=== PATIENT | female | born 1940 | race Caucasian/White ===

== ENCOUNTER 2018-01-05 20:51 | Emergency (ER) | payer MEDICARE ==
--- NOTE | 2018-01-05 22:12 | EDM.PDOC ---
ED HPI GENERAL MEDICAL PROBLEM - General Chief Complaint: Respiratory Problem Stated Complaint: SHORTNESS OF BREATH Time Seen by Provider: 01/05/18 22:12 Source of Information: Reports: Patient History Limitations: Reports: No Limitations - History of Present Illness INITIAL COMMENTS - FREE TEXT/NARRATIVE: PT ARRIVED WITH INCREASED SOB. sHE WAS HAVINFG A VERY DIFFICULT TIME ALL AFTERNOON. sHE HAS NOT HAD CHEST PAIN. hER LEFT LEG CONTINUES TO SWELL BUT THE RT DOES NOT. sHE HAS BEEN USING HER NEBS. Onset: Gradual Duration: Hour(s): Location: Reports: Chest Associated Symptoms: Reports: Cough, Shortness of Breath - Related Data Allergies Allergy/AdvReac Type Severity Reaction Status Date / Time No Known Allergies Allergy Verified 12/20/17 09:16 Home Meds: Home Meds Albuterol Sulfate [Proair Hfa] 1 puff IH ASDIRECTED PRN 08/12/13 [History] Aspirin [Thelma Chewable Aspirin] 81 mg PO DAILY 08/12/13 [History] Insulin Aspart [Novolog Flexpen] 3 units SQ TIDAC 08/12/13 [History] Insulin Glarg,Human.Rec.Analog [Lantus] 15 unit SUBCUT QPM 08/12/13 [History] Insulin Glarg,Human.Rec.Analog [Lantus] 31 unit SUBCUT QAM 08/12/13 [History] Ipratropium/Albuterol Sulfate [Duoneb 0.5 MG-3 MG/3 ML] 3 ml IH QID 08/12/13 [ History] Omeprazole 20 mg PO DAILY 08/12/13 [History] metFORMIN HCl [Metformin HCl ER] 500 mg PO BID 08/12/13 [History] Carvedilol [Coreg] 3.125 mg PO BID 12/20/17 [History] Cevimeline HCl 30 mg PO TID 12/20/17 [History] Mometasone/Formoterol [Dulera 200 MCG/5 MCG] 2 puff INH BID 12/20/17 [History] Furosemide 20 mg PO DAILY #30 tablet 12/24/17 [Rx] Lactobacillus Acidophilus [Acidophilus Lactobacillus] 1 each PO BID #60 capsule 12/24/17 [Rx] Magnesium Oxide 400 mg PO BID #60 tablet 12/24/17 [Rx] Past Medical History HEENT History: Reports: Cataract Cardiovascular History: Reports: Heart Failure, Hypertension Other Cardiovascular History: PAD Respiratory History: Reports: Bronchitis, Recurrent, COPD, Other (See Below) Other Respiratory History: Plural plaque Gastrointestinal History: Reports: GERD Genitourinary History: Reports: Urinary Incontinence 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: Musculoskeletal History: Reports: Back Pain, Chronic Endocrine/Metabolic History: Reports: Diabetes, Type II Dermatologic History: Reports: Psoriasis - Past Surgical History HEENT Surgical History: Reports: Cataract Surgery GI Surgical History: Reports: Appendectomy Musculoskeletal Surgical History: Reports: Arthroscopic Knee Social & Family History - Tobacco Use Smoking Status *Q: Former Smoker Used Tobacco, but Quit: Yes Month/Year Tobacco Last Used: 2004 - Caffeine Use Caffeine Use: Reports: Soda - Recreational Drug Use Recreational Drug Use: No ED ROS GENERAL - Review of Systems Review Of Systems: See Below Constitutional: Reports: No Symptoms HEENT: Reports: No Symptoms Respiratory: Reports: Shortness of Breath, Wheezing Cardiovascular: Reports: Other (POSSIBLE FLUID OVERLOAD) Endocrine: Reports: No Symptoms GI/Abdominal: Reports: No Symptoms : Reports: No Symptoms Musculoskeletal: Reports: Hand Pain Skin: Reports: No Symptoms Neurological: Reports: No Symptoms ED EXAM, GENERAL - Physical Exam Exam: See Below Free Text/Narrative:: PT ARRIVED WITH A HISTORY OF COPD AND SOME FLUID OVERLOAD. sHE WAS VERY SOB ALL AFTERNOON. sHE HAS BEEN TAKING LASIX 20MG DAILY. sHE DID NOT HAVE CHEST PAIN. Exam Limited By: No Limitations General Appearance: Alert, Anxious, Moderate Distress Ears: Normal TMs Nose: Normal Inspection Throat/Mouth: Normal Inspection Head: Atraumatic Neck: Normal Inspection Respiratory/Chest: Decreased Breath Sounds, Crackles, Wheezing Cardiovascular: Regular Rate, Rhythm GI/Abdominal: Soft, Non-Tender Rectal (Female) Exam: Deferred Back Exam: Normal Inspection Extremities: Normal Inspection, Other (LEFT LEG IS SWOLLEN. ) Neurological: Alert, Oriented, Normal Cognition Psychiatric: Normal Affect Course - Vital Signs Last Recorded V/S: Last Vital Signs Temp 36.4 C 01/05/18 20:59 Pulse 102 H 01/05/18 23:10 Resp 16 01/05/18 23:10 BP 116/55 L 01/05/18 23:23 Pulse Ox 94 L 01/05/18 23:10 - Orders/Labs/Meds Orders: Active Orders 24 hr Category Date Time Status RT Aerosol Therapy [RC] ASDIRECTED Care 01/05/18 23:29 Active Chest 1V Frontal [CR] Stat Exams 01/05/18 20:53 Taken VL Duplex Lwr Ext Veins Ltd Lt [US] Stat Exams 01/05/18 22:13 Taken PTT,PARTIAL THROMBOPLSTIN TIME [COAG] Stat Lab 01/06/18 01:19 Ordered UA W/MICROSCOPIC [URIN] Urgent Lab 01/05/18 23:44 Ordered Labs: Laboratory Tests 01/05/18 01/05/18 01/05/18 Range/Units 21:09 21:09 22:02 WBC 16.1 H (4.5-11.0) K/uL RBC 5.50 (3.30-5.50) M/uL Hgb 15.2 H (12.0-15.0) g/dL Hct 48.4 H (36.0-48.0) % MCV 88 (80-98) fL MCH 28 (27-31) pg MCHC 31 L (32-36) % Plt Count 313 (150-400) K/uL Neut % (Auto) 78 H (36-66) % Lymph % (Auto) 15 L (24-44) % [place] % (Auto) 6 (2-6) % Eos % (Auto) 1 L (2-4) % Baso % (Auto) 1 (0-1) % D-Dimer, Quantitative (0.0-400.0) ng/mL Sodium 135 L (140-148) mmol/L Potassium 5.1 (3.6-5.2) mmol/L Chloride 100 (100-108) mmol/L Carbon Dioxide 27 (21-32) mmol/L Anion Gap 13.1 (5.0-14.0) mmol/L BUN 18 (7-18) mg/dL Creatinine 1.3 H D (0.6-1.0) mg/dL Est Cr Clr Drug Dosing 33.65 mL/min Estimated GFR (MDRD) 40 L (>60) Glucose 293 H (74-106) mg/dL Calcium 8.9 (8.5-10.1) mg/dL Total Bilirubin 0.4 D (0.2-1.0) mg/dL AST 53 H D (15-37) U/L ALT 25 (12-78) U/L Alkaline Phosphatase 102 (46-116) U/L Troponin I (0.000-0.056) ng/mL NT-Pro-B Natriuret Pep 71216 H (5-450) pg/mL Total Protein 6.5 (6.4-8.2) g/dL Albumin 2.5 L (3.4-5.0) g/dL Globulin 4.0 H (2.3-3.5) g/dL Albumin/Globulin Ratio 0.6 L (1.2-2.2) Urine Color Urine Appearance Urine pH (4.5-8.0) Ur Specific [place] (1.008-1.030) Urine Protein (NEGATIVE) mg/dL Urine Glucose (UA) (NEGATIVE) mg/dL Urine Ketones (NEGATIVE) mg/dL Urine Occult Blood (NEGATIVE) Urine Nitrite (NEGATIVE) Urine Bilirubin (NEGATIVE) Urine Urobilinogen (NORMAL) mg/dL Ur Leukocyte Esterase (NEGATIVE) Urine RBC (0-5) Urine WBC (0-5) Ur Epithelial Cells Amorphous Sediment Urine Bacteria Urine Mucus 01/05/18 01/05/18 01/06/18 Range/Units 22:11 23:44 00:06 WBC (4.5-11.0) K/uL RBC (3.30-5.50) M/uL Hgb (12.0-15.0) g/dL Hct (36.0-48.0) % MCV (80-98) fL MCH (27-31) pg MCHC (32-36) % Plt Count (150-400) K/uL Neut % (Auto) (36-66) % Lymph % (Auto) (24-44) % [place] % (Auto) (2-6) % Eos % (Auto) (2-4) % Baso % (Auto) (0-1) % D-Dimer, Quantitative 661 H (0.0-400.0) ng/mL Sodium (140-148) mmol/L Potassium (3.6-5.2) mmol/L Chloride (100-108) mmol/L Carbon Dioxide (21-32) mmol/L Anion Gap (5.0-14.0) mmol/L BUN (7-18) mg/dL Creatinine (0.6-1.0) mg/dL Est Cr Clr Drug Dosing mL/min Estimated GFR (MDRD) (>60) Glucose (74-106) mg/dL Calcium (8.5-10.1) mg/dL Total Bilirubin (0.2-1.0) mg/dL AST (15-37) U/L ALT (12-78) U/L Alkaline Phosphatase (46-116) U/L Troponin I 1.627 H* (0.000-0.056) ng/mL NT-Pro-B Natriuret Pep (5-450) pg/mL Total Protein (6.4-8.2) g/dL Albumin (3.4-5.0) g/dL Globulin (2.3-3.5) g/dL Albumin/Globulin Ratio (1.2-2.2) Urine Color Yellow Urine Appearance Cloudy Urine pH 5.0 (4.5-8.0) Ur Specific [place] 1.020 (1.008-1.030) Urine Protein 30 H (NEGATIVE) mg/dL Urine Glucose (UA) 50 H (NEGATIVE) mg/dL Urine Ketones Negative (NEGATIVE) mg/dL Urine Occult Blood Large (NEGATIVE) Urine Nitrite Negative (NEGATIVE) Urine Bilirubin Small (NEGATIVE) Urine Urobilinogen 1 (NORMAL) mg/dL Ur Leukocyte Esterase Moderate (NEGATIVE) Urine RBC 10-20 H (0-5) Urine WBC 5-10 H (0-5) Ur Epithelial Cells Moderate Amorphous Sediment Moderate Urine Bacteria Few Urine Mucus Few Meds: Medications Discontinued Medications Generic Name Dose Route Start Last Admin Trade Name Freq PRN Reason Stop Dose Admin Albuterol 2.5 mg 01/05/18 23:29 01/06/18 00:01 Proventil Neb Soln NEB 01/05/18 23:30 2.5 mg ONETIME ONE Administration Furosemide 60 mg 01/05/18 23:10 01/05/18 23:23 Lasix IVPUSH 01/05/18 23:11 60 mg ONETIME ONE Administration Insulin Human Regular 3 unit 01/05/18 23:11 01/05/18 23:20 Novolin R SUBCUT 01/05/18 23:12 3 unit ONETIME ONE Administration Protocol - Re-Assessments/Exams Free Text/Narrative Re-Assessment/Exam: 01/05/18 23:24 CHEST XRAY POSSIBLE MILD CHF. hER BNP IS ELEVATED. sHE WILL BE GIVEN LASIX 60MG IV. 01/06/18 00:07 pt is diuresing alot with the iv lasix. She has only portable o2 equipment at home. . She does not think this is working. Her o2 sats dropped drastically this afternoon. 01/06/18 01:20 pt had a trop which was markedly elevated at 1.627. She at first did not want to go to [place] for a workup and then she decided that she would go. Departure - Departure Time of Disposition: 00:09 Disposition: DC/Tfer to Acute Hospital 02 Condition: Fair Clinical Impression: Fluid overload, COPD (chronic obstructive pulmonary disease) - Discharge Information Referrals: Dajuan Amador MD [Primary Care Provider] - Forms: ED Department Discharge Care Plan Goals: transfer to [facility] [address]. - My Orders Last 24 Hours: My Active Orders 01/05/18 20:53 Chest 1V Frontal [CR] Stat 01/05/18 22:13 VL Duplex Lwr Ext Veins Ltd Lt [US] Stat 01/05/18 23:29 RT Aerosol Therapy [RC] ASDIRECTED 01/05/18 23:44 UA W/MICROSCOPIC [URIN] Urgent 01/06/18 01:19 PTT,PARTIAL THROMBOPLSTIN TIME [COAG] Stat - Assessment/Plan Last 24 Hours: My Active Orders 01/05/18 20:53 Chest 1V Frontal [CR] Stat 01/05/18 22:13 VL Duplex Lwr Ext Veins Ltd Lt [US] Stat 01/05/18 23:29 RT Aerosol Therapy [RC] ASDIRECTED 01/05/18 23:44 UA W/MICROSCOPIC [URIN] Urgent 01/06/18 01:19 PTT,PARTIAL THROMBOPLSTIN TIME [COAG] Stat
[2018-01-05] MEDS ORDERED: Furosemide 40 MG/4 ML VIAL IVPUSH ONE (23:10)
[2018-01-05] MEDS ORDERED: Insulin Regular, Human 100 Units/ML 10 ML Vial SUBCUT ONE (23:11)
[2018-01-05] MEDS ORDERED: Albuterol 0.083% 2.5 MG/3 ML Neb Soln NEB ONE (23:29)
--- NOTE | 2018-01-06 00:51 | PCM.HP ---
H&P History of Present Illness - Related Data Allergies/Adverse Reactions: Allergies Allergy/AdvReac Type Severity Reaction Status Date / Time No Known Allergies Allergy Verified 12/20/17 09:16 Home Medications: Home Meds Albuterol Sulfate [Proair Hfa] 1 puff IH ASDIRECTED PRN 08/12/13 [History] Aspirin [Thelma Chewable Aspirin] 81 mg PO DAILY 08/12/13 [History] Insulin Aspart [Novolog Flexpen] 3 units SQ TIDAC 08/12/13 [History] Insulin Glarg,Human.Rec.Analog [Lantus] 15 unit SUBCUT QPM 08/12/13 [History] Insulin Glarg,Human.Rec.Analog [Lantus] 31 unit SUBCUT QAM 08/12/13 [History] Ipratropium/Albuterol Sulfate [Duoneb 0.5 MG-3 MG/3 ML] 3 ml IH QID 08/12/13 [ History] Omeprazole 20 mg PO DAILY 08/12/13 [History] metFORMIN HCl [Metformin HCl ER] 500 mg PO BID 08/12/13 [History] Carvedilol [Coreg] 3.125 mg PO BID 12/20/17 [History] Cevimeline HCl 30 mg PO TID 12/20/17 [History] Mometasone/Formoterol [Dulera 200 MCG/5 MCG] 2 puff INH BID 12/20/17 [History] Furosemide 20 mg PO DAILY #30 tablet 12/24/17 [Rx] Lactobacillus Acidophilus [Acidophilus Lactobacillus] 1 each PO BID #60 capsule 12/24/17 [Rx] Magnesium Oxide 400 mg PO BID #60 tablet 12/24/17 [Rx] Past Medical History HEENT History: Reports: Cataract Cardiovascular History: Reports: Heart Failure, Hypertension Other Cardiovascular History: PAD Respiratory History: Reports: Bronchitis, Recurrent, COPD, Other (See Below) Other Respiratory History: Plural plaque Gastrointestinal History: Reports: GERD Genitourinary History: Reports: Urinary Incontinence 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: Musculoskeletal History: Reports: Back Pain, Chronic Endocrine/Metabolic History: Reports: Diabetes, Type II Dermatologic History: Reports: Psoriasis - Past Surgical History HEENT Surgical History: Reports: Cataract Surgery GI Surgical History: Reports: Appendectomy Musculoskeletal Surgical History: Reports: Arthroscopic Knee Social & Family History - Tobacco Use Smoking Status *Q: Former Smoker Used Tobacco, but Quit: Yes Month/Year Tobacco Last Used: 2004 - Caffeine Use Caffeine Use: Reports: Soda - Recreational Drug Use Recreational Drug Use: No Exam - Vital Signs Vital Signs: Last Vital Signs Temp 36.4 C 01/05/18 20:59 Pulse 102 H 01/05/18 23:10 Resp 16 01/05/18 23:10 BP 116/55 L 01/05/18 23:23 Pulse Ox 94 L 01/05/18 23:10 Weight: 83.915 kg - Patient Data Lab Results Last 24 hrs: Laboratory Results - last 24 hr 01/05/18 01/05/18 01/05/18 Range/Units 21:09 21:09 22:02 WBC 16.1 H (4.5-11.0) K/uL RBC 5.50 (3.30-5.50) M/uL Hgb 15.2 H (12.0-15.0) g/dL Hct 48.4 H (36.0-48.0) % MCV 88 (80-98) fL MCH 28 (27-31) pg MCHC 31 L (32-36) % Plt Count 313 (150-400) K/uL Neut % (Auto) 78 H (36-66) % Lymph % (Auto) 15 L (24-44) % [place] % (Auto) 6 (2-6) % Eos % (Auto) 1 L (2-4) % Baso % (Auto) 1 (0-1) % D-Dimer, Quantitative (0.0-400.0) ng/mL Sodium 135 L (140-148) mmol/L Potassium 5.1 (3.6-5.2) mmol/L Chloride 100 (100-108) mmol/L Carbon Dioxide 27 (21-32) mmol/L Anion Gap 13.1 (5.0-14.0) mmol/L BUN 18 (7-18) mg/dL Creatinine 1.3 H D (0.6-1.0) mg/dL Est Cr Clr Drug Dosing 33.65 mL/min Estimated GFR (MDRD) 40 L (>60) Glucose 293 H (74-106) mg/dL Calcium 8.9 (8.5-10.1) mg/dL Total Bilirubin 0.4 D (0.2-1.0) mg/dL AST 53 H D (15-37) U/L ALT 25 (12-78) U/L Alkaline Phosphatase 102 (46-116) U/L NT-Pro-B Natriuret Pep 24204 H (5-450) pg/mL Total Protein 6.5 (6.4-8.2) g/dL Albumin 2.5 L (3.4-5.0) g/dL Globulin 4.0 H (2.3-3.5) g/dL Albumin/Globulin Ratio 0.6 L (1.2-2.2) Urine Color Urine Appearance Urine pH (4.5-8.0) Ur Specific [place] (1.008-1.030) Urine Protein (NEGATIVE) mg/dL Urine Glucose (UA) (NEGATIVE) mg/dL Urine Ketones (NEGATIVE) mg/dL Urine Occult Blood (NEGATIVE) Urine Nitrite (NEGATIVE) Urine Bilirubin (NEGATIVE) Urine Urobilinogen (NORMAL) mg/dL Ur Leukocyte Esterase (NEGATIVE) Urine RBC (0-5) Urine WBC (0-5) Ur Epithelial Cells Amorphous Sediment Urine Bacteria Urine Mucus 01/05/18 01/05/18 Range/Units 22:11 23:44 WBC (4.5-11.0) K/uL RBC (3.30-5.50) M/uL Hgb (12.0-15.0) g/dL Hct (36.0-48.0) % MCV (80-98) fL MCH (27-31) pg MCHC (32-36) % Plt Count (150-400) K/uL Neut % (Auto) (36-66) % Lymph % (Auto) (24-44) % [place] % (Auto) (2-6) % Eos % (Auto) (2-4) % Baso % (Auto) (0-1) % D-Dimer, Quantitative 661 H (0.0-400.0) ng/mL Sodium (140-148) mmol/L Potassium (3.6-5.2) mmol/L Chloride (100-108) mmol/L Carbon Dioxide (21-32) mmol/L Anion Gap (5.0-14.0) mmol/L BUN (7-18) mg/dL Creatinine (0.6-1.0) mg/dL Est Cr Clr Drug Dosing mL/min Estimated GFR (MDRD) (>60) Glucose (74-106) mg/dL Calcium (8.5-10.1) mg/dL Total Bilirubin (0.2-1.0) mg/dL AST (15-37) U/L ALT (12-78) U/L Alkaline Phosphatase (46-116) U/L NT-Pro-B Natriuret Pep (5-450) pg/mL Total Protein (6.4-8.2) g/dL Albumin (3.4-5.0) g/dL Globulin (2.3-3.5) g/dL Albumin/Globulin Ratio (1.2-2.2) Urine Color Yellow Urine Appearance Cloudy Urine pH 5.0 (4.5-8.0) Ur Specific [place] 1.020 (1.008-1.030) Urine Protein 30 H (NEGATIVE) mg/dL Urine Glucose (UA) 50 H (NEGATIVE) mg/dL Urine Ketones Negative (NEGATIVE) mg/dL Urine Occult Blood Large (NEGATIVE) Urine Nitrite Negative (NEGATIVE) Urine Bilirubin Small (NEGATIVE) Urine Urobilinogen 1 (NORMAL) mg/dL Ur Leukocyte Esterase Moderate (NEGATIVE) Urine RBC 10-20 H (0-5) Urine WBC 5-10 H (0-5) Ur Epithelial Cells Moderate Amorphous Sediment Moderate Urine Bacteria Few Urine Mucus Few Result Diagrams: 01/05/18 21:09 01/05/18 21:09 Orders Last 24hrs: Active Orders 24 hr Category Date Time Status RT Aerosol Therapy [RC] ASDIRECTED Care 01/05/18 23:29 Active Chest 1V Frontal [CR] Stat Exams 01/05/18 20:53 Taken VL Duplex Lwr Ext Veins Ltd Lt [US] Stat Exams 01/05/18 22:13 Taken TROPONIN I [CHEM] Stat Lab 01/06/18 00:06 Ordered UA W/MICROSCOPIC [URIN] Urgent Lab 01/05/18 23:44 Ordered Assessment/Plan Comment:: Assessment/Plan Comment:: ASSESSMENT AND PLAN COPD EXACERBATION SECONDARY TO BRONCHITIS WITH HYPOXIA-progressive symptoms over the last week, chest x-ray shows no obvious infiltrates or pulmonary edema. White blood cell count is modestly elevated. -Supplemental oxygen as needed -Blood and sputum cultures pending -IV fluids for hydration -Monitor in ICU until respiratory status has stabilized -Nebulized albuterol and duo nebs -IV Rocephin and azithromycin pending culture results COR PULMONALE-secondary to COPD, likely cause for elevation in BNP -Initiate diuretic therapy when more stable DEHYDRATION-likely cause of elevated lactic acid level -IV fluids -Follow-up lactic acid level late afternoon TYPE 2 DIABETES MELLITUS -Hold metformin and scheduled NovoLog until appetite improves -4 times a day glucometers -Continue usual dose of long-acting insulin -Moderate dose sliding scale NovoLog MAINTENANCE ISSUES -DVT prophylaxis; Lovenox 40 mg subcutaneous daily -GI prophylaxis; continue outpatient PPI therapy -Austin catheter; not indicated -Nutrition; consistent carb diet -Nicotine dependence; not required CODE STATUS-FULL CODE ADMISSION STATUS-patient will be admitted to inpatient status, expect at least a 2 night hospital stay for evaluation and management of problems as outlined above. At the time of this admission I do not reasonably expected evaluation and management of this problem will require more than a 96 hour hospital stay. DISPOSITION-anticipate discharge to home after the hospital stay. PRIMARY CARE PROVIDER-Dr. Amador Additional CC's: Dajuan Amador
[2018-01-06] MEDS ORDERED: Aspirin 81 MG Tab.Chew PO ONE (01:26)
[2018-01-06] MEDS ORDERED: Enoxaparin 80 MG/0.8 ML Syringe SUBCUT ONE (01:26)
[2018-01-06 01:45] VITALS: BP 118/59
--- NOTE | 2018-01-06 08:50 | CR ---
CHEST: Portable CLINICAL HISTORY:SOB COMPARISON:12/21/2017 FINDINGS: There is patchy fibrosis. Patient has calcified pleural plaque bilaterally. Heart size and pulmonary vascular normal. There are atherosclerotic changes in the aorta.. IMPRESSION: COPD with patchy interstitial fibrosis Scattered pleural plaque formation related to previous asbestos exposure No change from prior study
--- NOTE | 2018-01-06 08:55 | US ---
VL Duplex Lwr Ext Veins Ltd Lt INDICATION: swelling and tenderness in the left leg. FINDINGS: Ultrasound examination of the lower extremity using Doppler and compressive technique demon strates that the common femoral, femoral, and popliteal veins are patent, and negative for thrombus. The calf veins were segmentally visualized and are negative where seen. IMPRESSION: Negative for deep venous thrombosis.
== END 2018-01-06 02:30 ==
LOC: JP.ED 20:51
DX: J44.9 Chronic obstructive pulmonary disease, unspecified (principal); E87.70 Fluid overload, unspecified; E11.9 Type 2 diabetes mellitus without complications; I11.0 Hypertensive heart disease with heart failure; I50.9 Heart failure, unspecified; Z79.82 Long term (current) use of aspirin; Z79.899 Other long term (current) drug therapy; Z79.4 Long term (current) use of insulin; Z87.891 Personal history of nicotine dependence
CPT/HCPCS: 36415; 71045; 80053; 81001; 83880; 84484; 85025; 85379; 85730; 93971; 94640; 96372; 96374; 99285; A9270; J1650; J1940

== ENCOUNTER 2019-12-23 11:10 | Inpatient (IN) | payer MEDICARE, OTHER, SELFPAY ==
--- NOTE | 2019-12-23 11:20 | EDM.PDOC ---
ED HPI GENERAL MEDICAL PROBLEM - General Stated Complaint: [facility] Time Seen by Provider: 12/23/19 11:12 Source of Information: Reports: EMS, RN - History of Present Illness INITIAL COMMENTS - FREE TEXT/NARRATIVE: Pt states started feeling bad about 4 days ago. Pt has COPD. Was tested for COVID yesterday in a drive through setting no results yet. She has a cough, is short of breath and states has had a fever. Currently on 4L O2 on for her COPD. Her sats were in the mid nineties in the ambulance prior to arrival. Pt has had nausea and vomiting was feeling worse this morning and called the ambulance to be seen in ER. Onset: Sudden Onset Date: 12/19/19 Onset Time: 08:00 Duration: Day(s):, Getting Worse Location: Reports: Chest (short of breath), Abdomen (nausea & vomiting no pain) Severity: Moderate Improves with: Reports: None Worsens with: Reports: Movement Context: Reports: Sick Contact Associated Symptoms: Reports: Cough, Fever/Chills, Loss of Appetite, Nausea/Vomiting, Shortness of Breath, Weakness - Related Data Allergies Allergy/AdvReac Type Severity Reaction Status Date / Time No Known Allergies Allergy Verified 12/23/19 11:17 Home Meds: Home Meds Albuterol Sulfate [Proair Hfa] 2 puff IH Q4HR PRN 08/12/13 [History] Aspirin [Thelma Chewable Aspirin] 81 mg PO DAILY 08/12/13 [History] Insulin Aspart [Novolog Flexpen] 2 units SQ ASDIRECTED 08/12/13 [History] Insulin Glarg,Human.Rec.Analog [Lantus] 15 unit SUBCUT QPM 08/12/13 [History] Insulin Glarg,Human.Rec.Analog [Lantus] 30 unit SUBCUT QAM 08/12/13 [History] Ipratropium/Albuterol Sulfate [Duoneb 0.5 MG-3 MG/3 ML] 3 ml IH Q6HR PRN 08/12/13 [History] Omeprazole 20 mg PO DAILY 08/12/13 [History] metFORMIN HCl [Metformin ER Osmotic] 1,000 mg PO BID 08/12/13 [History] carvediloL [Coreg] 6.25 mg PO BID 12/20/17 [History] Acetaminophen [Tylenol] 650 mg PO Q4HR PRN 12/23/19 [History] Candesartan [Atacand] 4 mg PO DAILY 12/23/19 [History] Fluticasone Propionate [Flonase] 2 spray IH DAILY 12/23/19 [History] Fluticasone/Umeclidin/Vilanter [Trelegy Ellipta 100-62.5-25] 1 puff IH DAILY 12/23/19 [History] Tolterodine Tartrate [Detrol LA] 4 mg PO DAILY 12/23/19 [History] Triamcinolone Acetonide [Kenalog 0.1% Crm] 1 dose TOP BID 12/23/19 [History] atorvaSTATin [Lipitor] 40 mg PO BEDTIME 12/23/19 [History] predniSONE 10 mg PO DAILY 12/23/19 [History] Past Medical History HEENT History: Reports: Cataract Cardiovascular History: Reports: Heart Failure, Hypertension Other Cardiovascular History: PAD Respiratory History: Reports: Bronchitis, Recurrent, COPD, Other (See Below) Other Respiratory History: Plural plaque Gastrointestinal History: Reports: GERD Genitourinary History: Reports: Urinary Incontinence [employer] 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 Denies: Wheezing, Pleuritic Chest Pain, Hemoptysis Cardiovascular: Reports: Dyspnea on Exertion. Denies: Chest Pain, Blood Pressure Problem, Palpitations, Syncope Endocrine: Reports: Fatigue GI/Abdominal: Reports: Decreased Appetite, Nausea, Vomiting. Denies: Abdominal Pain, Black Stool, Bloody Stool, Constipation, Diarrhea, Difficulty Swallowing, Distension, Flatus : Denies: Discharge, Dysuria, Frequency Musculoskeletal: Reports: No Symptoms Skin: Reports: No Symptoms Neurological: Reports: Difficulty Walking (due to weakness), Weakness. Denies: Confusion, Headache, Numbness Psychiatric: Reports: Anxiety ED EXAM, GENERAL - Physical Exam Exam: See Below Exam Limited By: No Limitations General Appearance: Alert, WD/WN, Anxious, Moderate Distress Ears: Normal External Exam, Normal Canal, Hearing Grossly Normal, Normal TMs Nose: Normal Inspection, Normal Mucosa, No Blood Throat/Mouth: Normal Lips, Normal Voice, Other (white spots roof of mouth, cheeks) Head: Atraumatic, Normocephalic Neck: Normal Inspection, Supple, Non-Tender, Full Range of Motion Respiratory/Chest: Respiratory Distress, Accessory Muscle Use. No: No Accessory Muscle Use Cardiovascular: Normal Peripheral Pulses, Regular Rate, Rhythm, No Gallop, No JVD, No Murmur, No Rub GI/Abdominal: Normal Bowel Sounds, Soft, Tender Back Exam: Normal Inspection, Full Range of Motion Extremities: Non-Tender, No Pedal Edema, Normal Capillary Refill Neurological: Alert, Oriented, CN II-XII Intact, Normal Cognition Psychiatric: Normal Affect, Normal Mood, Anxious Skin Exam: Warm, Dry, Intact, Normal Color, No Rash, Other (multiple bruising - ASA use) Lymphatic: No Adenopathy Course - Vital Signs Last Recorded V/S: Last Vital Signs Temp 36.3 C 12/23/19 14:56 Pulse 93 12/23/19 14:56 Resp 20 12/23/19 14:56 BP 104/78 12/23/19 14:56 Pulse Ox 95 12/23/19 14:56 Tylenol for low grade temp - Orders/Labs/Meds Orders: Active Orders 24 hr Category Date Time Status CULTURE BLOOD [BC] Urgent Lab 12/23/19 11:35 Received CULTURE BLOOD [BC] Urgent Lab 12/23/19 12:49 Received Medication Orders Acetaminophen (Tylenol) 650 mg PO Q4H PRN PRN Reason: Pain (Mild 1-3)/fever Albuterol (Proventil Neb Soln) 2.5 mg NEB Q4H PRN PRN Reason: Shortness Of Breath/wheezing Albuterol/Ipratropium (Duoneb 3.0-0.5 Mg/3 Ml) 3 ml NEB QIDRT [facility] Aspirin (Aspirin) 81 mg PO DAILY [facility] Atorvastatin Calcium (Lipitor) 40 mg PO BEDTIME [facility] Carvedilol (Coreg) 6.25 mg PO BID [facility] Dextrose (Glutose 15) 15 gm PO ONETIME PRN PRN Reason: Hypoglycemia Dextrose/Water (Dextrose 50% In Water) 50 ml IV ONETIME PRN PRN Reason: Hypoglycemia Enoxaparin Sodium (Lovenox) 40 mg SUBCUT Q24H [facility] Fluticasone Propionate (Flonase) 0 gm BISI DAILY [facility] Glycopyrrolate/Indacaterol (Utibron Neohaler 27.5-15.6 Mcg) 0 each IH BIDRT [facility] Ceftriaxone Sodium 1 gm/ (Sodium Chloride) 50 mls @ 100 mls/hr IV Q24H [facility] Last Admin: 12/23/19 15:10 Dose: 100 mls/hr Documented by: PAU Doxycycline Hyclate 100 mg/ (Sodium Chloride) 100 mls @ 100 mls/hr IV Q12H [facility]ETE Sodium Chloride (Normal Saline) 1,000 mls @ 250 mls/hr IV ASDIRECTED TETE Stop: 12/23/19 19:31 Sodium Chloride (Normal Saline) 1,000 mls @ 125 mls/hr IV ASDIRECTED [facility] Insulin Glargine (Lantus Solostar) 15 units SUBCUT QPM [facility] Insulin Glargine (Lantus Solostar) 30 units SUBCUT QAM [facility] Insulin Human Lispro (Humalog) 0 unit SUBCUT QIDACANDBED [facility]; Protocol Lactobacillus Rhamnosus (Culturelle) 1 cap PO BID [facility] Losartan Potassium (Cozaar) 25 mg PO DAILY [facility] Mometasone Furoate (Asmanex 220 Mcg) 1 puff INH DAILY@0730 [facility] Ondansetron HCl (Zofran) 4 mg IV Q4H PRN PRN Reason: Nausea/Vomiting Pantoprazole Sodium (Protonix) 40 mg PO ACBREAKFAST [facility] Polyethylene Glycol (Miralax) 17 gm PO DAILY PRN PRN Reason: Constipation Sodium Chloride (Saline Flush) 10 ml FLUSH ASDIRECTED PRN PRN Reason: Keep Vein Open Tolterodine Tartrate (Detrol) 2 mg PO BID [facility] Labs: Laboratory Tests 12/23/19 12/23/19 12/23/19 Range/Units 11:23 11:23 11:43 WBC 21.4 H (4.5-11.0) K/uL RBC 4.38 (3.30-5.50) M/uL Hgb 12.1 D (12.0-15.0) g/dL Hct 39.6 (36.0-48.0) % MCV 90 (80-98) fL MCH 28 (27-31) pg MCHC 31 L (32-36) % Plt Count 290 (150-400) K/uL Neut % (Auto) 87 H (36-66) % Lymph % (Auto) 5 L (24-44) % Sac % (Auto) 8 H (2-6) % Eos % (Auto) 0 L (2-4) % Baso % (Auto) 0 (0-1) % Puncture Site Lt brachial ABG pH 7.406 (7.350-7.450) ABG pCO2 41.5 (35.0-42.0) mmHg ABG pO2 63.4 L (75.0-100.0) mmHg ABG HCO3 25.5 (22.0-26.0) mmol/L ABG Total CO2 23.0 (21.0-25.0) mmol/L ABG O2 Saturation 91.3 L (95.0-98.0) % ABG O2 Content 15.6 (15.0-23.0) %vol ABG Base Excess 1.2 mm/L ABG Hemoglobin 12.4 (12.0-16.0) g/dL ABG Oxyhemoglobin 89.5 % ABG Carboxyhemoglobin 1.4 (0.0-1.6) % ABG Methemoglobin 0.6 % Emeterio Test Not performed O2 Delivery Device Nasal cannula Oxygen Flow Rate 4.0 L Sodium (140-148) mmol/L Potassium (3.6-5.2) mmol/L Chloride (100-108) mmol/L Carbon Dioxide (21-32) mmol/L Anion Gap (5.0-14.0) mmol/L BUN (7-18) mg/dL Creatinine (0.6-1.0) mg/dL Est Cr Clr Drug Dosing mL/min Estimated GFR (MDRD) (>60) Glucose (74-106) mg/dL Lactic Acid (0.4-2.0) mmol/L Calcium (8.5-10.1) mg/dL Total Bilirubin (0.2-1.0) mg/dL AST (15-37) U/L ALT (12-78) U/L Alkaline Phosphatase (46-116) U/L Lactate Dehydrogenase 219 (82-234) U/L NT-Pro-B Natriuret Pep (5-450) pg/mL Total Protein (6.4-8.2) g/dL Albumin (3.4-5.0) g/dL Globulin (2.3-3.5) g/dL Albumin/Globulin Ratio (1.2-2.2) Urine Color (YELLOW) Urine Appearance (CLEAR) Urine pH (5.0-8.0) Ur Specific Gregory (1.008-1.030) Urine Protein (NEGATIVE) mg/dL Urine Glucose (UA) (NEGATIVE) mg/dL Urine Ketones (NEGATIVE) mg/dL Urine Occult Blood (NEGATIVE) Urine Nitrite (NEGATIVE) Urine Bilirubin (NEGATIVE) Urine Urobilinogen (0.2-1.0) EU/dL Ur Leukocyte Esterase (NEGATIVE) Urine RBC (0-5) Urine WBC (0-5) Ur Epithelial Cells Amorphous Sediment Urine Bacteria Urine Mucus SARS Virus RNA (PCR) (NEGATIVE) 12/23/19 12/23/19 12/23/19 Range/Units 11:46 12:49 12:52 WBC (4.5-11.0) K/uL RBC (3.30-5.50) M/uL Hgb (12.0-15.0) g/dL Hct (36.0-48.0) % MCV (80-98) fL MCH (27-31) pg MCHC (32-36) % Plt Count (150-400) K/uL Neut % (Auto) (36-66) % Lymph % (Auto) (24-44) % Sac % (Auto) (2-6) % Eos % (Auto) (2-4) % Baso % (Auto) (0-1) % Puncture Site ABG pH (7.350-7.450) ABG pCO2 (35.0-42.0) mmHg ABG pO2 (75.0-100.0) mmHg ABG HCO3 (22.0-26.0) mmol/L ABG Total CO2 (21.0-25.0) mmol/L ABG O2 Saturation (95.0-98.0) % ABG O2 Content (15.0-23.0) %vol ABG Base Excess mm/L ABG Hemoglobin (12.0-16.0) g/dL ABG Oxyhemoglobin % ABG Carboxyhemoglobin (0.0-1.6) % ABG Methemoglobin % Emeterio Test O2 Delivery Device Oxygen Flow Rate L Sodium 135 L (140-148) mmol/L Potassium 4.5 (3.6-5.2) mmol/L Chloride 101 (100-108) mmol/L Carbon Dioxide 27 (21-32) mmol/L Anion Gap 11.5 (5.0-14.0) mmol/L BUN 13 (7-18) mg/dL Creatinine 0.9 (0.6-1.0) mg/dL Est Cr Clr Drug Dosing 47.85 mL/min Estimated GFR (MDRD) > 60 (>60) Glucose 180 H (74-106) mg/dL Lactic Acid 2.4 H (0.4-2.0) mmol/L Calcium 8.7 (8.5-10.1) mg/dL Total Bilirubin 0.5 (0.2-1.0) mg/dL AST 19 (15-37) U/L ALT 16 (12-78) U/L Alkaline Phosphatase 78 (46-116) U/L Lactate Dehydrogenase (82-234) U/L NT-Pro-B Natriuret Pep (5-450) pg/mL Total Protein 6.8 (6.4-8.2) g/dL Albumin 3.1 L (3.4-5.0) g/dL Globulin 3.7 H (2.3-3.5) g/dL Albumin/Globulin Ratio 0.8 L (1.2-2.2) Urine Color (YELLOW) Urine Appearance (CLEAR) Urine pH (5.0-8.0) Ur Specific Gregory (1.008-1.030) Urine Protein (NEGATIVE) mg/dL Urine Glucose (UA) (NEGATIVE) mg/dL Urine Ketones (NEGATIVE) mg/dL Urine Occult Blood (NEGATIVE) Urine Nitrite (NEGATIVE) Urine Bilirubin (NEGATIVE) Urine Urobilinogen (0.2-1.0) EU/dL Ur Leukocyte Esterase (NEGATIVE) Urine RBC (0-5) Urine WBC (0-5) Ur Epithelial Cells Amorphous Sediment Urine Bacteria Urine Mucus SARS Virus RNA (PCR) Negative (NEGATIVE) 12/23/19 12/23/19 Range/Units 13:16 14:20 WBC (4.5-11.0) K/uL RBC (3.30-5.50) M/uL Hgb (12.0-15.0) g/dL Hct (36.0-48.0) % MCV (80-98) fL MCH (27-31) pg MCHC (32-36) % Plt Count (150-400) K/uL Neut % (Auto) (36-66) % Lymph % (Auto) (24-44) % Sac % (Auto) (2-6) % Eos % (Auto) (2-4) % Baso % (Auto) (0-1) % Puncture Site ABG pH (7.350-7.450) ABG pCO2 (35.0-42.0) mmHg ABG pO2 (75.0-100.0) mmHg ABG HCO3 (22.0-26.0) mmol/L ABG Total CO2 (21.0-25.0) mmol/L ABG O2 Saturation (95.0-98.0) % ABG O2 Content (15.0-23.0) %vol ABG Base Excess mm/L ABG Hemoglobin (12.0-16.0) g/dL ABG Oxyhemoglobin % ABG Carboxyhemoglobin (0.0-1.6) % ABG Methemoglobin % Emeterio Test O2 Delivery Device Oxygen Flow Rate L Sodium (140-148) mmol/L Potassium (3.6-5.2) mmol/L Chloride (100-108) mmol/L Carbon Dioxide (21-32) mmol/L Anion Gap (5.0-14.0) mmol/L BUN (7-18) mg/dL Creatinine (0.6-1.0) mg/dL Est Cr Clr Drug Dosing mL/min Estimated GFR (MDRD) (>60) Glucose (74-106) mg/dL Lactic Acid (0.4-2.0) mmol/L Calcium (8.5-10.1) mg/dL Total Bilirubin (0.2-1.0) mg/dL AST (15-37) U/L ALT (12-78) U/L Alkaline Phosphatase (46-116) U/L Lactate Dehydrogenase (82-234) U/L NT-Pro-B Natriuret Pep 558 H (5-450) pg/mL Total Protein (6.4-8.2) g/dL Albumin (3.4-5.0) g/dL Globulin (2.3-3.5) g/dL Albumin/Globulin Ratio (1.2-2.2) Urine Color Yellow (YELLOW) Urine Appearance Slightly cloudy A (CLEAR) Urine pH 5.0 (5.0-8.0) Ur Specific Gregory 1.025 (1.008-1.030) Urine Protein 30 H (NEGATIVE) mg/dL Urine Glucose (UA) Negative (NEGATIVE) mg/dL Urine Ketones Negative (NEGATIVE) mg/dL Urine Occult Blood Moderate H (NEGATIVE) Urine Nitrite Negative (NEGATIVE) Urine Bilirubin Negative (NEGATIVE) Urine Urobilinogen 0.2 (0.2-1.0) EU/dL Ur Leukocyte Esterase Trace H (NEGATIVE) Urine RBC 5-10 H (0-5) Urine WBC 0-5 (0-5) Ur Epithelial Cells Rare Amorphous Sediment Rare Urine Bacteria Few Urine Mucus Few SARS Virus RNA (PCR) (NEGATIVE) Sepsis risk due to potential infection and reported fever. Fever not greater than 100 on admit, Pulse less than 100, Resp rate not greater than 20, O2 Sat on 4 L NC 92-94 %. Risk of fluid overload, Unknown Covid result pending from yesterday Will hold fluids at this time Await lab work and proceed as indicated. Elevated WBC - probable pneumonia - noted on Xray - ABG O2 91.3% on 4L - same delivery as home O2 Elevated Lactic Acid - 2.4 - sepsis risk potential without additional critera of VS on admit to ER BNP elevated at 558 - likely respiratory distress related to pneumonia left lower lobe COVID Rapid test is NEGATIVE Meds: Medications Generic Name Dose Route Start Last Admin Trade Name Freq PRN Reason Stop Dose Admin Acetaminophen 650 mg 12/23/19 15:14 Tylenol PO Q4H PRN Pain (Mild 1-3)/fever Albuterol 2.5 mg 12/23/19 15:14 Proventil Neb Soln NEB Q4H PRN Shortness Of Breath/wheezing Albuterol/Ipratropium 3 ml 12/23/19 16:00 Duoneb 3.0-0.5 Mg/3 Ml NEB QIDRT [facility] Aspirin 81 mg 12/24/19 09:00 Aspirin PO DAILY [facility] Atorvastatin Calcium 40 mg 12/23/19 21:00 Lipitor PO BEDTIME [facility] Carvedilol 6.25 mg 12/23/19 21:00 Coreg PO BID [facility] Dextrose 15 gm 12/23/19 15:14 Glutose 15 PO ONETIME PRN Hypoglycemia Dextrose/Water 50 ml 12/23/19 15:14 Dextrose 50% In Water IV ONETIME PRN Hypoglycemia Enoxaparin Sodium 40 mg 12/23/19 16:00 Lovenox SUBCUT Q24H [facility] Fluticasone Propionate 0 gm 12/24/19 09:00 Flonase BISI DAILY [facility] Glycopyrrolate/Indacaterol 0 each 12/23/19 21:00 Utibron Neohaler 27.5-15.6 Mcg IH BIDRT [facility] Ceftriaxone Sodium 1 gm/ 50 mls @ 100 mls/hr 12/23/19 14:55 12/23/19 15:10 Sodium Chloride IV 100 mls/hr Q24H TETE Administration Doxycycline Hyclate 100 mg/ 100 mls @ 100 mls/hr 12/23/19 16:00 Sodium Chloride IV Q12H [facility] Sodium Chloride 1,000 mls @ 250 mls/hr 12/23/19 15:30 Normal Saline IV 12/23/19 19:31 ASDIRECTED [facility] Sodium Chloride 1,000 mls @ 125 mls/hr 12/23/19 19:15 Normal Saline IV ASDIRECTED [facility] Insulin Glargine 15 units 12/23/19 17:00 Lantus Solostar SUBCUT QPM [facility] Insulin Glargine 30 units 12/24/19 09:00 Lantus Solostar SUBCUT QAM [facility] Insulin Human Lispro 0 unit 12/23/19 17:00 Humalog SUBCUT QIDACANDBED [facility] Protocol Lactobacillus Rhamnosus 1 cap 12/23/19 15:00 Culturelle PO BID [facility] Losartan Potassium 25 mg 12/24/19 09:00 Cozaar PO DAILY [facility] Mometasone Furoate 1 puff 12/24/19 07:30 Asmanex 220 Mcg INH DAILY@0730 [facility] Ondansetron HCl 4 mg 12/23/19 15:14 Zofran IV Q4H PRN Nausea/Vomiting Pantoprazole Sodium 40 mg 12/24/19 07:30 Protonix PO ACBREAKFAST [facility] Polyethylene Glycol 17 gm 12/23/19 15:14 Miralax PO DAILY PRN Constipation Sodium Chloride 10 ml 12/23/19 15:14 Saline Flush FLUSH ASDIRECTED PRN Keep Vein Open Tolterodine Tartrate 2 mg 12/23/19 21:00 Detrol PO BID [facility] Discontinued Medications Generic Name Dose Route Start Last Admin Trade Name Danilo PRN Reason Stop Dose Admin Acetaminophen 650 mg 12/23/19 12:48 12/23/19 12:52 Tylenol PO 12/23/19 12:49 650 mg NOW ONE Administration Albuterol/Ipratropium 3 ml 12/23/19 13:18 Duoneb 3.0-0.5 Mg/3 Ml NEB 12/23/19 13:19 ONETIME ONE Sodium Chloride 1,000 mls @ 100 mls/hr 12/23/19 13:30 12/23/19 13:39 Normal Saline IV 100 mls/hr ASDIRECTED [facility]ETE Administration Sodium Chloride 1,000 mls @ 125 mls/hr 12/23/19 15:14 Normal Saline IV ASDIRECTED [facility] Ondansetron HCl 4 mg 12/23/19 11:26 12/23/19 11:43 Zofran IVPUSH 12/23/19 11:27 4 mg ONETIME ONE Administration Sodium Chloride 10 ml 12/23/19 11:27 12/23/19 11:43 Saline Flush FLUSH 10 ml ASDIRECTED PRN Administration Keep Vein Open initiated IV fluids with elevated Lactic Acid - sepsis risk - - Radiology Interpretation Free Text/Narrative:: Preliminary read: likely pneumonia left lower lobe - Radiologist read - focal airspace opacity left lower lung base suspicious for pneumonia Departure - Departure Time of Disposition: 15:40 Disposition: Admitted As Inpatient 68 Condition: Fair Clinical Impression: COPD exacerbation, Pneumonia Pneumonia Qualifiers: Laterality: left Lung location: lower lobe of lung - Discharge Information *PRESCRIPTION DRUG MONITORING PROGRAM REVIEWED*: No *COPY OF PRESCRIPTION DRUG MONITORING REPORT IN PATIENT LEIGHA: No Sepsis Event Note (ED) - Focused Exam Vital Signs: Vital Signs Temp Pulse Pulse Resp BP BP Pulse Ox 12/23/19 11:27 37.6 C 98 18 116/52 L 92 L 12/23/19 11:26 37.8 C 96 20 116/52 L 92 L ED Communication - Discussed Case With (1) Discussed Case With (1): Inpatient Manager Electronic Date: 12/23/19 Time Called: 14:00 - Conversation Summary Admitting Provider Agreed to Patient's Admission: Yes Summary Comment: Admit to hospital for Pneumonia - My Orders Last 24 Hours: My Active Orders 12/23/19 11:35 CULTURE BLOOD [BC] Urgent 12/23/19 12:49 CULTURE BLOOD [BC] Urgent - Assessment/Plan Last 24 Hours: My Active Orders 12/23/19 11:35 CULTURE BLOOD [BC] Urgent 12/23/19 12:49 CULTURE BLOOD [BC] Urgent Plan: Admit to hospital for pneumonia
[2019-12-23] MEDS ORDERED: Ondansetron 4 MG/2 ML SDV IVPUSH ONE (11:26)
[2019-12-23] MEDS ORDERED: Sodium Chloride 0.9% 10 ML Syringe FLUSH PRN ×2 (11:27→15:14)
[2019-12-23] MEDS ORDERED: Acetaminophen 325 MG Tab PO ONE (12:48)
--- NOTE | 2019-12-23 12:48 | CRLCR ---
INDICATION: Cough, COPD. TECHNIQUE: Portable AP radiograph of the chest. COMPARISON: Chest radiograph 01/06/2018 FINDINGS: Cardiomediastinal silhouette: Within normal limits. Lungs and pleural space: The patient`s chin obscures visualization of the lung apices. There is a focal airspace opacity at the left lung base peripherally. Probable calcified granulomas project over the mid left lung zone, similar to the prior radiograph. Right lung is clear. No pleural effusions. Bones and soft tissues: No acute findings. IMPRESSION: Focal airspace opacity at the left lung base, suspicious for pneumonia. Recommend repeat chest radiograph in 8-10 weeks following treatment to evaluate for resolution. Dictated by Sarah Redd MD @ 12/23/2019 12:47:50 PM Dictated by: Sarah Redd MD @ 12/23/2019 12:48:07 (Electronically Signed)
[2019-12-23] MEDS ORDERED: Albuterol/Ipratropium 3.0-0.5 MG/3 ML Neb Soln NEB ONE (13:18)
[2019-12-23] MEDS ORDERED: Sodium Chloride 0.9% 1,000 ML IV SCH ×4 (13:30→19:15)
--- NOTE | 2019-12-23 14:49 | PCM.HP.2 ---
H&P History of Present Illness - General Date of Service: 12/23/19 Admit Problem/Dx: Admission Diagnosis/Problem Admission Diagnosis/Problem Pneumonia Source of Information: Patient, Provider, RN Notes Reviewed History Limitations: Reports: No Limitations - History of Present Illness Initial Comments - Free Text/Narative: Ms. Dumont is a 78-year-old woman who was admitted through the emergency department with weakness, fever, cough, and shortness of breath secondary to left lung pneumonia and underlying COPD exacerbation. She has a known and longstanding history of oxygen dependent COPD, typically uses 4 L/min via nasal cannula at home. Over the last 2 days she is developed a productive cough with increased shortness of breath weakness and fever. She presented this morning to the emergency department for further evaluation. Chest x-ray shows evidence of left lower lung infiltrate. White blood cell count is elevated and she is also noted to have temperature elevation. Lactic acid level is modestly elevated. She is felt to have early sepsis associated with her pneumonia. Blood cultures have been obtained in the emergency department. She has not received vigorous fluid replacement as she has been hemodynamically stable and does have a known history of congestive heart failure. - Related Data Allergies/Adverse Reactions: Allergies Allergy/AdvReac Type Severity Reaction Status Date / Time No Known Allergies Allergy Verified 12/23/19 11:17 Home Medications: Home Meds Albuterol Sulfate [Proair Hfa] 2 puff IH Q4HR PRN 08/12/13 [History] Aspirin [Thelma Chewable Aspirin] 81 mg PO DAILY 08/12/13 [History] Insulin Aspart [Novolog Flexpen] 2 units SQ ASDIRECTED 08/12/13 [History] Insulin Glarg,Human.Rec.Analog [Lantus] 15 unit SUBCUT QPM 08/12/13 [History] Insulin Glarg,Human.Rec.Analog [Lantus] 30 unit SUBCUT QAM 08/12/13 [History] Ipratropium/Albuterol Sulfate [Duoneb 0.5 MG-3 MG/3 ML] 3 ml IH Q6HR PRN 08/12/13 [History] Omeprazole 20 mg PO DAILY 08/12/13 [History] metFORMIN HCl [Metformin ER Osmotic] 1,000 mg PO BID 08/12/13 [History] carvediloL [Coreg] 6.25 mg PO BID 12/20/17 [History] Acetaminophen [Tylenol] 650 mg PO Q4HR PRN 12/23/19 [History] Candesartan [Atacand] 4 mg PO DAILY 12/23/19 [History] Fluticasone Propionate [Flonase] 2 spray IH DAILY 12/23/19 [History] Fluticasone/Umeclidin/Vilanter [Trelegy Ellipta 100-62.5-25] 1 puff IH DAILY 12/23/19 [History] Tolterodine Tartrate [Detrol LA] 4 mg PO DAILY 12/23/19 [History] Triamcinolone Acetonide [Kenalog 0.1% Crm] 1 dose TOP BID 12/23/19 [History] atorvaSTATin [Lipitor] 40 mg PO BEDTIME 12/23/19 [History] predniSONE 10 mg PO DAILY 12/23/19 [History] Past Medical History HEENT History: Reports: Cataract Cardiovascular History: Reports: Heart Failure, Hypertension Other Cardiovascular History: PAD Respiratory History: Reports: Bronchitis, Recurrent, COPD, Other (See Below) Other Respiratory History: Plural plaque Gastrointestinal History: Reports: GERD Genitourinary History: Reports: Urinary Incontinence [employer] History: Reports: Musculoskeletal History: Reports: Back Pain, Chronic Endocrine/Metabolic History: Reports: Diabetes, Type II Dermatologic History: Reports: Psoriasis - Past Surgical History HEENT Surgical History: Reports: Cataract Surgery Social & Family History - Tobacco Use Smoking Status *Q: Never Smoker - Caffeine Use Caffeine Use: Reports: Soda H&P Review of Systems - Review of Systems: Review Of Systems: See Below General: Reports: Fever, Chills, Weakness, Fatigue HEENT: Reports: No Symptoms Pulmonary: Reports: Shortness of Breath, Cough. Denies: Wheezing, Pleuritic Chest Pain, Sputum, Hemoptysis Cardiovascular: Reports: Dyspnea on Exertion. Denies: Chest Pain, Palpitations, Orthopnea, PND, Edema, Lightheadedness Gastrointestinal: Reports: Decreased Appetite, Nausea, Vomiting. Denies: Abdominal Pain, Constipation, Diarrhea, Difficulty Swallowing, Distension, Hematemesis, Hematochezia, Melena Genitourinary: Reports: No Symptoms Musculoskeletal: Reports: No Symptoms Skin: Reports: No Symptoms Psychiatric: Reports: No Symptoms Neurological: Reports: No Symptoms Hematologic/Lymphatic: Reports: No Symptoms Immunologic: Reports: No Symptoms Exam - Exam Exam: See Below - Vital Signs Vital Signs: Last Vital Signs Temp 99.7 F 12/23/19 11:27 Pulse 98 12/23/19 11:27 Resp 18 12/23/19 11:27 BP 116/52 L 12/23/19 11:27 Pulse Ox 92 L 12/23/19 11:27 Weight: 169 lb - Exam Quality Assessment: Supplemental Oxygen, DVT Prophylaxis General: Alert, Oriented, Cooperative, Mild Distress HEENT: Conjunctiva Clear, Hearing Intact, Mucosa Moist & Hull, Normal Nasal Septum, Posterior Pharynx Clear, Pupils Equal Neck: Supple, Trachea Midline, +2 Carotid Pulse wo Bruit Lungs: Decreased Breath Sounds. No: Rales, Rhonchi, Rub, Wheezing Cardiovascular: Regular Rate, Regular Rhythm, Normal S1, Normal S2. No: Systolic Murmur, Diastolic Murmur GI/Abdominal Exam: Soft, Non-Tender, No Organomegaly, No Distention Back Exam: Normal Inspection, Full Range of Motion Extremities: Non-Tender, No Pedal Edema Skin: Warm, Dry, Intact Neurological: Cranial Nerves Intact, Strength Equal Bilateral, Normal Speech, Normal Tone, Sensation Intact. No: Focal Deficit Neuro Extensive - Mental Status: Alert, Oriented x3, Normal Mood/Affect, Normal Cognition, Memory Intact - Patient Data Lab Results Last 24 hrs: Laboratory Results - last 24 hr 12/23/19 12/23/19 12/23/19 Range/Units 11:23 11:23 11:43 WBC 21.4 H (4.5-11.0) K/uL RBC 4.38 (3.30-5.50) M/uL Hgb 12.1 D (12.0-15.0) g/dL Hct 39.6 (36.0-48.0) % MCV 90 (80-98) fL MCH 28 (27-31) pg MCHC 31 L (32-36) % Plt Count 290 (150-400) K/uL Neut % (Auto) 87 H (36-66) % Lymph % (Auto) 5 L (24-44) % Howell % (Auto) 8 H (2-6) % Eos % (Auto) 0 L (2-4) % Baso % (Auto) 0 (0-1) % Puncture Site Lt brachial ABG pH 7.406 (7.350-7.450) ABG pCO2 41.5 (35.0-42.0) mmHg ABG pO2 63.4 L (75.0-100.0) mmHg ABG HCO3 25.5 (22.0-26.0) mmol/L ABG Total CO2 23.0 (21.0-25.0) mmol/L ABG O2 Saturation 91.3 L (95.0-98.0) % ABG O2 Content 15.6 (15.0-23.0) %vol ABG Base Excess 1.2 mm/L ABG Hemoglobin 12.4 (12.0-16.0) g/dL ABG Oxyhemoglobin 89.5 % ABG Carboxyhemoglobin 1.4 (0.0-1.6) % ABG Methemoglobin 0.6 % Emeterio Test Not performed O2 Delivery Device Nasal cannula Oxygen Flow Rate 4.0 L Sodium (140-148) mmol/L Potassium (3.6-5.2) mmol/L Chloride (100-108) mmol/L Carbon Dioxide (21-32) mmol/L Anion Gap (5.0-14.0) mmol/L BUN (7-18) mg/dL Creatinine (0.6-1.0) mg/dL Est Cr Clr Drug Dosing mL/min Estimated GFR (MDRD) (>60) Glucose (74-106) mg/dL Lactic Acid (0.4-2.0) mmol/L Calcium (8.5-10.1) mg/dL Total Bilirubin (0.2-1.0) mg/dL AST (15-37) U/L ALT (12-78) U/L Alkaline Phosphatase (46-116) U/L Lactate Dehydrogenase 219 (82-234) U/L NT-Pro-B Natriuret Pep (5-450) pg/mL Total Protein (6.4-8.2) g/dL Albumin (3.4-5.0) g/dL Globulin (2.3-3.5) g/dL Albumin/Globulin Ratio (1.2-2.2) Urine Color (YELLOW) Urine Appearance (CLEAR) Urine pH (5.0-8.0) Ur Specific [place] (1.008-1.030) Urine Protein (NEGATIVE) mg/dL Urine Glucose (UA) (NEGATIVE) mg/dL Urine Ketones (NEGATIVE) mg/dL Urine Occult Blood (NEGATIVE) Urine Nitrite (NEGATIVE) Urine Bilirubin (NEGATIVE) Urine Urobilinogen (0.2-1.0) EU/dL Ur Leukocyte Esterase (NEGATIVE) Urine RBC (0-5) Urine WBC (0-5) Ur Epithelial Cells Amorphous Sediment Urine Bacteria Urine Mucus SARS Virus RNA (PCR) (NEGATIVE) 12/23/19 12/23/19 12/23/19 Range/Units 11:46 12:49 12:52 WBC (4.5-11.0) K/uL RBC (3.30-5.50) M/uL Hgb (12.0-15.0) g/dL Hct (36.0-48.0) % MCV (80-98) fL MCH (27-31) pg MCHC (32-36) % Plt Count (150-400) K/uL Neut % (Auto) (36-66) % Lymph % (Auto) (24-44) % Howell % (Auto) (2-6) % Eos % (Auto) (2-4) % Baso % (Auto) (0-1) % Puncture Site ABG pH (7.350-7.450) ABG pCO2 (35.0-42.0) mmHg ABG pO2 (75.0-100.0) mmHg ABG HCO3 (22.0-26.0) mmol/L ABG Total CO2 (21.0-25.0) mmol/L ABG O2 Saturation (95.0-98.0) % ABG O2 Content (15.0-23.0) %vol ABG Base Excess mm/L ABG Hemoglobin (12.0-16.0) g/dL ABG Oxyhemoglobin % ABG Carboxyhemoglobin (0.0-1.6) % ABG Methemoglobin % Emeterio Test O2 Delivery Device Oxygen Flow Rate L Sodium 135 L (140-148) mmol/L Potassium 4.5 (3.6-5.2) mmol/L Chloride 101 (100-108) mmol/L Carbon Dioxide 27 (21-32) mmol/L Anion Gap 11.5 (5.0-14.0) mmol/L BUN 13 (7-18) mg/dL Creatinine 0.9 (0.6-1.0) mg/dL Est Cr Clr Drug Dosing 47.85 mL/min Estimated GFR (MDRD) > 60 (>60) Glucose 180 H (74-106) mg/dL Lactic Acid 2.4 H (0.4-2.0) mmol/L Calcium 8.7 (8.5-10.1) mg/dL Total Bilirubin 0.5 (0.2-1.0) mg/dL AST 19 (15-37) U/L ALT 16 (12-78) U/L Alkaline Phosphatase 78 (46-116) U/L Lactate Dehydrogenase (82-234) U/L NT-Pro-B Natriuret Pep (5-450) pg/mL Total Protein 6.8 (6.4-8.2) g/dL Albumin 3.1 L (3.4-5.0) g/dL Globulin 3.7 H (2.3-3.5) g/dL Albumin/Globulin Ratio 0.8 L (1.2-2.2) Urine Color (YELLOW) Urine Appearance (CLEAR) Urine pH (5.0-8.0) Ur Specific [place] (1.008-1.030) Urine Protein (NEGATIVE) mg/dL Urine Glucose (UA) (NEGATIVE) mg/dL Urine Ketones (NEGATIVE) mg/dL Urine Occult Blood (NEGATIVE) Urine Nitrite (NEGATIVE) Urine Bilirubin (NEGATIVE) Urine Urobilinogen (0.2-1.0) EU/dL Ur Leukocyte Esterase (NEGATIVE) Urine RBC (0-5) Urine WBC (0-5) Ur Epithelial Cells Amorphous Sediment Urine Bacteria Urine Mucus SARS Virus RNA (PCR) Negative (NEGATIVE) 12/23/19 12/23/19 Range/Units 13:16 14:20 WBC (4.5-11.0) K/uL RBC (3.30-5.50) M/uL Hgb (12.0-15.0) g/dL Hct (36.0-48.0) % MCV (80-98) fL MCH (27-31) pg MCHC (32-36) % Plt Count (150-400) K/uL Neut % (Auto) (36-66) % Lymph % (Auto) (24-44) % Howell % (Auto) (2-6) % Eos % (Auto) (2-4) % Baso % (Auto) (0-1) % Puncture Site ABG pH (7.350-7.450) ABG pCO2 (35.0-42.0) mmHg ABG pO2 (75.0-100.0) mmHg ABG HCO3 (22.0-26.0) mmol/L ABG Total CO2 (21.0-25.0) mmol/L ABG O2 Saturation (95.0-98.0) % ABG O2 Content (15.0-23.0) %vol ABG Base Excess mm/L ABG Hemoglobin (12.0-16.0) g/dL ABG Oxyhemoglobin % ABG Carboxyhemoglobin (0.0-1.6) % ABG Methemoglobin % Emeterio Test O2 Delivery Device Oxygen Flow Rate L Sodium (140-148) mmol/L Potassium (3.6-5.2) mmol/L Chloride (100-108) mmol/L Carbon Dioxide (21-32) mmol/L Anion Gap (5.0-14.0) mmol/L BUN (7-18) mg/dL Creatinine (0.6-1.0) mg/dL Est Cr Clr Drug Dosing mL/min Estimated GFR (MDRD) (>60) Glucose (74-106) mg/dL Lactic Acid (0.4-2.0) mmol/L Calcium (8.5-10.1) mg/dL Total Bilirubin (0.2-1.0) mg/dL AST (15-37) U/L ALT (12-78) U/L Alkaline Phosphatase (46-116) U/L Lactate Dehydrogenase (82-234) U/L NT-Pro-B Natriuret Pep 558 H (5-450) pg/mL Total Protein (6.4-8.2) g/dL Albumin (3.4-5.0) g/dL Globulin (2.3-3.5) g/dL Albumin/Globulin Ratio (1.2-2.2) Urine Color Yellow (YELLOW) Urine Appearance Slightly cloudy A (CLEAR) Urine pH 5.0 (5.0-8.0) Ur Specific [place] 1.025 (1.008-1.030) Urine Protein 30 H (NEGATIVE) mg/dL Urine Glucose (UA) Negative (NEGATIVE) mg/dL Urine Ketones Negative (NEGATIVE) mg/dL Urine Occult Blood Moderate H (NEGATIVE) Urine Nitrite Negative (NEGATIVE) Urine Bilirubin Negative (NEGATIVE) Urine Urobilinogen 0.2 (0.2-1.0) EU/dL Ur Leukocyte Esterase Trace H (NEGATIVE) Urine RBC 5-10 H (0-5) Urine WBC 0-5 (0-5) Ur Epithelial Cells Rare Amorphous Sediment Rare Urine Bacteria Few Urine Mucus Few SARS Virus RNA (PCR) (NEGATIVE) Result Diagrams: 12/23/19 11:23 12/23/19 11:46 Sepsis Event Note - Evaluation Sepsis Screening Result: Possible Sepsis Risk - Focused Exam Vital Signs: Vital Signs Temp Pulse Pulse Resp BP BP Pulse Ox 12/23/19 11:27 99.7 F 98 18 116/52 L 92 L 12/23/19 11:26 100.1 F 96 20 116/52 L 92 L Date Exam was Performed: 12/23/19 Time Exam was Performed: 15:18 *Q Meaningful Use (ADM) - VTE Risk Assess *Q Each Risk Factor Represents 1 Point: Obesity ( BMI > 25 kg/m2), Serious lung disease including pneumonia, Abnormal Pulmonary Function (COPD) Total Score 1 Point Risk Factors: 3 Each Risk Factor Represents 2 Points: None Total Score 2 Point Risk Factors: 0 Each Risk Factor Represents 3 Points: Age 75 Years or Greater Total Score 3 Point Risk Factors: 3 Each Risk Factor Represents 5 Points: None Total Score 5 Point Risk Factors: 0 Venous Thromboembolism Risk Factor Score *Q: 6 Problem List Initiated/Reviewed/Updated: Yes Orders Last 24hrs: Active Orders 24 hr Category Date Time Status Patient Status Manage Transfer [TRANSFER] Routine ADT 12/23/19 14:40 Active Peripheral IV Care [RC] . DIRECTED Care 12/23/19 11:27 Active RT Aerosol Therapy [RC] ASDIRECTED Care 12/23/19 13:18 Active CULTURE BLOOD [BC] Urgent Lab 12/23/19 11:35 Received CULTURE BLOOD [BC] Urgent Lab 12/23/19 12:49 Received Doxycycline [Vibramycin] 100 mg Med 12/23/19 15:00 Ordered Sodium Chloride 0.9% [Normal Saline] 100 ml IV Q12HR Lactobacillus Rhamnosus GG [Culturelle] Med 12/23/19 15:00 Ordered 1 cap PO BID Sodium Chloride 0.9% [Normal Saline] 1,000 ml Med 12/23/19 13:30 Active IV ASDIRECTED Sodium Chloride 0.9% [Saline Flush] Med 12/23/19 11:27 Active 10 ml FLUSH ASDIRECTED PRN cefTRIAXone [Rocephin] 1 gm Med 12/23/19 15:00 Ordered Sodium Chloride 0.9% [Normal Saline] 50 ml IV Q24H Blood Culture x2 Reflex Set [OM.PC] Urgent Oth 12/23/19 12:38 Ordered Peripheral IV Insertion Adult [OM.PC] Routine Oth 12/23/19 11:27 Ordered Resuscitation Status Routine Resus Stat 12/23/19 14:43 Ordered Medication Orders Sodium Chloride (Normal Saline) 1,000 mls @ 100 mls/hr IV ASDIRECTED TETE Last Admin: 12/23/19 13:39 Dose: 100 mls/hr Documented by: PAU Doxycycline Hyclate 100 mg/ (Sodium Chloride) 100 mls @ 100 mls/hr IV Q12HR TETE Ceftriaxone Sodium 1 gm/ (Sodium Chloride) 50 mls @ 100 mls/hr IV Q24H TETE Lactobacillus Rhamnosus (Culturelle) 1 cap PO BID TETE Sodium Chloride (Saline Flush) 10 ml FLUSH ASDIRECTED PRN PRN Reason: Keep Vein Open Last Admin: 12/23/19 11:43 Dose: 10 ml Documented by: PAU Assessment/Plan Comment:: ASSESSMENT AND PLAN PNEUMONIA WITH EARLY SEPSIS-she has chronic respiratory failure secondary to COPD. Evidence of sepsis with fever and elevation in white blood cell count, she has been hemodynamically stable. She will receive IV fluids but will do this fairly carefully and not follow sepsis protocol because of her congestive heart failure. -Blood and sputum cultures pending -IV ceftriaxone and doxycycline pending culture results -IV fluids -Monitor in ICU overnight COPD-oxygen dependent, uses 4 L of oxygen per minute via nasal cannula at baseline. She reports symptoms of increased shortness of breath, currently has adequate oxygenation at 4 L. -Supplemental oxygen as needed, ABGs showed no evidence of significant CO2 retention -Consider use of noninvasive positive pressure ventilation if she develops re spiratory compromise CONGESTIVE HEART FAILURE-well compensated at the present time -Continue usual outpatient medical therapy -Monitor closely for fluid overload TYPE 2 DIABETES MELLITUS -Hold metformin -Continue usual dose of long-acting insulin -4 times daily glucometers -Moderate dose sliding scale Humalog MAINTENANCE ISSUES -DVT prophylaxis; Lovenox 40 mg subcu daily -GI prophylaxis; continue outpatient PPI therapy -Austin catheter; not indicated -Nutrition; consistent carbohydrate diet -Nicotine dependence; not required CODE STATUS-DNR/DNI ADMISSION STATUS-patient will be admitted to inpatient status, expect at least a 2 night hospital stay for evaluation and management of problems as outlined above. At the time of this admission I do not reasonably expected evaluation and management of this problem will require more than a 96 hour hospital stay. DISPOSITION-anticipate discharge to home after the hospital stay. PRIMARY CARE PROVIDER-Dr. Amador - Mortality Measure Prognosis:: Good
[2019-12-23] MEDS: cefTRIAXone 1 GM in Sodium Chloride 0.9% 50 ML IV SCH (15:10)
[2019-12-23] MEDS ORDERED: Ondansetron 4 MG/2 ML SDV IV PRN (15:14)
[2019-12-23] MEDS ORDERED: Albuterol 0.083% 2.5 MG/3 ML Neb Soln NEB PRN (15:14)
[2019-12-23] MEDS ORDERED: Polyethylene Glycol 3350 Powder 17 GM Packet PO PRN (15:14)
[2019-12-23] MEDS ORDERED: Glucose Gel 15 GM in 37.5 GM Tube PO PRN (15:14)
[2019-12-23] MEDS ORDERED: 50% Dextrose in Water 50 ML Syringe IV PRN (15:14)
[2019-12-23] MEDS ORDERED: Doxycycline 100 MG in Sodium Chloride 0.9% 100 ML IV SCH (16:00)
[2019-12-23] MEDS: Doxycycline 100 MG in Sodium Chloride 0.9% 100 ML IV SCH (16:18)
[2019-12-23] MEDS ORDERED: Insulin Glargine,Human Rec. Analog 100 Units/ML 3 ML Pen SUBCUT SCH (17:00)
[2019-12-23] MEDS: Insulin Lispro 100 Unit/ML 3 ML KwikPen SUBCUT SCH ×2 (17:13→21:14)
[2019-12-23] MEDS: Enoxaparin 40 MG/0.4 ML Syringe SUBCUT SCH (17:16)
[2019-12-23] MEDS: Lactobacillus Rhamnosus GG (Probiotic) Cap PO SCH ×3 (17:18→21:24)
[2019-12-23] MEDS: Albuterol/Ipratropium 3.0-0.5 MG/3 ML Neb Soln NEB SCH ×2 (17:19→21:25)
[2019-12-23] MEDS: Insulin Glargine,Human Rec. Analog 100 Units/ML 3 ML Pen SUBCUT SCH (21:15)
[2019-12-23] MEDS: Carvedilol 6.25 MG Tab PO SCH (21:21)
[2019-12-23] MEDS: atorvaSTATin 20 MG Tab PO SCH (21:22)
[2019-12-23] MEDS: Tolterodine 2 MG Tab PO SCH (21:24)
[2019-12-23] MEDS: Indacaterol/Glycopyrrolate 1 EA Cap.W.Dev Kit of 6 IH SCH (21:25)
[2019-12-24] MEDS: Doxycycline 100 MG in Sodium Chloride 0.9% 100 ML IV SCH ×2 (05:18→15:09)
[2019-12-24] MEDS: Magnesium Sulfate/Water 2 GM in Premix Bag 1 BAG IV SCH ×3 (06:41→18:21)
[2019-12-24] MEDS: Magnesium Oxide 400 MG Tab PO SCH ×3 (06:43→21:04)
[2019-12-24] MEDS: Pantoprazole 40 MG Tab.CR PO SCH (07:23)
[2019-12-24] MEDS: Insulin Lispro 100 Unit/ML 3 ML KwikPen SUBCUT SCH ×4 (07:25→21:09)
[2019-12-24] MEDS: Albuterol/Ipratropium 3.0-0.5 MG/3 ML Neb Soln NEB SCH ×4 (07:46→20:06)
[2019-12-24] MEDS: Mometasone Furoate Powder 220 MCG/Puff 14 Dose Inhaler INH SCH (07:47)
[2019-12-24] MEDS: Indacaterol/Glycopyrrolate 1 EA Cap.W.Dev Kit of 6 IH SCH ×2 (07:47→21:06)
--- NOTE | 2019-12-24 07:53 | PCM.PN ---
- General Info Date of Service: 12/24/19 Subjective Update: Ms. Dumont has been stable since admission yesterday, vital signs have been good and she has been afebrile. White blood cell count remains significantly elevated and she has noted persistent cough. Currently denies significant shortness of breath. Functional Status: Reports: Tolerating Diet, Urinating - Review of Systems General: Reports: Weakness, Fatigue. Denies: Fever, Chills Pulmonary: Reports: Shortness of Breath, Cough. Denies: Pleuritic Chest Pain, Sputum, Hemoptysis, Wheezing Cardiovascular: Reports: Dyspnea on Exertion. Denies: Chest Pain, Palpitations, Orthopnea, PND, Edema, Lightheadedness Gastrointestinal: Reports: No Symptoms - Patient Data Vitals - Most Recent: Last Vital Signs Temp 98.4 F 12/24/19 04:00 Pulse 84 12/24/19 06:00 Resp 20 12/24/19 06:00 BP 86/68 L 12/24/19 06:00 Pulse Ox 92 L 12/24/19 06:00 Weight - Most Recent: 169 lb I&O - Last 24 Hours: Intake & Output 12/23/19 12/24/19 12/24/19 22:59 06:59 14:59 Intake Total 330 2274 Output Total 100 725 100 Balance 230 1549 -100 Lab Results Last 24 Hours: Laboratory Results - last 24 hr 12/23/19 12/23/19 12/23/19 Range/Units 11:23 11:23 11:43 WBC 21.4 H (4.5-11.0) K/uL RBC 4.38 (3.30-5.50) M/uL Hgb 12.1 D (12.0-15.0) g/dL Hct 39.6 (36.0-48.0) % MCV 90 (80-98) fL MCH 28 (27-31) pg MCHC 31 L (32-36) % Plt Count 290 (150-400) K/uL Neut % (Auto) 87 H (36-66) % Lymph % (Auto) 5 L (24-44) % [place] % (Auto) 8 H (2-6) % Eos % (Auto) 0 L (2-4) % Baso % (Auto) 0 (0-1) % Puncture Site Lt brachial ABG pH 7.406 (7.350-7.450) ABG pCO2 41.5 (35.0-42.0) mmHg ABG pO2 63.4 L (75.0-100.0) mmHg ABG HCO3 25.5 (22.0-26.0) mmol/L ABG Total CO2 23.0 (21.0-25.0) mmol/L ABG O2 Saturation 91.3 L (95.0-98.0) % ABG O2 Content 15.6 (15.0-23.0) %vol ABG Base Excess 1.2 mm/L ABG Hemoglobin 12.4 (12.0-16.0) g/dL ABG Oxyhemoglobin 89.5 % ABG Carboxyhemoglobin 1.4 (0.0-1.6) % ABG Methemoglobin 0.6 % Emeterio Test Not performed O2 Delivery Device Nasal cannula Oxygen Flow Rate 4.0 L Sodium (140-148) mmol/L Potassium (3.6-5.2) mmol/L Chloride (100-108) mmol/L Carbon Dioxide (21-32) mmol/L Anion Gap (5.0-14.0) mmol/L BUN (7-18) mg/dL Creatinine (0.6-1.0) mg/dL Est Cr Clr Drug Dosing mL/min Estimated GFR (MDRD) (>60) Glucose (74-106) mg/dL Lactic Acid (0.4-2.0) mmol/L Calcium (8.5-10.1) mg/dL Magnesium (1.8-2.4) mg/dL Total Bilirubin (0.2-1.0) mg/dL AST (15-37) U/L ALT (12-78) U/L Alkaline Phosphatase (46-116) U/L Lactate Dehydrogenase 219 (82-234) U/L NT-Pro-B Natriuret Pep (5-450) pg/mL Total Protein (6.4-8.2) g/dL Albumin (3.4-5.0) g/dL Globulin (2.3-3.5) g/dL Albumin/Globulin Ratio (1.2-2.2) Urine Color (YELLOW) Urine Appearance (CLEAR) Urine pH (5.0-8.0) Ur Specific [place] (1.008-1.030) Urine Protein (NEGATIVE) mg/dL Urine Glucose (UA) (NEGATIVE) mg/dL Urine Ketones (NEGATIVE) mg/dL Urine Occult Blood (NEGATIVE) Urine Nitrite (NEGATIVE) Urine Bilirubin (NEGATIVE) Urine Urobilinogen (0.2-1.0) EU/dL Ur Leukocyte Esterase (NEGATIVE) Urine RBC (0-5) Urine WBC (0-5) Ur Epithelial Cells Amorphous Sediment Urine Bacteria Urine Mucus SARS Virus RNA (PCR) (NEGATIVE) 12/23/19 12/23/19 12/23/19 Range/Units 11:46 12:49 12:52 WBC (4.5-11.0) K/uL RBC (3.30-5.50) M/uL Hgb (12.0-15.0) g/dL Hct (36.0-48.0) % MCV (80-98) fL MCH (27-31) pg MCHC (32-36) % Plt Count (150-400) K/uL Neut % (Auto) (36-66) % Lymph % (Auto) (24-44) % [place] % (Auto) (2-6) % Eos % (Auto) (2-4) % Baso % (Auto) (0-1) % Puncture Site ABG pH (7.350-7.450) ABG pCO2 (35.0-42.0) mmHg ABG pO2 (75.0-100.0) mmHg ABG HCO3 (22.0-26.0) mmol/L ABG Total CO2 (21.0-25.0) mmol/L ABG O2 Saturation (95.0-98.0) % ABG O2 Content (15.0-23.0) %vol ABG Base Excess mm/L ABG Hemoglobin (12.0-16.0) g/dL ABG Oxyhemoglobin % ABG Carboxyhemoglobin (0.0-1.6) % ABG Methemoglobin % Emeterio Test O2 Delivery Device Oxygen Flow Rate L Sodium 135 L (140-148) mmol/L Potassium 4.5 (3.6-5.2) mmol/L Chloride 101 (100-108) mmol/L Carbon Dioxide 27 (21-32) mmol/L Anion Gap 11.5 (5.0-14.0) mmol/L BUN 13 (7-18) mg/dL Creatinine 0.9 (0.6-1.0) mg/dL Est Cr Clr Drug Dosing 47.85 mL/min Estimated GFR (MDRD) > 60 (>60) Glucose 180 H (74-106) mg/dL Lactic Acid 2.4 H (0.4-2.0) mmol/L Calcium 8.7 (8.5-10.1) mg/dL Magnesium (1.8-2.4) mg/dL Total Bilirubin 0.5 (0.2-1.0) mg/dL AST 19 (15-37) U/L ALT 16 (12-78) U/L Alkaline Phosphatase 78 (46-116) U/L Lactate Dehydrogenase (82-234) U/L NT-Pro-B Natriuret Pep (5-450) pg/mL Total Protein 6.8 (6.4-8.2) g/dL Albumin 3.1 L (3.4-5.0) g/dL Globulin 3.7 H (2.3-3.5) g/dL Albumin/Globulin Ratio 0.8 L (1.2-2.2) Urine Color (YELLOW) Urine Appearance (CLEAR) Urine pH (5.0-8.0) Ur Specific [place] (1.008-1.030) Urine Protein (NEGATIVE) mg/dL Urine Glucose (UA) (NEGATIVE) mg/dL Urine Ketones (NEGATIVE) mg/dL Urine Occult Blood (NEGATIVE) Urine Nitrite (NEGATIVE) Urine Bilirubin (NEGATIVE) Urine Urobilinogen (0.2-1.0) EU/dL Ur Leukocyte Esterase (NEGATIVE) Urine RBC (0-5) Urine WBC (0-5) Ur Epithelial Cells Amorphous Sediment Urine Bacteria Urine Mucus SARS Virus RNA (PCR) Negative (NEGATIVE) 12/23/19 12/23/19 12/24/19 Range/Units 13:16 14:20 05:53 WBC 24.3 H (4.5-11.0) K/uL RBC 3.77 (3.30-5.50) M/uL Hgb 10.5 L (12.0-15.0) g/dL Hct 34.6 L (36.0-48.0) % MCV 92 (80-98) fL MCH 28 (27-31) pg MCHC 30 L (32-36) % Plt Count 235 (150-400) K/uL Neut % (Auto) 80 H (36-66) % Lymph % (Auto) 7 L (24-44) % [place] % (Auto) 12 H (2-6) % Eos % (Auto) 0 L (2-4) % Baso % (Auto) 0 (0-1) % Puncture Site ABG pH (7.350-7.450) ABG pCO2 (35.0-42.0) mmHg ABG pO2 (75.0-100.0) mmHg ABG HCO3 (22.0-26.0) mmol/L ABG Total CO2 (21.0-25.0) mmol/L ABG O2 Saturation (95.0-98.0) % ABG O2 Content (15.0-23.0) %vol ABG Base Excess mm/L ABG Hemoglobin (12.0-16.0) g/dL ABG Oxyhemoglobin % ABG Carboxyhemoglobin (0.0-1.6) % ABG Methemoglobin % Emeterio Test O2 Delivery Device Oxygen Flow Rate L Sodium (140-148) mmol/L Potassium (3.6-5.2) mmol/L Chloride (100-108) mmol/L Carbon Dioxide (21-32) mmol/L Anion Gap (5.0-14.0) mmol/L BUN (7-18) mg/dL Creatinine (0.6-1.0) mg/dL Est Cr Clr Drug Dosing mL/min Estimated GFR (MDRD) (>60) Glucose (74-106) mg/dL Lactic Acid (0.4-2.0) mmol/L Calcium (8.5-10.1) mg/dL Magnesium (1.8-2.4) mg/dL Total Bilirubin (0.2-1.0) mg/dL AST (15-37) U/L ALT (12-78) U/L Alkaline Phosphatase (46-116) U/L Lactate Dehydrogenase (82-234) U/L NT-Pro-B Natriuret Pep 558 H (5-450) pg/mL Total Protein (6.4-8.2) g/dL Albumin (3.4-5.0) g/dL Globulin (2.3-3.5) g/dL Albumin/Globulin Ratio (1.2-2.2) Urine Color Yellow (YELLOW) Urine Appearance Slightly cloudy A (CLEAR) Urine pH 5.0 (5.0-8.0) Ur Specific [place] 1.025 (1.008-1.030) Urine Protein 30 H (NEGATIVE) mg/dL Urine Glucose (UA) Negative (NEGATIVE) mg/dL Urine Ketones Negative (NEGATIVE) mg/dL Urine Occult Blood Moderate H (NEGATIVE) Urine Nitrite Negative (NEGATIVE) Urine Bilirubin Negative (NEGATIVE) Urine Urobilinogen 0.2 (0.2-1.0) EU/dL Ur Leukocyte Esterase Trace H (NEGATIVE) Urine RBC 5-10 H (0-5) Urine WBC 0-5 (0-5) Ur Epithelial Cells Rare Amorphous Sediment Rare Urine Bacteria Few Urine Mucus Few SARS Virus RNA (PCR) (NEGATIVE) 12/24/19 Range/Units 05:53 WBC (4.5-11.0) K/uL RBC (3.30-5.50) M/uL Hgb (12.0-15.0) g/dL Hct (36.0-48.0) % MCV (80-98) fL MCH (27-31) pg MCHC (32-36) % Plt Count (150-400) K/uL Neut % (Auto) (36-66) % Lymph % (Auto) (24-44) % [place] % (Auto) (2-6) % Eos % (Auto) (2-4) % Baso % (Auto) (0-1) % Puncture Site ABG pH (7.350-7.450) ABG pCO2 (35.0-42.0) mmHg ABG pO2 (75.0-100.0) mmHg ABG HCO3 (22.0-26.0) mmol/L ABG Total CO2 (21.0-25.0) mmol/L ABG O2 Saturation (95.0-98.0) % ABG O2 Content (15.0-23.0) %vol ABG Base Excess mm/L ABG Hemoglobin (12.0-16.0) g/dL ABG Oxyhemoglobin % ABG Carboxyhemoglobin (0.0-1.6) % ABG Methemoglobin % Emeterio Test O2 Delivery Device Oxygen Flow Rate L Sodium 134 L (140-148) mmol/L Potassium 4.2 (3.6-5.2) mmol/L Chloride 102 (100-108) mmol/L Carbon Dioxide 28 (21-32) mmol/L Anion Gap 8.2 (5.0-14.0) mmol/L BUN 12 (7-18) mg/dL Creatinine 0.8 (0.6-1.0) mg/dL Est Cr Clr Drug Dosing 53.75 mL/min Estimated GFR (MDRD) > 60 (>60) Glucose 148 H (74-106) mg/dL Lactic Acid (0.4-2.0) mmol/L Calcium 8.3 L (8.5-10.1) mg/dL Magnesium 1.5 L (1.8-2.4) mg/dL Total Bilirubin (0.2-1.0) mg/dL AST (15-37) U/L ALT (12-78) U/L Alkaline Phosphatase (46-116) U/L Lactate Dehydrogenase (82-234) U/L NT-Pro-B Natriuret Pep (5-450) pg/mL Total Protein (6.4-8.2) g/dL Albumin (3.4-5.0) g/dL Globulin (2.3-3.5) g/dL Albumin/Globulin Ratio (1.2-2.2) Urine Color (YELLOW) Urine Appearance (CLEAR) Urine pH (5.0-8.0) Ur Specific [place] (1.008-1.030) Urine Protein (NEGATIVE) mg/dL Urine Glucose (UA) (NEGATIVE) mg/dL Urine Ketones (NEGATIVE) mg/dL Urine Occult Blood (NEGATIVE) Urine Nitrite (NEGATIVE) Urine Bilirubin (NEGATIVE) Urine Urobilinogen (0.2-1.0) EU/dL Ur Leukocyte Esterase (NEGATIVE) Urine RBC (0-5) Urine WBC (0-5) Ur Epithelial Cells Amorphous Sediment Urine Bacteria Urine Mucus SARS Virus RNA (PCR) (NEGATIVE) Elio Results Last 24 Hours: Microbiology 12/24/19 05:12 Gram Stain - Final Sputum - Expectorated Med Orders - Current: Current Medications Acetaminophen (Tylenol) 650 mg PO Q4H PRN PRN Reason: Pain (Mild 1-3)/fever Albuterol (Proventil Neb Soln) 2.5 mg NEB Q4H PRN PRN Reason: Shortness Of Breath/wheezing Albuterol/Ipratropium (Duoneb 3.0-0.5 Mg/3 Ml) 3 ml NEB QIDRT [facility] Last Admin: 12/24/19 07:46 Dose: 3 ml Documented by: Aspirin (Aspirin) 81 mg PO DAILY [facility] Atorvastatin Calcium (Lipitor) 40 mg PO BEDTIME [facility] Last Admin: 12/23/19 21:22 Dose: 40 mg Documented by: Carvedilol (Coreg) 6.25 mg PO BID [facility] Last Admin: 12/23/19 21:21 Dose: 6.25 mg Documented by: Dextrose (Glutose 15) 15 gm PO ONETIME PRN PRN Reason: Hypoglycemia Dextrose/Water (Dextrose 50% In Water) 50 ml IV ONETIME PRN PRN Reason: Hypoglycemia Enoxaparin Sodium (Lovenox) 40 mg SUBCUT Q24H [facility] Last Admin: 12/23/19 17:16 Dose: 40 mg Documented by: Fluticasone Propionate (Flonase) 0 gm BISI DAILY [facility] Glycopyrrolate/Indacaterol (Utibron Neohaler 27.5-15.6 Mcg) 0 each IH BIDRT [facility] Last Admin: 12/24/19 07:47 Dose: 1 puff Documented by: Ceftriaxone Sodium 1 gm/ (Sodium Chloride) 50 mls @ 100 mls/hr IV Q24H [facility] Last Admin: 12/23/19 15:10 Dose: 100 mls/hr Documented by: Doxycycline Hyclate 100 mg/ (Sodium Chloride) 100 mls @ 100 mls/hr IV Q12H [facility] Last Admin: 12/24/19 05:18 Dose: 100 mls/hr Documented by: Magnesium Sulfate 2 gm/ Premix 50 mls @ 25 mls/hr IV Q6H [facility] Stop: 12/24/19 20:29 Last Admin: 12/24/19 06:41 Dose: 25 mls/hr Documented by: Insulin Glargine (Lantus Solostar) 30 units SUBCUT QAM [facility] Insulin Glargine (Lantus Solostar) 15 units SUBCUT BEDTIME [facility] Last Admin: 12/23/19 21:15 Dose: 15 units Documented by: Insulin Human Lispro (Humalog) 0 unit SUBCUT QIDACANDBED [facility]; Protocol Last Admin: 12/24/19 07:25 Dose: Not Given Documented by: Lactobacillus Rhamnosus (Culturelle) 1 cap PO BID [facility] Last Admin: 12/23/19 21:24 Dose: Not Given Documented by: Losartan Potassium (Cozaar) 25 mg PO DAILY [facility] Magnesium Oxide (Magnesium Oxide) 400 mg PO BID [facility] Last Admin: 12/24/19 06:43 Dose: 400 mg Documented by: Mometasone Furoate (Asmanex 220 Mcg) 1 puff INH DAILY@0730 [facility] Last Admin: 12/24/19 07:47 Dose: 1 puff Documented by: Ondansetron HCl (Zofran) 4 mg IV Q4H PRN PRN Reason: Nausea/Vomiting Pantoprazole Sodium (Protonix) 40 mg PO ACBREAKFAST [facility] Last Admin: 12/24/19 07:23 Dose: 40 mg Documented by: Polyethylene Glycol (Miralax) 17 gm PO DAILY PRN PRN Reason: Constipation Sodium Chloride (Saline Flush) 10 ml FLUSH ASDIRECTED PRN PRN Reason: Keep Vein Open Tolterodine Tartrate (Detrol) 2 mg PO BID [facility] Last Admin: 12/23/19 21:24 Dose: 2 mg Documented by: Discontinued Medications Acetaminophen (Tylenol) 650 mg PO NOW ONE Stop: 12/23/19 12:49 Last Admin: 12/23/19 12:52 Dose: 650 mg Documented by: Albuterol/Ipratropium (Duoneb 3.0-0.5 Mg/3 Ml) 3 ml NEB ONETIME ONE Stop: 12/23/19 13:19 Sodium Chloride (Normal Saline) 1,000 mls @ 100 mls/hr IV ASDIRECTED [facility] Last Admin: 12/23/19 13:39 Dose: 100 mls/hr Documented by: Sodium Chloride (Normal Saline) 1,000 mls @ 125 mls/hr IV ASDIRECTED [facility] Sodium Chloride (Normal Saline) 1,000 mls @ 250 mls/hr IV ASDIRECTED [facility] Stop: 12/23/19 19:31 Last Admin: 12/23/19 16:11 Dose: 250 mls/hr Documented by: Sodium Chloride (Normal Saline) 1,000 mls @ 125 mls/hr IV ASDIRECTED [facility] Last Admin: 12/24/19 00:09 Dose: 125 mls/hr Documented by: Insulin Glargine (Lantus Solostar) 15 units SUBCUT QPM [facility] Last Admin: 12/23/19 19:33 Dose: Not Given Documented by: Ondansetron HCl (Zofran) 4 mg IVPUSH ONETIME ONE Stop: 12/23/19 11:27 Last Admin: 12/23/19 11:43 Dose: 4 mg Documented by: Sodium Chloride (Saline Flush) 10 ml FLUSH ASDIRECTED PRN PRN Reason: Keep Vein Open Last Admin: 12/23/19 11:43 Dose: 10 ml Documented by: - Exam Quality Assessment: Supplemental Oxygen, DVT Prophylaxis General: Alert, Oriented, Cooperative, Mild Distress Lungs: Clear to Auscultation, Normal Respiratory Effort, Decreased Breath Sounds. No: Rales, Rhonchi, Wheezing Cardiovascular: Regular Rate, Regular Rhythm, No Murmurs GI/Abdominal Exam: Soft, Non-Tender, No Organomegaly, No Distention Extremities: Non-Tender, No Pedal Edema Sepsis Event Note - Evaluation Sepsis Screening Result: Severe Sepsis Risk - Focused Exam Vital Signs: Vital Signs Temp Pulse Pulse Resp BP BP Pulse Ox 12/24/19 06:00 84 20 86/68 L 92 L 12/24/19 04:00 98.4 F 74 30 H 107/37 L 91 L 12/24/19 02:00 79 20 94/38 L 92 L 12/24/19 00:00 97.6 F 77 18 92 L 12/23/19 21:21 70 121/50 L Date Exam was Performed: 12/24/19 Time Exam was Performed: 07:49 - Problem List Review Problem List Initiated/Reviewed/Updated: Yes - My Orders Last 24 Hours: My Active Orders 12/23/19 Lunch Consistent Carbohydrate Diet [DIET] 12/23/19 14:55 cefTRIAXone [Rocephin] 1 gm Sodium Chloride 0.9% [Normal Saline] 50 ml IV Q24H 12/23/19 15:00 Lactobacillus Rhamnosus GG [Culturelle] 1 cap PO BID 12/23/19 15:14 Acetaminophen [Tylenol] 650 mg PO Q4H PRN Albuterol [Proventil Neb Soln] 2.5 mg NEB Q4H PRN Dextrose 50% in Water 50 ml IV ONETIME PRN Dextrose [Glutose 15] 15 gm PO ONETIME PRN Ondansetron [Zofran] 4 mg IV Q4H PRN Sodium Chloride 0.9% [Saline Flush] 10 ml FLUSH ASDIRECTED PRN polyethylene glycoL 3350 [MiraLAX] 17 gm PO DAILY PRN 12/23/19 15:14 Ambulate [RC] QID Cardiac Monitoring [RC] .As Directed Communication Order [RC] STAT Diabetes Education [RC] Click to Edit Height and Weight [RC] DAILY Intake and Output [RC] QSHIFT Notify Provider Vital Signs [RC] ASDIRECTED Notify Provider [RC] PRN Oxygen Therapy [RC] PRN Peripheral IV Care [RC] . DIRECTED Pulse Oximetry [RC] CONTINUOUS RT Aerosol Therapy [RC] ASDIRECTED Up With Assistance [RC] ASDIRECTED Up to Chair [RC] QID VTE/DVT Education [RC] Per Unit Routine Vital Signs [RC] Q2H Peripheral IV Insertion Adult [OM.PC] Routine 12/23/19 15:27 Resuscitation Status Routine 12/23/19 16:00 Albuterol/Ipratropium [DuoNeb 3.0-0.5 MG/3 ML] 3 ml NEB QIDRT Doxycycline [Vibramycin] 100 mg Sodium Chloride 0.9% [Normal Saline] 100 ml IV Q12H Enoxaparin [Lovenox] 40 mg SUBCUT Q24H 12/23/19 17:00 Insulin Lispro [HumaLOG] See Protocol SUBCUT QIDACANDBED 12/23/19 21:00 Indacaterol/Glycopyrrolate [Utibron Neohaler 27.5-15.6 MCG] 0 each IH BIDRT Insulin Glarg,Human.Rec.Analog [LantUS Solostar] 15 units SUBCUT BEDTIME Tolterodine [DetroL] 2 mg PO BID atorvaSTATin [Lipitor] 40 mg PO BEDTIME carvediloL [Coreg] 6.25 mg PO BID 12/24/19 05:12 CULTURE RESPIRATORY + SMEAR [RM] Stat 12/24/19 06:30 Magnesium Oxide 400 mg PO BID Magnesium Sulfate/Water [Magnesium Sulfate in Water Premix] 2 gm Premix Bag 1 bag IV Q6H 12/24/19 07:30 Mometasone Furoate [Asmanex 220 MCG] 1 puff INH DAILY@0730 Pantoprazole [ProTONIX] 40 mg PO ACBREAKFAST 12/24/19 07:48 Patient Status [ADT] Routine Convert IV to Saline Lock [OM.PC] Routine 12/24/19 09:00 Aspirin 81 mg PO DAILY Fluticasone Propionate [Flonase] 0 gm BISI DAILY Insulin Glarg,Human.Rec.Analog [LantUS Solostar] 30 units SUBCUT QAM Losartan [Cozaar] 25 mg PO DAILY 12/25/19 05:00 BASIC METABOLIC PANEL,BMP [CHEM] Timed CBC WITH AUTO DIFF [HEME] Timed MAGNESIUM [CHEM] Timed 12/25/19 07:30 GLUCOSE POC LAB TO COLLECT JPM [POC] QIDACANDBED 12/25/19 11:30 GLUCOSE POC LAB TO COLLECT JPM [POC] QIDACANDBED 12/25/19 16:30 GLUCOSE POC LAB TO COLLECT JPM [POC] QIDACANDBED 12/25/19 21:00 GLUCOSE POC LAB TO COLLECT JPM [POC] QIDACANDBED 12/26/19 07:30 GLUCOSE POC LAB TO COLLECT JPM [POC] QIDACANDBED 12/26/19 11:30 GLUCOSE POC LAB TO COLLECT JPM [POC] QIDACANDBED 12/26/19 16:30 GLUCOSE POC LAB TO COLLECT JPM [POC] QIDACANDBED 12/26/19 21:00 GLUCOSE POC LAB TO COLLECT JPM [POC] QIDACANDBED 12/27/19 07:30 GLUCOSE POC LAB TO COLLECT JPM [POC] QIDACANDBED 12/27/19 11:30 GLUCOSE POC LAB TO COLLECT JPM [POC] QIDACANDBED 12/27/19 16:30 GLUCOSE POC LAB TO COLLECT JPM [POC] QIDACANDBED 12/27/19 21:00 GLUCOSE POC LAB TO COLLECT JPM [POC] QIDACANDBED 12/28/19 07:30 GLUCOSE POC LAB TO COLLECT JPM [POC] QIDACANDBED 12/28/19 11:30 GLUCOSE POC LAB TO COLLECT JPM [POC] QIDACANDBED - Plan Plan:: ASSESSMENT AND PLAN PNEUMONIA WITH EARLY SEPSIS-she has chronic respiratory failure secondary to COPD. Stable since admission with no further evidence of sepsis. -Blood and sputum cultures pending -IV ceftriaxone and doxycycline pending culture results -Saline lock IV -Transfer to medical surgical floor COPD-oxygen dependent, uses 4 L of oxygen per minute via nasal cannula at baseline. She has remained stable from a respiratory standpoint since admission -Supplemental oxygen as needed, ABGs showed no evidence of significant CO2 retention -Consider use of noninvasive positive pressure ventilation if she develops r espiratory compromise CONGESTIVE HEART FAILURE-well compensated at the present time -Continue usual outpatient medical therapy TYPE 2 DIABETES MELLITUS -Hold metformin -Continue usual dose of long-acting insulin -4 times daily glucometers -Moderate dose sliding scale Humalog MAINTENANCE ISSUES -DVT prophylaxis; Lovenox 40 mg subcu daily -GI prophylaxis; continue outpatient PPI therapy -[place] catheter; not indicated -Nutrition; consistent carbohydrate diet -Nicotine dependence; not required CODE STATUS-DNR/DNI ADMISSION STATUS-patient will be admitted to inpatient status, expect at least a 2 night hospital stay for evaluation and management of problems as outlined above. At the time of this admission I do not reasonably expected evaluation and management of this problem will require more than a 96 hour hospital stay. DISPOSITION-anticipate discharge to home after the hospital stay. PRIMARY CARE PROVIDER-Dr. Amador
[2019-12-24] MEDS: Tolterodine 2 MG Tab PO SCH ×2 (08:24→21:04)
[2019-12-24] MEDS: Lactobacillus Rhamnosus GG (Probiotic) Cap PO SCH ×2 (08:24→21:04)
[2019-12-24] MEDS: Aspirin 81 MG Tab.Chew PO SCH (08:24)
[2019-12-24] MEDS: Fluticasone Propionate Nasal Spray 16 GM Bottle NAS SCH (08:25)
[2019-12-24] MEDS: Insulin Glargine,Human Rec. Analog 100 Units/ML 3 ML Pen SUBCUT SCH ×2 (08:28→21:07)
[2019-12-24] MEDS: Carvedilol 6.25 MG Tab PO SCH ×2 (08:34→21:04)
[2019-12-24] MEDS: Losartan 25 MG Tab PO SCH (08:35)
[2019-12-24] MEDS: cefTRIAXone 1 GM in Sodium Chloride 0.9% 50 ML IV SCH (14:15)
[2019-12-24] MEDS: Enoxaparin 40 MG/0.4 ML Syringe SUBCUT SCH (16:47)
[2019-12-24] MEDS: Acetaminophen 325 MG Tab PO PRN (19:52)
[2019-12-24] MEDS ORDERED: Morphine 2 MG/ML SYRINGE IVPUSH ONE (19:54)
[2019-12-24] MEDS ORDERED: LORazepam 2 MG/ML SDV IVPUSH PRN (20:12)
[2019-12-24] MEDS ORDERED: LORazepam 1 MG Tab PO PRN (20:13)
--- NOTE | 2019-12-24 21:02 | CRLCR ---
Indication: Shortness of breath Technique: Chest 1 view Comparison: December 23, 2019 Findings/Impression: Cardiovascular and mediastinum: Heart size and vasculature are normal in caliber and appearance. Lungs and pleural space: Ill-defined left basilar air space infiltrate is not significantly changed. Probable small left-sided pleural effusion. Unchanged oval-shaped nodular opacity in the upper left lung. Right lung and pleural space remain clear. No pneumothorax. Overall, no significant change from the prior exam. Bones and soft tissues: No acute findings. Dictated by Terry Larson MD @ 12/24/2019 8:59:31 PM Dictated by: Terry Larson MD @ 12/24/2019 20:59:50 (Electronically Signed)
[2019-12-24] MEDS: atorvaSTATin 20 MG Tab PO SCH (21:04)
--- NOTE | 2019-12-24 21:16 | PCM.SN.2 ---
- Free Text/Narrative Note: time: 1947 call from 2 [facility], reports Mrs. Wagner was having increased shortness of breath vitals signs at 1907 p-108 rr 24 B/P 140/71 O2 sat 92% on 4 liter, vital signs at 1945 p-100 rr 26 B/P 120/103 O2 sat 79% on 4 liter nursing staff are given a duo-neb. A) shortness of breath with hypoxia. severe COPD P) order IV Morphine sulphate 2mg IV now. order IV Ativan 0.5mg every 4 hours prn for acute distress order IV Ativan 1 mg po every 4 hours prn anxiety Chest x-ray one view.
[2019-12-25] MEDS: Doxycycline 100 MG in Sodium Chloride 0.9% 100 ML IV SCH (03:27)
[2019-12-25] MEDS: Fluticasone Propionate Nasal Spray 16 GM Bottle NAS SCH ×2 (04:38→08:52)
[2019-12-25] MEDS: Albuterol/Ipratropium 3.0-0.5 MG/3 ML Neb Soln NEB SCH ×2 (07:05→10:56)
[2019-12-25] MEDS: Indacaterol/Glycopyrrolate 1 EA Cap.W.Dev Kit of 6 IH SCH (07:05)
[2019-12-25] MEDS: Mometasone Furoate Powder 220 MCG/Puff 14 Dose Inhaler INH SCH (07:05)
[2019-12-25 07:07] VITALS: PULSE 92
[2019-12-25] MEDS: Acetaminophen 325 MG Tab PO PRN (07:27)
[2019-12-25] MEDS: Pantoprazole 40 MG Tab.CR PO SCH (07:33)
[2019-12-25 07:37] VITALS: BP 127/51
[2019-12-25] MEDS: Insulin Lispro 100 Unit/ML 3 ML KwikPen SUBCUT SCH (08:45)
[2019-12-25] MEDS: Magnesium Oxide 400 MG Tab PO SCH (08:52)
[2019-12-25] MEDS: Aspirin 81 MG Tab.Chew PO SCH (08:52)
[2019-12-25] MEDS: Lactobacillus Rhamnosus GG (Probiotic) Cap PO SCH (08:52)
[2019-12-25] MEDS: Tolterodine 2 MG Tab PO SCH (08:52)
[2019-12-25] MEDS: Carvedilol 6.25 MG Tab PO SCH (08:53)
[2019-12-25] MEDS: Losartan 25 MG Tab PO SCH (08:53)
[2019-12-25] MEDS: Insulin Glargine,Human Rec. Analog 100 Units/ML 3 ML Pen SUBCUT SCH (08:58)
--- NOTE | 2019-12-25 10:39 | PCM.DCSUM1 ---
Discharge Summary - Hospital Course Brief History: 79-year-old female with oxygen dependent COPD and diabetes who presented with progressive cough, shortness of breath and weakness. She was admitted for management of a left lung pneumonia with early sepsis. Diagnosis: Stroke: No - Discharge Data Discharge Date: 12/25/19 Discharge Disposition: Home, Self-Care 01 Condition: Fair - Referral to Home Health Primary Care Physician: PCP None - Discharge Diagnosis/Problem(s) (1) Pneumonia SNOMED Code(s): 873491703 ICD Code: J18.9 - PNEUMONIA, UNSPECIFIED ORGANISM Status: Acute Qualifiers: Laterality: left Lung location: lower lobe of lung (2) Sepsis SNOMED Code(s): 69236245 ICD Code: A41.9 - SEPSIS, UNSPECIFIED ORGANISM Status: Acute Qualifiers: Sepsis type: sepsis due to unspecified organism Sepsis acute organ dysfunction status: without acute organ dysfunction Qualified Code(s): A41.9 - Sepsis, unspecified organism (3) COPD exacerbation SNOMED Code(s): 144693259 ICD Code: J44.1 - CHRONIC OBSTRUCTIVE PULMONARY DISEASE W (ACUTE) EXACERBATION Status: Acute (4) Diabetes mellitus type 2 SNOMED Code(s): 17558435 ICD Code: E11.9 - TYPE 2 DIABETES MELLITUS WITHOUT COMPLICATIONS Status: Chronic - Patient Summary/Data Labs Pending at D/C: Final results of blood cultures which are negative at the time of discharge Sputum culture-growing gram-positive cocci and gram-negative rods at the time of discharge Hospital Course: Virginie presented to the emergency room with cough, shortness of breath, fever and weakness. Work-up in the emergency room suggested a left lower lobe pneumonia as well as evidence for sepsis. Cultures were obtained and she was admitted to the hospital for IV antibiotics. Initially she was on ceftriaxone and doxycycline. Over the first 24 hours her vital signs were stable. She did require 4 L of oxygen but this is her baseline amount which she also uses at home. Temperature curve improved. Symptomatically she started to feel better. White count remains significantly elevated at 24,000 but her sepsis had resolved. She was feeling well enough to go home even shortly after admission but with her high white count and pneumonia as well as her fragile COPD status she remained hospitalized for additional IV antibiotic therapy. Over the next 24 hours she had additional improvement. Symptomatically she is feeling much better. Her strength has remained relatively stable without a significant decline. She is up independently. She is on her usual amount of supplemental oxygen. She has not had any fevers. Her blood cultures are negative. Her sputum culture is growing gram-positive cocci and gram-negative rods but identification is pending. She would like to go home and since she is stable and on her usual amount of oxygen I think this is acceptable at this point. She will be on doxycycline and cefdinir. I will contact her if her culture results reveal a resistant organism. She will be discharged home in good shape with early follow-up. - Patient Instructions Diet: Diabetic Diet Activity: As Tolerated Showering/Bathing: May Shower Notify Provider of: Fever, Increased Pain Other/Special Instructions: 1. You were in the hospital for management of pneum onia involving the left lower lobe of your lung. Your condition has been improving with antibiotic therapy. I do recommend ongoing antibiotic therapy with both doxycycline and cefdinir. You should take 1 capsule of both of these medications twice daily for a total of 10 doses. Your first dose outside of the hospital will be due tonight. 2. Continue your other home medications as previously prescribed. 3. Follow up with Dr Dajuan Amador in approximately 1 week or sooner if your condition worsens after hospital discharge. - Discharge Plan *PRESCRIPTION DRUG MONITORING PROGRAM REVIEWED*: Not Applicable *COPY OF PRESCRIPTION DRUG MONITORING REPORT IN PATIENT LEIGHA: Not Applicable Prescriptions/Med Rec: Doxycycline Hyclate 100 mg PO BID #10 capsule Cefdinir [Omnicef] 300 mg PO BID #10 cap Home Medications: Home Meds Albuterol Sulfate [Proair Hfa] 2 puff IH Q4HR PRN 08/12/13 [History] Aspirin [Thelma Chewable Aspirin] 81 mg PO DAILY 08/12/13 [History] Insulin Aspart [Novolog Flexpen] 2 units SQ ASDIRECTED 08/12/13 [History] Insulin Glarg,Human.Rec.Analog [Lantus] 15 unit SUBCUT QPM 08/12/13 [History] Insulin Glarg,Human.Rec.Analog [Lantus] 30 unit SUBCUT QAM 08/12/13 [History] Ipratropium/Albuterol Sulfate [Duoneb 0.5 MG-3 MG/3 ML] 3 ml IH Q6HR PRN 08/12/13 [History] Omeprazole 20 mg PO DAILY 08/12/13 [History] metFORMIN HCl [Metformin ER Osmotic] 1,000 mg PO BID 08/12/13 [History] carvediloL [Coreg] 6.25 mg PO BID 12/20/17 [History] Acetaminophen [Tylenol] 650 mg PO Q4HR PRN 12/23/19 [History] Candesartan [Atacand] 4 mg PO DAILY 12/23/19 [History] Fluticasone Propionate [Flonase] 2 spray IH DAILY 12/23/19 [History] Fluticasone/Umeclidin/Vilanter [Trelegy Ellipta 100-62.5-25] 1 puff IH DAILY 12/23/19 [History] Tolterodine Tartrate [Detrol LA] 4 mg PO DAILY 12/23/19 [History] Triamcinolone Acetonide [Kenalog 0.1% Crm] 1 dose TOP BID 12/23/19 [History] atorvaSTATin [Lipitor] 40 mg PO BEDTIME 12/23/19 [History] predniSONE 10 mg PO DAILY 12/23/19 [History] Cefdinir [Omnicef] 300 mg PO BID #10 cap 12/25/19 [Rx] Doxycycline Hyclate 100 mg PO BID #10 capsule 12/25/19 [Rx] Oxygen Therapy Mode: Nasal Cannula Oxygen Flow Rate (L/min): 4 Patient Handouts: Cefdinir capsules, Doxycycline tablets or capsules, Community-Acquired Pneumonia, Adult Referrals: Dajuan Amador MD [Physician] - 01/01/20 1:00 pm (Please arrive 15 minutes early to register for your appointment.) - Discharge Summary/Plan Comment DC Time >30 min.: No - Patient Data Vitals - Most Recent: Last Vital Signs Temp 36.5 C 12/25/19 06:57 Pulse 92 12/25/19 08:53 Resp 18 12/25/19 06:57 BP 127/51 L 12/25/19 08:53 Pulse Ox 93 L 12/25/19 06:57 Weight - Most Recent: 76.657 kg I&O - Last 24 hours: Intake & Output 12/24/19 12/25/19 12/25/19 22:59 06:59 14:59 Intake Total 805 200 Balance 805 200 Lab Results - Last 24 hrs: Laboratory Results - last 24 hr 12/24/19 12/24/19 12/24/19 Range/Units 11:30 16:24 21:04 WBC (4.5-11.0) K/uL RBC (3.30-5.50) M/uL Hgb (12.0-15.0) g/dL Hct (36.0-48.0) % MCV (80-98) fL MCH (27-31) pg MCHC (32-36) % Plt Count (150-400) K/uL Neut % (Auto) (36-66) % Lymph % (Auto) (24-44) % [place] % (Auto) (2-6) % Eos % (Auto) (2-4) % Baso % (Auto) (0-1) % Sodium (140-148) mmol/L Potassium (3.6-5.2) mmol/L Chloride (100-108) mmol/L Carbon Dioxide (21-32) mmol/L Anion Gap (5.0-14.0) mmol/L BUN (7-18) mg/dL Creatinine (0.6-1.0) mg/dL Est Cr Clr Drug Dosing mL/min Estimated GFR (MDRD) (>60) Glucose (74-106) mg/dL POC Glucose 221 H 226 H 265 H (74-106) MG/DL Calcium (8.5-10.1) mg/dL Magnesium (1.8-2.4) mg/dL 12/25/19 12/25/19 12/25/19 Range/Units 04:10 04:10 07:30 WBC 20.3 H (4.5-11.0) K/uL RBC 3.91 (3.30-5.50) M/uL Hgb 11.1 L (12.0-15.0) g/dL Hct 35.9 L (36.0-48.0) % MCV 92 (80-98) fL MCH 28 (27-31) pg MCHC 31 L (32-36) % Plt Count 254 (150-400) K/uL Neut % (Auto) 74 H (36-66) % Lymph % (Auto) 11 L (24-44) % [place] % (Auto) 14 H (2-6) % Eos % (Auto) 1 L (2-4) % Baso % (Auto) 0 (0-1) % Sodium 139 L (140-148) mmol/L Potassium 3.6 (3.6-5.2) mmol/L Chloride 105 (100-108) mmol/L Carbon Dioxide 29 (21-32) mmol/L Anion Gap 8.6 (5.0-14.0) mmol/L BUN 13 (7-18) mg/dL Creatinine 0.9 (0.6-1.0) mg/dL Est Cr Clr Drug Dosing 47.03 mL/min Estimated GFR (MDRD) > 60 (>60) Glucose 75 (74-106) mg/dL POC Glucose 130 H (74-106) MG/DL Calcium 8.6 (8.5-10.1) mg/dL Magnesium 2.8 H D (1.8-2.4) mg/dL [id number] Results - Last 24 hrs: Microbiology 12/24/19 05:12 Gram Stain - Final Sputum - Expectorated Respiratory Culture - Preliminary 12/23/19 12:49 Aerobic Blood Culture - Preliminary Blood - Venous - Lab Draw Anaerobic Blood Culture - Preliminary NO GROWTH AFTER 1 DAY 12/23/19 11:35 Aerobic Blood Culture - Preliminary Blood - Venous NO GROWTH AFTER 1 DAY Anaerobic Blood Culture - Preliminary NO GROWTH AFTER 1 DAY Med Orders - Current: Current Medications Acetaminophen (Tylenol) 650 mg PO Q4H PRN PRN Reason: Pain (Mild 1-3)/fever Last Admin: 12/25/19 07:27 Dose: 650 mg Documented by: Albuterol (Proventil Neb Soln) 2.5 mg NEB Q4H PRN PRN Reason: Shortness Of Breath/wheezing Albuterol/Ipratropium (Duoneb 3.0-0.5 Mg/3 Ml) 3 ml NEB QIDRT [facility] Last Admin: 12/25/19 07:05 Dose: 3 ml Documented by: Aspirin (Aspirin) 81 mg PO DAILY [facility] Last Admin: 12/25/19 08:52 Dose: 81 mg Documented by: Atorvastatin Calcium (Lipitor) 40 mg PO BEDTIME [facility] Last Admin: 12/24/19 21:04 Dose: 40 mg Documented by: Carvedilol (Coreg) 6.25 mg PO BID [facility] Last Admin: 12/25/19 08:53 Dose: 6.25 mg Documented by: Dextrose (Glutose 15) 15 gm PO ONETIME PRN PRN Reason: Hypoglycemia Dextrose/Water (Dextrose 50% In Water) 50 ml IV ONETIME PRN PRN Reason: Hypoglycemia Enoxaparin Sodium (Lovenox) 40 mg SUBCUT Q24H [facility] Last Admin: 12/24/19 16:47 Dose: 40 mg Documented by: Fluticasone Propionate (Flonase) 0 gm BISI DAILY [facility] Last Admin: 12/25/19 08:52 Dose: Not Given Documented by: Glycopyrrolate/Indacaterol (Utibron Neohaler 27.5-15.6 Mcg) 0 each IH BIDRT [facility] Last Admin: 12/25/19 07:05 Dose: 1 puff Documented by: Ceftriaxone Sodium 1 gm/ (Sodium Chloride) 50 mls @ 100 mls/hr IV Q24H [facility] Last Admin: 12/24/19 14:15 Dose: 100 mls/hr Documented by: Doxycycline Hyclate 100 mg/ (Sodium Chloride) 100 mls @ 100 mls/hr IV Q12H [facility] Last Admin: 12/25/19 03:27 Dose: 100 mls/hr Documented by: Insulin Glargine (Lantus Solostar) 30 units SUBCUT QAM [facility] Last Admin: 12/25/19 08:58 Dose: 30 unit Documented by: Insulin Glargine (Lantus Solostar) 15 units SUBCUT BEDTIME [facility] Last Admin: 12/24/19 21:07 Dose: 15 units Documented by: Insulin Human Lispro (Humalog) 0 unit SUBCUT QIDACANDBED [facility]; Protocol Last Admin: 12/25/19 08:45 Dose: Not Given Documented by: Lactobacillus Rhamnosus (Culturelle) 1 cap PO BID [facility] Last Admin: 12/25/19 08:52 Dose: Not Given Documented by: Lorazepam (Ativan) 0.5 mg IVPUSH Q4H PRN PRN Reason: Anxiety Lorazepam (Ativan) 1 mg PO Q4H PRN PRN Reason: Anxiety Losartan Potassium (Cozaar) 25 mg PO DAILY [facility] Last Admin: 12/25/19 08:53 Dose: 25 mg Documented by: Magnesium Oxide (Magnesium Oxide) 400 mg PO BID [facility] Last Admin: 12/25/19 08:52 Dose: Not Given Documented by: Mometasone Furoate (Asmanex 220 Mcg) 1 puff INH DAILY@0730 [facility] Last Admin: 12/25/19 07:05 Dose: 1 puff Documented by: Ondansetron HCl (Zofran) 4 mg IV Q4H PRN PRN Reason: Nausea/Vomiting Pantoprazole Sodium (Protonix) 40 mg PO ACBREAKFAST [facility] Last Admin: 12/25/19 07:33 Dose: Not Given Documented by: Polyethylene Glycol (Miralax) 17 gm PO DAILY PRN PRN Reason: Constipation Sodium Chloride (Saline Flush) 10 ml FLUSH ASDIRECTED PRN PRN Reason: Keep Vein Open Tolterodine Tartrate (Detrol) 2 mg PO BID [facility] Last Admin: 12/25/19 08:52 Dose: 2 mg Documented by: Discontinued Medications Acetaminophen (Tylenol) 650 mg PO NOW ONE Stop: 12/23/19 12:49 Last Admin: 12/23/19 12:52 Dose: 650 mg Documented by: Albuterol/Ipratropium (Duoneb 3.0-0.5 Mg/3 Ml) 3 ml NEB ONETIME ONE Stop: 12/23/19 13:19 Sodium Chloride (Normal Saline) 1,000 mls @ 100 mls/hr IV ASDIRECTED [facility] Last Admin: 12/23/19 13:39 Dose: 100 mls/hr Documented by: Sodium Chloride (Normal Saline) 1,000 mls @ 125 mls/hr IV ASDIRECTED [facility] Sodium Chloride (Normal Saline) 1,000 mls @ 250 mls/hr IV ASDIRECTED [facility] Stop: 12/23/19 19:31 Last Admin: 12/23/19 16:11 Dose: 250 mls/hr Documented by: Sodium Chloride (Normal Saline) 1,000 mls @ 125 mls/hr IV ASDIRECTED [facility] Last Admin: 12/24/19 00:09 Dose: 125 mls/hr Documented by: Magnesium Sulfate 2 gm/ Premix 50 mls @ 25 mls/hr IV Q6H [facility] Stop: 12/24/19 20:29 Last Admin: 12/24/19 18:21 Dose: 25 mls/hr Documented by: Insulin Glargine (Lantus Solostar) 15 units SUBCUT QPM [facility] Last Admin: 12/23/19 19:33 Dose: Not Given Documented by: Morphine Sulfate (Morphine) 2 mg IVPUSH ONETIME ONE Stop: 12/24/19 19:55 Last Admin: 12/24/19 20:03 Dose: 2 mg Documented by: Ondansetron HCl (Zofran) 4 mg IVPUSH ONETIME ONE Stop: 12/23/19 11:27 Last Admin: 12/23/19 11:43 Dose: 4 mg Documented by: Sodium Chloride (Saline Flush) 10 ml FLUSH ASDIRECTED PRN PRN Reason: Keep Vein Open Last Admin: 12/23/19 11:43 Dose: 10 ml Documented by:
== END 2019-12-25 11:15 | disposition home or self-care (01) | DRG 871 ==
LOC: JP.ED 11:10 → JP.ICU 14:40 → JP.MS 12-24 09:42
PROVIDERS: ADMIT Hospitalist; ATTEND Internal Medicine
DX: J44.0 Chronic obstructive pulmonary disease with (acute) lower respiratory infection (principal); A41.9 Sepsis, unspecified organism; J18.9 Pneumonia, unspecified organism; J44.1 Chronic obstructive pulmonary disease with (acute) exacerbation; J96.11 Chronic respiratory failure with hypoxia; I73.9 Peripheral vascular disease, unspecified; E11.9 Type 2 diabetes mellitus without complications; Z66 Do not resuscitate; Z20.828 Contact with and (suspected) exposure to other viral communicable diseases; I50.9 Heart failure, unspecified; I11.0 Hypertensive heart disease with heart failure; K21.9 Gastro-esophageal reflux disease without esophagitis; R32 Unspecified urinary incontinence; G89.29 Other chronic pain; M54.9 Dorsalgia, unspecified; F41.9 Anxiety disorder, unspecified; L40.9 Psoriasis, unspecified; Z79.82 Long term (current) use of aspirin; Z79.4 Long term (current) use of insulin; Z79.899 Other long term (current) drug therapy; Z79.52 Long term (current) use of systemic steroids; Z98.49 Cataract extraction status, unspecified eye
CPT/HCPCS: 36415; 36600; 71045; 80053; 81001; 82803; 83605; 83615; 83880; 85025; 87040 ×2; 96361; 96374; 99285; A9270; J2405; J7030; U0002; 80048; 82962; 83735; 87070; 87077; 87186; 87205; 94640; J0696; J1650; J1815; J1815-GY; J2270; J3475; J3490; J7050; J7620-GY

== ENCOUNTER 2020-01-25 06:28 | Inpatient (IN) | payer MEDICARE, MEDICAID, OTHER ==
[2020-01-25] MEDS ORDERED: Albuterol/Ipratropium 3.0-0.5 MG/3 ML Neb Soln NEB ONE (07:01)
[2020-01-25] MEDS ORDERED: methylPREDNISolone Sod Succ 125 MG in Dextrose 5% in Water 100 ML IV ONE ×2 (07:01)
[2020-01-25] MEDS ORDERED: cefTRIAXone 1 GM in Sodium Chloride 0.9% 50 ML IV ONE (07:02)
--- NOTE | 2020-01-25 07:12 | EDM.PDOC ---
ED HPI GENERAL MEDICAL PROBLEM - General Stated Complaint: shortness of breath Time Seen by Provider: 01/25/20 07:05 - History of Present Illness INITIAL COMMENTS - FREE TEXT/NARRATIVE: Patient presents to the emergency department with increasing shortness of breath over the past few days. Apparently recently she was admitted to the hospital for pneumonia. She is on 4 L of oxygen at home and currently denies any mario alberto chest pains but she presents here with a fever. She has no known covert exposures and she has known significant COPD. Patient is a poor historian and cannot really give us any of her past medical history or medical lists. Aracely payne when she presents to the ER our system is down however we began treatment and blood cultures were drawn and we will swab her for COVID and start her on a presumptive pneumonia treatment. Right Wrist Pain Score (Numeric/FACES): 3 - Related Data Allergies Allergy/AdvReac Type Severity Reaction Status Date / Time No Known Allergies Allergy Verified 12/23/19 11:17 Home Meds: Home Meds Albuterol Sulfate [Proair Hfa] 2 puff IH Q4HR PRN 08/12/13 [History] Aspirin [Thelma Chewable Aspirin] 81 mg PO DAILY 08/12/13 [History] Insulin Aspart [Novolog Flexpen] 2 units SQ ASDIRECTED 08/12/13 [History] Insulin Glarg,Human.Rec.Analog [Lantus] 15 unit SUBCUT QPM 08/12/13 [History] Insulin Glarg,Human.Rec.Analog [Lantus] 30 unit SUBCUT QAM 08/12/13 [History] Ipratropium/Albuterol Sulfate [Duoneb 0.5 MG-3 MG/3 ML] 3 ml IH Q6HR PRN 08/12/13 [History] Omeprazole 20 mg PO DAILY 08/12/13 [History] metFORMIN HCl [Metformin ER Osmotic] 1,000 mg PO BID 08/12/13 [History] carvediloL [Coreg] 6.25 mg PO BID 12/20/17 [History] Acetaminophen [Tylenol] 650 mg PO Q4HR PRN 12/23/19 [History] Candesartan [Atacand] 4 mg PO DAILY 12/23/19 [History] Fluticasone Propionate [Flonase] 2 spray IH DAILY 12/23/19 [History] Fluticasone/Umeclidin/Vilanter [Trelegy Ellipta 100-62.5-25] 1 puff IH DAILY 12/23/19 [History] Tolterodine Tartrate [Detrol LA] 4 mg PO DAILY 12/23/19 [History] Triamcinolone Acetonide [Kenalog 0.1% Crm] 1 dose TOP BID 12/23/19 [History] atorvaSTATin [Lipitor] 40 mg PO BEDTIME 12/23/19 [History] predniSONE 10 mg PO DAILY 12/23/19 [History] Past Medical History HEENT History: Reports: Cataract Cardiovascular History: Reports: Heart Failure, Hypertension Other Cardiovascular History: PAD Respiratory History: Reports: Bronchitis, Recurrent, COPD, Other (See Below) Other Respiratory History: Plural plaque Gastrointestinal History: Reports: GERD Genitourinary History: Reports: Urinary Incontinence 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 ED EXAM, GENERAL - Physical Exam Exam: See Below Exam Limited By: No Limitations Ears: Normal External Exam Nose: Normal Inspection Throat/Mouth: Normal Inspection Neck: Normal Inspection Respiratory/Chest: Other (Patient is able to talk in almost full sentences but is obviously short of breath, she is moving good air and has an elevated respiratory rate and diminished breath sounds throughout. No obvious crackles or wheezes.) Cardiovascular: Normal Peripheral Pulses, Regular Rate, Rhythm GI/Abdominal: Normal Bowel Sounds Back Exam: Normal Inspection Extremities: Normal Inspection, No Pedal Edema Neurological: Alert, Oriented Skin Exam: Warm, Dry Course - Vital Signs Text/Narrative:: Patient had an IV placed and was placed on EKG continuous monitoring pulse oximetry and her oxygen saturations were around 88 on 4 L. She was given a neb as well as some Solu-Medrol IV and some IV Rocephin and we did swab her for COVID. Our plan will be to admit her to the hospital for her shortness of breath, at this time ABGs are pending. X-ray show some left lower lobe infiltrate versus scarring in my opinion, this is been seen previously on x-ray, COVID swabs not back yet in urinary results do not reveal any signs of UTI. Patient began fluid bolus per sepsis protocol. Last Recorded V/S: Last Vital Signs Temp 98.6 F 01/25/20 09:26 Pulse 94 01/25/20 09:26 Resp 18 01/25/20 09:26 BP 133/61 01/25/20 09:26 Pulse Ox 93 L 01/25/20 09:26 - Orders/Labs/Meds Orders: Active Orders 24 hr Category Date Time Status RT Aerosol Therapy [RC] ASDIRECTED Care 01/25/20 07:01 Active CULTURE BLOOD [BC] Routine Lab 01/25/20 07:22 Received CULTURE BLOOD [BC] Routine Lab 01/25/20 07:22 Received CULTURE URINE [RM] Urgent Lab 01/25/20 08:11 Received Labs: Laboratory Tests 01/25/20 01/25/20 01/25/20 Range/Units 07:22 07:22 07:22 WBC 34.2 H* (4.5-11.0) K/uL RBC 4.49 (3.30-5.50) M/uL Hgb 12.6 (12.0-15.0) g/dL Hct 40.9 (36.0-48.0) % MCV 91 (80-98) fL MCH 28 (27-31) pg MCHC 31 L (32-36) % Plt Count 243 (150-400) K/uL Puncture Site Lt radial ABG pH 7.425 (7.350-7.450) ABG pCO2 41.8 (35.0-42.0) mmHg ABG pO2 57.7 L (75.0-100.0) mmHg ABG HCO3 26.9 H (22.0-26.0) mmol/L ABG Total CO2 24.1 (21.0-25.0) mmol/L ABG O2 Saturation 89.0 L (95.0-98.0) % ABG O2 Content 15.3 (15.0-23.0) %vol ABG Base Excess 2.7 mm/L ABG Hemoglobin 12.5 (12.0-16.0) g/dL ABG Oxyhemoglobin 86.9 % ABG Carboxyhemoglobin 1.5 (0.0-1.6) % ABG Methemoglobin 0.9 % Emeterio Test Passed O2 Delivery Device Nasal cannula Oxygen Flow Rate 4.0 L Sodium 135 L (140-148) mmol/L Potassium 4.4 (3.6-5.2) mmol/L Chloride 99 L (100-108) mmol/L Carbon Dioxide 28 (21-32) mmol/L Anion Gap 12.4 (5.0-14.0) mmol/L BUN 15 (7-18) mg/dL Creatinine 1.0 (0.6-1.0) mg/dL Est Cr Clr Drug Dosing 42.39 mL/min Estimated GFR (MDRD) 54 L (>60) Glucose 388 H (74-106) mg/dL Lactic Acid (0.4-2.0) mmol/L Calcium 9.0 (8.5-10.1) mg/dL Troponin I 0.022 (0.000-0.056) ng/mL NT-Pro-B Natriuret Pep 432 (5-450) pg/mL Urine Color (YELLOW) Urine Appearance (CLEAR) Urine pH (5.0-8.0) Ur Specific [place] (1.008-1.030) Urine Protein (NEGATIVE) mg/dL Urine Glucose (UA) (NEGATIVE) mg/dL Urine Ketones (NEGATIVE) mg/dL Urine Occult Blood (NEGATIVE) Urine Nitrite (NEGATIVE) Urine Bilirubin (NEGATIVE) Urine Urobilinogen (0.2-1.0) EU/dL Ur Leukocyte Esterase (NEGATIVE) Urine RBC (0-5) Urine WBC (0-5) Ur Epithelial Cells Amorphous Sediment Urine Bacteria Urine Mucus SARS Virus RNA (PCR) (NEGATIVE) 01/25/20 01/25/20 01/25/20 Range/Units 07:22 08:10 08:17 WBC (4.5-11.0) K/uL RBC (3.30-5.50) M/uL Hgb (12.0-15.0) g/dL Hct (36.0-48.0) % MCV (80-98) fL MCH (27-31) pg MCHC (32-36) % Plt Count (150-400) K/uL Puncture Site ABG pH (7.350-7.450) ABG pCO2 (35.0-42.0) mmHg ABG pO2 (75.0-100.0) mmHg ABG HCO3 (22.0-26.0) mmol/L ABG Total CO2 (21.0-25.0) mmol/L ABG O2 Saturation (95.0-98.0) % ABG O2 Content (15.0-23.0) %vol ABG Base Excess mm/L ABG Hemoglobin (12.0-16.0) g/dL ABG Oxyhemoglobin % ABG Carboxyhemoglobin (0.0-1.6) % ABG Methemoglobin % Emeterio Test O2 Delivery Device Oxygen Flow Rate L Sodium (140-148) mmol/L Potassium (3.6-5.2) mmol/L Chloride (100-108) mmol/L Carbon Dioxide (21-32) mmol/L Anion Gap (5.0-14.0) mmol/L BUN (7-18) mg/dL Creatinine (0.6-1.0) mg/dL Est Cr Clr Drug Dosing mL/min Estimated GFR (MDRD) (>60) Glucose (74-106) mg/dL Lactic Acid 1.5 (0.4-2.0) mmol/L Calcium (8.5-10.1) mg/dL Troponin I (0.000-0.056) ng/mL NT-Pro-B Natriuret Pep (5-450) pg/mL Urine Color Yellow (YELLOW) Urine Appearance Slightly cloudy A (CLEAR) Urine pH 6.5 (5.0-8.0) Ur Specific [place] 1.020 (1.008-1.030) Urine Protein Trace H (NEGATIVE) mg/dL Urine Glucose (UA) 500 H (NEGATIVE) mg/dL Urine Ketones 40 H (NEGATIVE) mg/dL Urine Occult Blood Moderate H (NEGATIVE) Urine Nitrite Negative (NEGATIVE) Urine Bilirubin Negative (NEGATIVE) Urine Urobilinogen 0.2 (0.2-1.0) EU/dL Ur Leukocyte Esterase Negative (NEGATIVE) Urine RBC 20-30 H (0-5) Urine WBC 0-5 (0-5) Ur Epithelial Cells Rare Amorphous Sediment Not seen Urine Bacteria Not seen Urine Mucus Not seen SARS Virus RNA (PCR) Negative (NEGATIVE) Meds: Medications Discontinued Medications Generic Name Dose Route Start Last Admin Trade Name Freq PRN Reason Stop Dose Admin Albuterol/Ipratropium 3 ml 01/25/20 07:01 01/25/20 07:14 Duoneb 3.0-0.5 Mg/3 Ml NEB 01/25/20 07:02 3 ml ONETIME ONE Administration Ceftriaxone Sodium 1 gm/ 50 mls @ 100 mls/hr 01/25/20 07:02 01/25/20 07:18 Sodium Chloride IV 01/25/20 07:31 100 mls/hr ONETIME ONE Administration Sodium Chloride 1,000 mls @ 1,000 mls/hr 01/25/20 07:48 01/25/20 08:10 Normal Saline IV 01/25/20 08:47 1,000 mls/hr .BOLUS ONE Administration Methylprednisolone Sodium Succinate 125 mg 01/25/20 07:15 01/25/20 07:14 Solu-Medrol IVPUSH 01/25/20 07:16 125 mg ONETIME ONE Administration Departure - Departure Time of Disposition: 09:42 Disposition: Admitted As Inpatient 68 Condition: Fair Clinical Impression: COPD exacerbation, Hypoxemia - Discharge Information Referrals: PCP,None [Primary Care Provider] - Sepsis Event Note (ED) - Focused Exam Vital Signs: Vital Signs Temp Pulse Resp BP Pulse Ox 01/25/20 09:26 98.6 F 94 18 133/61 93 L 01/25/20 08:08 110 H 111/72 90 L 01/25/20 07:39 114 H 21 H 105/52 L 87 L 01/25/20 07:32 101 F H 125 H 24 H 102/56 L 93 L 01/25/20 07:00 101 F H 125 H 24 H 102/56 L 93 L - My Orders Last 24 Hours: My Active Orders 01/25/20 07:01 RT Aerosol Therapy [RC] ASDIRECTED 01/25/20 07:22 CULTURE BLOOD [BC] Routine CULTURE BLOOD [BC] Routine 01/25/20 08:11 CULTURE URINE [RM] Urgent - Assessment/Plan Last 24 Hours: My Active Orders 01/25/20 07:01 RT Aerosol Therapy [RC] ASDIRECTED 01/25/20 07:22 CULTURE BLOOD [BC] Routine CULTURE BLOOD [BC] Routine 01/25/20 08:11 CULTURE URINE [RM] Urgent
[2020-01-25] MEDS ORDERED: methylPREDNISolone Sodium Succinate 125 MG/2 ML SDV IVPUSH ONE (07:15)
[2020-01-25] MEDS ORDERED: Sodium Chloride 0.9% 1,000 ML IV ONE (07:48)
--- NOTE | 2020-01-25 09:09 | CR ---
CHEST: 2 view CLINICAL HISTORY:SOB COMPARISON:12/24/2019 FINDINGS: There is blunting of left costophrenic angle. There is patchy density in the left lower lung field. This is also seen on 12/24/2019. There is diffuse calcified plaque bilaterally. Heart size and pulmonary vascularity are normal. There are atherosclerotic changes in the aorta. Impression: Patchy left lower lobe density. Some of this was present on prior study in December. There is persistent blunting of the left costophrenic angle. This may be due to pleural effusion or chronic pleural disease. Patient has diffuse calcified pleural plaques consistent with previous is asbestos exposure. Though many these findings are chronic, a superimposed acute left lower lobe pneumonic infiltrate is not excluded.
[2020-01-25] MEDS ORDERED: Levofloxacin/Dextrose 5%-Water 750 MG in Premix Bag 1 BAG IV SCH (10:30)
--- NOTE | 2020-01-25 10:31 | PCM.HP.2 ---
H&P History of Present Illness - General Date of Service: 01/25/20 Admit Problem/Dx: Admission Diagnosis/Problem Admission Diagnosis/Problem Acute bronchitis Source of Information: Patient, Provider History Limitations: Reports: No Limitations - History of Present Illness Initial Comments - Free Text/Narative: CC: I was short of breath HPI: Virginie presents to the emergency room today with 2 days of progressive shortness of breath as well as cough and sputum production. She is short of breath with even minimal activity at this point but has been able to carry out her activities of daily living. Sputum has been green and brown in color. She has been coughing frequently. She does not think she is been having any fevers and has not had any chills. She feels a little fatigued compared to baseline. She is not sure if she has been wheezing and has not noticed any. No change in bowel or bladder habits. No sick contacts. No medication changes. No travel. No complaints of chest pain or abdominal pain. She was in the hospital about 1 month ago for management of pneumonia and felt well up until just several days ago. Most recent steroids were about 2 weeks ago. She has not had antibiotics for a month. Blood sugars have been running high the past 24 hours. Work-up in the emergency room revealed evidence for acute bronchitis with an exacerbation of COPD and poor air movement. She was slightly tachycardic but this has improved fairly quickly. No impressive evidence for pneumonia on chest x-ray. White count is quite elevated at 34,000 but recently her white blood cell count has been running 20,000 or higher. With her COPD exacerbation and dyspnea with any exertion on top of a baseline of severe COPD with oxygen dependence at 4 L she will be admitted for further management. Right Wrist Pain Score (Numeric/FACES): 3 - Related Data Allergies/Adverse Reactions: Allergies Allergy/AdvReac Type Severity Reaction Status Date / Time No Known Allergies Allergy Verified 12/23/19 11:17 Home Medications: Home Meds Albuterol Sulfate [Proair Hfa] 2 puff IH Q4HR PRN 08/12/13 [History] Aspirin [Thelma Chewable Aspirin] 81 mg PO DAILY 08/12/13 [History] Insulin Aspart [Novolog Flexpen] 2 units SQ ASDIRECTED 08/12/13 [History] Insulin Glarg,Human.Rec.Analog [Lantus] 15 unit SUBCUT QPM 08/12/13 [History] Insulin Glarg,Human.Rec.Analog [Lantus] 30 unit SUBCUT QAM 08/12/13 [History] Ipratropium/Albuterol Sulfate [Duoneb 0.5 MG-3 MG/3 ML] 3 ml IH Q6HR PRN 08/12/13 [History] Omeprazole 20 mg PO DAILY 08/12/13 [History] metFORMIN HCl [Metformin ER Osmotic] 1,000 mg PO BID 08/12/13 [History] carvediloL [Coreg] 6.25 mg PO BID 12/20/17 [History] Acetaminophen [Tylenol] 650 mg PO Q4HR PRN 12/23/19 [History] Candesartan [Atacand] 4 mg PO DAILY 12/23/19 [History] Fluticasone Propionate [Flonase] 2 spray IH DAILY 12/23/19 [History] Fluticasone/Umeclidin/Vilanter [Trelegy Ellipta 100-62.5-25] 1 puff IH DAILY 12/23/19 [History] Tolterodine Tartrate [Detrol LA] 4 mg PO DAILY 12/23/19 [History] Triamcinolone Acetonide [Kenalog 0.1% Crm] 1 dose TOP BID 12/23/19 [History] atorvaSTATin [Lipitor] 40 mg PO BEDTIME 12/23/19 [History] predniSONE 10 mg PO DAILY 12/23/19 [History] Past Medical History HEENT History: Reports: Cataract Cardiovascular History: Reports: Heart Failure, Hypertension Other Cardiovascular History: PAD Respiratory History: Reports: Bronchitis, Recurrent, COPD, Other (See Below) Other Respiratory History: Plural plaque Gastrointestinal History: Reports: GERD Genitourinary History: Reports: Urinary Incontinence [employer] History: Reports: Musculoskeletal History: Reports: Back Pain, Chronic Endocrine/Metabolic History: Reports: Diabetes, Type II Dermatologic History: Reports: Psoriasis - Infectious Disease History Infectious Disease History: Reports: Chicken Pox, Measles, Mumps - Past Surgical History HEENT Surgical History: Reports: Cataract Surgery Social & Family History - Family History Endocrine/Metabolic: Reports: Diabetes, type II - Tobacco Use Smoking Status *Q: Former Smoker Years of Tobacco use: 50 Packs/Tins Daily: 1 Used Tobacco, but Quit: Yes Month/Year Tobacco Last Used: 2004 Second Hand Smoke Exposure: No - Caffeine Use Caffeine Use: Reports: Soda - Recreational Drug Use Recreational Drug Use: No H&P Review of Systems - Review of Systems: Review Of Systems: See Below Free Text/Narrative: A complete 12 point review of systems was obtained. Pertinent positives and negatives are noted in the history of present illness. All other systems were reviewed and were negative except as noted. Exam - Exam Exam: See Below - Vital Signs Vital Signs: Last Vital Signs Temp 37.0 C 01/25/20 09:26 Pulse 94 01/25/20 09:26 Resp 18 01/25/20 09:26 BP 133/61 01/25/20 09:26 Pulse Ox 93 L 01/25/20 09:26 Weight: 75.296 kg - Exam Quality Assessment: Supplemental Oxygen General: Alert, Oriented, Cooperative. No: Mild Distress HEENT: Conjunctiva Clear, Mucosa Moist & [place]. No: Scleral Icterus Neck: Supple, Trachea Midline Lungs: Decreased Breath Sounds (poor air movement ). No: Normal Respiratory Effort (increased work of breathing ), Rhonchi, Wheezing Cardiovascular: Regular Rate, Regular Rhythm. No: Systolic Murmur GI/Abdominal Exam: Soft, Non-Tender, No Distention Back Exam: Normal Inspection. No: Muscle Spasm Extremities: No Pedal Edema. No: Increased Warmth Peripheral Pulses: 1+: Dorsalis Pedis (L), Dorsalis Pedis (R) Skin: Warm, Dry Neuro Extensive - Mental Status: Alert, Oriented x3, Nl Response to Commands Neuro Extensive - Motor, Sensory, Reflexes: No: Dysarthria, Abnormal Motor, Tremor Psychiatric: Alert, Normal Affect - Patient Data Lab Results Last 24 hrs: Laboratory Results - last 24 hr 01/25/20 01/25/20 01/25/20 Range/Units 07:22 07:22 07:22 WBC 34.2 H* (4.5-11.0) K/uL RBC 4.49 (3.30-5.50) M/uL Hgb 12.6 (12.0-15.0) g/dL Hct 40.9 (36.0-48.0) % MCV 91 (80-98) fL MCH 28 (27-31) pg MCHC 31 L (32-36) % Plt Count 243 (150-400) K/uL Puncture Site Lt radial ABG pH 7.425 (7.350-7.450) ABG pCO2 41.8 (35.0-42.0) mmHg ABG pO2 57.7 L (75.0-100.0) mmHg ABG HCO3 26.9 H (22.0-26.0) mmol/L ABG Total CO2 24.1 (21.0-25.0) mmol/L ABG O2 Saturation 89.0 L (95.0-98.0) % ABG O2 Content 15.3 (15.0-23.0) %vol ABG Base Excess 2.7 mm/L ABG Hemoglobin 12.5 (12.0-16.0) g/dL ABG Oxyhemoglobin 86.9 % ABG Carboxyhemoglobin 1.5 (0.0-1.6) % ABG Methemoglobin 0.9 % Emeterio Test Passed O2 Delivery Device Nasal cannula Oxygen Flow Rate 4.0 L Sodium 135 L (140-148) mmol/L Potassium 4.4 (3.6-5.2) mmol/L Chloride 99 L (100-108) mmol/L Carbon Dioxide 28 (21-32) mmol/L Anion Gap 12.4 (5.0-14.0) mmol/L BUN 15 (7-18) mg/dL Creatinine 1.0 (0.6-1.0) mg/dL Est Cr Clr Drug Dosing 42.39 mL/min Estimated GFR (MDRD) 54 L (>60) Glucose 388 H (74-106) mg/dL Lactic Acid (0.4-2.0) mmol/L Calcium 9.0 (8.5-10.1) mg/dL Troponin I 0.022 (0.000-0.056) ng/mL NT-Pro-B Natriuret Pep 432 (5-450) pg/mL Urine Color (YELLOW) Urine Appearance (CLEAR) Urine pH (5.0-8.0) Ur Specific [place] (1.008-1.030) Urine Protein (NEGATIVE) mg/dL Urine Glucose (UA) (NEGATIVE) mg/dL Urine Ketones (NEGATIVE) mg/dL Urine Occult Blood (NEGATIVE) Urine Nitrite (NEGATIVE) Urine Bilirubin (NEGATIVE) Urine Urobilinogen (0.2-1.0) EU/dL Ur Leukocyte Esterase (NEGATIVE) Urine RBC (0-5) Urine WBC (0-5) Ur Epithelial Cells Amorphous Sediment Urine Bacteria Urine Mucus SARS Virus RNA (PCR) (NEGATIVE) 01/25/20 01/25/20 01/25/20 Range/Units 07:22 08:10 08:17 WBC (4.5-11.0) K/uL RBC (3.30-5.50) M/uL Hgb (12.0-15.0) g/dL Hct (36.0-48.0) % MCV (80-98) fL MCH (27-31) pg MCHC (32-36) % Plt Count (150-400) K/uL Puncture Site ABG pH (7.350-7.450) ABG pCO2 (35.0-42.0) mmHg ABG pO2 (75.0-100.0) mmHg ABG HCO3 (22.0-26.0) mmol/L ABG Total CO2 (21.0-25.0) mmol/L ABG O2 Saturation (95.0-98.0) % ABG O2 Content (15.0-23.0) %vol ABG Base Excess mm/L ABG Hemoglobin (12.0-16.0) g/dL ABG Oxyhemoglobin % ABG Carboxyhemoglobin (0.0-1.6) % ABG Methemoglobin % Emeterio Test O2 Delivery Device Oxygen Flow Rate L Sodium (140-148) mmol/L Potassium (3.6-5.2) mmol/L Chloride (100-108) mmol/L Carbon Dioxide (21-32) mmol/L Anion Gap (5.0-14.0) mmol/L BUN (7-18) mg/dL Creatinine (0.6-1.0) mg/dL Est Cr Clr Drug Dosing mL/min Estimated GFR (MDRD) (>60) Glucose (74-106) mg/dL Lactic Acid 1.5 (0.4-2.0) mmol/L Calcium (8.5-10.1) mg/dL Troponin I (0.000-0.056) ng/mL NT-Pro-B Natriuret Pep (5-450) pg/mL Urine Color Yellow (YELLOW) Urine Appearance Slightly cloudy A (CLEAR) Urine pH 6.5 (5.0-8.0) Ur Specific [place] 1.020 (1.008-1.030) Urine Protein Trace H (NEGATIVE) mg/dL Urine Glucose (UA) 500 H (NEGATIVE) mg/dL Urine Ketones 40 H (NEGATIVE) mg/dL Urine Occult Blood Moderate H (NEGATIVE) Urine Nitrite Negative (NEGATIVE) Urine Bilirubin Negative (NEGATIVE) Urine Urobilinogen 0.2 (0.2-1.0) EU/dL Ur Leukocyte Esterase Negative (NEGATIVE) Urine RBC 20-30 H (0-5) Urine WBC 0-5 (0-5) Ur Epithelial Cells Rare Amorphous Sediment Not seen Urine Bacteria Not seen Urine Mucus Not seen SARS Virus RNA (PCR) Negative (NEGATIVE) Result Diagrams: 01/25/20 07:22 01/25/20 07:22 Imaging Impressions Last 24 hrs: CXR-images personally reviewed-small persistent LLL infiltrate vs effusion. Similar to 12/23/19. Heart size normal. No mass. Sepsis Event Note - Evaluation Sepsis Screening Result: Possible Sepsis Risk - Focused Exam Vital Signs: Vital Signs Temp Pulse Resp BP Pulse Ox 01/25/20 09:26 37.0 C 94 18 133/61 93 L 01/25/20 08:08 110 H 111/72 90 L 01/25/20 07:39 114 H 21 H 105/52 L 87 L 01/25/20 07:32 38.3 C H 125 H 24 H 102/56 L 93 L 01/25/20 07:00 38.3 C H 125 H 24 H 102/56 L 93 L *Q Meaningful Use (ADM) - VTE Risk Assess *Q Each Risk Factor Represents 1 Point: Obesity ( BMI > 25 kg/m2), Serious lung disease including pneumonia, Abnormal Pulmonary Function (COPD) Total Score 1 Point Risk Factors: 3 Each Risk Factor Represents 2 Points: None Total Score 2 Point Risk Factors: 0 Each Risk Factor Represents 3 Points: Age 75 Years or Greater Total Score 3 Point Risk Factors: 3 Each Risk Factor Represents 5 Points: None Total Score 5 Point Risk Factors: 0 Venous Thromboembolism Risk Factor Score *Q: 6 - Problem List (1) Acute bronchitis SNOMED Code(s): 69500379 ICD Code: J20.9 - ACUTE BRONCHITIS, UNSPECIFIED Status: Acute Current Visit: Yes Qualifiers: Bronchitis organism: unspecified organism Qualified Code(s): J20.9 - Acute bronchitis, unspecified (2) COPD exacerbation SNOMED Code(s): 172091705 ICD Code: J44.1 - CHRONIC OBSTRUCTIVE PULMONARY DISEASE W (ACUTE) EXACERBATION Status: Acute Current Visit: Yes (3) Diabetes mellitus type 2 SNOMED Code(s): 79669528 ICD Code: E11.9 - TYPE 2 DIABETES MELLITUS WITHOUT COMPLICATIONS Status: Chronic Current Visit: No (4) Chronic diastolic (congestive) heart failure SNOMED Code(s): 132571085, 126601191 ICD Code: I50.32 - CHRONIC DIASTOLIC (CONGESTIVE) HEART FAILURE Status: Chronic Current Visit: No Problem List Initiated/Reviewed/Updated: Yes Orders Last 24hrs: Active Orders 24 hr Category Date Time Status Patient Status Manage Transfer [TRANSFER] Routine ADT 01/25/20 10:18 Ordered RT Aerosol Therapy [RC] ASDIRECTED Care 01/25/20 07:01 Active CULTURE BLOOD [BC] Routine Lab 01/25/20 07:22 Received CULTURE BLOOD [BC] Routine Lab 01/25/20 07:22 Received CULTURE URINE [RM] Urgent Lab 01/25/20 08:11 Received Levofloxacin/Dextrose 5%-Water [Levaquin in D5W 750 MG/ Med 01/25/20 10:30 Active 150 ML] 750 mg Premix Bag 1 bag IV Q48H Resuscitation Status Routine Resus Stat 01/25/20 10:21 Ordered Medication Orders Levofloxacin/Dextrose 750 mg/ (Premix) 150 mls @ 100 mls/hr IV Q48H TETE Assessment/Plan Comment:: ASSESSMENT AND PLAN - Acute bronchitis with acute exacerbation of COPD-treated with antibiotics about 1 month ago and steroids about 2 weeks ago. White count is elevated but she does not appear acutely ill. She is on her usual amount of oxygen but has very poor air movement and dyspnea with any exertion. Most recent respiratory culture grew out Pseudomonas, staph aureus and stenotrophomonas. It is unclear which of these was the pathogen in which or maybe all of them were colonizers. Sputum sample revealed moderate gram-positive cocci. -Antibiotic coverage with levofloxacin and doxycycline -Solu-Medrol every 8 hours today and prednisone starting tomorrow -Supplement oxygen -Follow-up cultures Insulin-dependent diabetes mellitus-sugars are running high in the setting of infection and will bump even further with the steroids that are being started. -Continue usual dose of long-acting insulin in the morning and evening -Mealtime insulin -High-dose sliding scale insulin Chronic diastolic congestive heart failure-compensated at this time. -Continue medical management Maintenance issues - - DVT prophylaxis -mechanical - GI prophylaxis -PPI - Nutrition -consistent carbohydrates - Austin catheter -not indicated CODE STATUS -DNR/DNI Admission justification -this patient will be admitted for inpatient services and is medically appropriate meeting medical necessity for inpatient admission as outlined in my documentation. I reasonably expect the patient will require inpatient services that span a period time over 2 midnights. I reasonably expect this patient to be discharged or transferred within 96 hours after admission to the [facility]. Disposition -I would anticipate discharge home after the hospital stay Primary care physician -Dr. Dajuan De La Cruz M.D. - Mortality Measure Prognosis:: Good
[2020-01-25] MEDS ORDERED: Melatonin 3 MG Tab PO PRN (11:10)
[2020-01-25] MEDS ORDERED: LORazepam 2 MG/ML SDV IVPUSH PRN (11:10)
[2020-01-25] MEDS ORDERED: Ondansetron 4 MG Tab.DIS PO PRN (11:10)
[2020-01-25] MEDS ORDERED: Albuterol 0.083% 2.5 MG/3 ML Neb Soln NEB PRN (11:10)
[2020-01-25] MEDS ORDERED: Ondansetron 4 MG/2 ML SDV IV PRN (11:10)
[2020-01-25] MEDS ORDERED: Magnesium Hydroxide 400 MG/5 ML Susp 30 ML Cup PO PRN (11:10)
[2020-01-25] MEDS ORDERED: Acetaminophen 325 MG Tab PO PRN (11:10)
[2020-01-25] MEDS: Albuterol/Ipratropium 3.0-0.5 MG/3 ML Neb Soln NEB SCH ×3 (11:24→21:13)
[2020-01-25] MEDS ORDERED: Insulin Lispro 100 Units/ML 3 ML Vial SUBCUT ONE (11:52)
[2020-01-25] MEDS ORDERED: Insulin Lispro 100 Unit/ML 3 ML KwikPen SUBCUT SCH (12:00)
[2020-01-25] MEDS: Carvedilol 6.25 MG Tab PO SCH ×2 (12:04→20:08)
[2020-01-25] MEDS: Aspirin 81 MG Tab.Chew PO SCH (12:05)
[2020-01-25] MEDS: Tolterodine 2 MG Tab PO SCH ×2 (12:05→20:08)
[2020-01-25] MEDS: Losartan 25 MG Tab PO SCH (12:06)
[2020-01-25] MEDS: Insulin Glargine,Human Rec. Analog 100 Units/ML 3 ML Pen SUBCUT SCH ×2 (12:10→21:15)
[2020-01-25] MEDS: Insulin Lispro 100 Unit/ML 3 ML KwikPen SUBCUT SCH ×4 (12:11→21:13)
[2020-01-25] MEDS: methylPREDNISolone Sodium Succinate 125 MG/2 ML SDV IVPUSH SCH ×2 (14:15→21:21)
[2020-01-25] MEDS: Doxycycline 100 MG in Sodium Chloride 0.9% 100 ML IV SCH (14:16)
[2020-01-25] MEDS: Tiotropium Bromide 4 GM Inhalation Spray (2.5mcg/1 dose; 10 doses) INH SCH (14:21)
[2020-01-25] MEDS: Formoterol/Mometasone 100-5 MCG 8.8 GM Inhaler IH SCH ×2 (14:21→20:08)
[2020-01-25] MEDS: metFORMIN 500 MG Tab PO SCH ×2 (17:20→17:28)
[2020-01-25] MEDS: atorvaSTATin 20 MG Tab PO SCH (20:08)
[2020-01-25] MEDS: Lactobacillus Rhamnosus GG (Probiotic) Cap PO SCH (21:13)
[2020-01-26] MEDS: Doxycycline 100 MG in Sodium Chloride 0.9% 100 ML IV SCH (02:13)
[2020-01-26] MEDS: Formoterol/Mometasone 100-5 MCG 8.8 GM Inhaler IH SCH ×2 (06:58→21:20)
[2020-01-26] MEDS: Albuterol/Ipratropium 3.0-0.5 MG/3 ML Neb Soln NEB SCH ×4 (06:58→21:33)
[2020-01-26] MEDS: Tiotropium Bromide 4 GM Inhalation Spray (2.5mcg/1 dose; 10 doses) INH SCH (06:58)
[2020-01-26] MEDS ORDERED: predniSONE 20 MG Tab PO SCH (08:00)
[2020-01-26] MEDS: Insulin Lispro 100 Unit/ML 3 ML KwikPen SUBCUT SCH ×7 (08:00→21:18)
[2020-01-26] MEDS: Pantoprazole 40 MG Tab.CR PO SCH (08:01)
[2020-01-26] MEDS: metFORMIN 500 MG Tab PO SCH ×2 (08:02→17:40)
[2020-01-26] MEDS: Aspirin 81 MG Tab.Chew PO SCH (08:05)
[2020-01-26] MEDS: Carvedilol 6.25 MG Tab PO SCH ×3 (08:07→21:29)
[2020-01-26] MEDS: Losartan 25 MG Tab PO SCH (08:07)
[2020-01-26] MEDS: Lactobacillus Rhamnosus GG (Probiotic) Cap PO SCH ×2 (08:10→21:21)
[2020-01-26] MEDS: Tolterodine 2 MG Tab PO SCH ×2 (08:11→21:21)
[2020-01-26] MEDS: Insulin Glargine,Human Rec. Analog 100 Units/ML 3 ML Pen SUBCUT SCH ×2 (08:12→21:19)
--- NOTE | 2020-01-26 12:39 | PCM.PN ---
- General Info Date of Service: 01/26/20 Subjective Update: No acute events overnight. Cough and shortness of breath are better but not back to baseline. Oxygenation stable on 4 L. Blood sugars are still moderately elevated but patient has been resistant to receiving subcutaneous insulin because it is different than her dosing at home. She declined her prednisone this morning. She did not have any fevers. Respiratory culture is growing gram-positive cocci with identification pending. Patient feels bored and wants to go home. Functional Status: Reports: Pain Controlled - Review of Systems General: Denies: Fever Pulmonary: Reports: Shortness of Breath, Cough - Patient Data Vitals - Most Recent: Last Vital Signs Temp 36.9 C 01/26/20 11:37 Pulse 79 01/26/20 11:37 Resp 20 01/26/20 11:37 BP 129/57 L 01/26/20 11:37 Pulse Ox 95 01/26/20 11:37 Weight - Most Recent: 75.296 kg I&O - Last 24 Hours: Intake & Output 01/25/20 01/26/20 01/26/20 22:59 06:59 14:59 Intake Total 740 100 360 Balance 740 100 360 Lab Results Last 24 Hours: Laboratory Results - last 24 hr 01/25/20 01/25/20 01/26/20 Range/Units 16:21 21:00 04:29 WBC 29.9 H (4.5-11.0) K/uL RBC 4.18 (3.30-5.50) M/uL Hgb 11.4 L (12.0-15.0) g/dL Hct 37.6 (36.0-48.0) % MCV 90 (80-98) fL MCH 27 (27-31) pg MCHC 30 L (32-36) % Plt Count 233 (150-400) K/uL Sodium (140-148) mmol/L Potassium (3.6-5.2) mmol/L Chloride (100-108) mmol/L Carbon Dioxide (21-32) mmol/L Anion Gap (5.0-14.0) mmol/L BUN (7-18) mg/dL Creatinine (0.6-1.0) mg/dL Est Cr Clr Drug Dosing mL/min Estimated GFR (MDRD) (>60) Glucose (74-106) mg/dL POC Glucose 329 H 361 H (74-106) MG/DL Calcium (8.5-10.1) mg/dL 01/26/20 01/26/20 01/26/20 Range/Units 04:29 07:30 11:30 WBC (4.5-11.0) K/uL RBC (3.30-5.50) M/uL Hgb (12.0-15.0) g/dL Hct (36.0-48.0) % MCV (80-98) fL MCH (27-31) pg MCHC (32-36) % Plt Count (150-400) K/uL Sodium 138 L (140-148) mmol/L Potassium 4.3 (3.6-5.2) mmol/L Chloride 101 (100-108) mmol/L Carbon Dioxide 27 (21-32) mmol/L Anion Gap 14.3 H (5.0-14.0) mmol/L BUN 23 H D (7-18) mg/dL Creatinine 1.1 H (0.6-1.0) mg/dL Est Cr Clr Drug Dosing 38.54 mL/min Estimated GFR (MDRD) 48 L (>60) Glucose 289 H (74-106) mg/dL POC Glucose 291 H 359 H (74-106) MG/DL Calcium 9.2 (8.5-10.1) mg/dL Elio Results Last 24 Hours: Microbiology 01/25/20 07:22 Aerobic Blood Culture - Preliminary Blood - Arm, Left NO GROWTH AFTER 1 DAY Anaerobic Blood Culture - Preliminary NO GROWTH AFTER 1 DAY 01/25/20 07:22 Aerobic Blood Culture - Preliminary Blood - Arm, Right NO GROWTH AFTER 1 DAY Anaerobic Blood Culture - Preliminary NO GROWTH AFTER 1 DAY 01/25/20 11:14 Gram Stain - Final Sputum - Expectorated Respiratory Culture - Preliminary 01/25/20 08:11 Urine Culture - Preliminary Urine, Clean Catch MIXED POSITIVE [place] DAY 1 Med Orders - Current: Current Medications Acetaminophen (Tylenol) 650 mg PO Q4H PRN PRN Reason: Pain (Mild 1-3)/fever Albuterol (Proventil Neb Soln) 2.5 mg NEB Q4H PRN PRN Reason: Shortness Of Breath/wheezing Albuterol/Ipratropium (Duoneb 3.0-0.5 Mg/3 Ml) 3 ml NEB QIDRT TETE Last Admin: 01/26/20 10:33 Dose: 3 ml Documented by: Aspirin (Aspirin) 81 mg PO DAILY [facility] Last Admin: 01/26/20 08:05 Dose: 81 mg Documented by: Atorvastatin Calcium (Lipitor) 40 mg PO BEDTIME [facility] Last Admin: 01/25/20 20:08 Dose: Not Given Documented by: Carvedilol (Coreg) 6.25 mg PO BID [facility] Last Admin: 01/26/20 08:07 Dose: 6.25 mg Documented by: Doxycycline Hyclate (Vibramycin) 100 mg PO Q12H [facility] Insulin Glargine (Lantus Solostar) 15 units SUBCUT BEDTIME [facility] Last Admin: 01/25/20 21:15 Dose: 15 unit Documented by: Insulin Glargine (Lantus Solostar) 30 units SUBCUT DAILY [facility] Last Admin: 01/26/20 08:12 Dose: 30 unit Documented by: Insulin Human Lispro (Humalog) 0 unit SUBCUT QIDACANDBED [facility]; Protocol Last Admin: 01/26/20 11:30 Dose: 15 units Documented by: Insulin Human Lispro (Humalog) 0 unit SUBCUT TIDMEALS [facility] Last Admin: 01/26/20 08:04 Dose: Not Given Documented by: Lactobacillus Rhamnosus (Culturelle) 1 cap PO BID [facility] Last Admin: 01/26/20 08:10 Dose: 1 cap Documented by: Levofloxacin (Levaquin) 750 mg PO Q48H TETE Lorazepam (Ativan) 0.5 mg IVPUSH Q4H PRN PRN Reason: Nausea/Vomiting Losartan Potassium (Cozaar) 25 mg PO DAILY [facility] Last Admin: 01/26/20 08:07 Dose: Not Given Documented by: Magnesium Hydroxide (Milk Of Magnesia) 30 ml PO Q12H PRN PRN Reason: Constipation Melatonin (Melatonin) 9 mg PO BEDTIME PRN PRN Reason: Sleep Metformin HCl (Glucophage) 1,000 mg PO BIDMEALS [facility] Last Admin: 01/26/20 08:02 Dose: 500 mg Documented by: Mometasone Furoate/Formoterol Fumar (Dulera 100-5 Mcg) 2 puff IH BIDRT [facility] Last Admin: 01/26/20 06:58 Dose: Not Given Documented by: Ondansetron HCl (Zofran) 4 mg IV Q6H PRN PRN Reason: Nausea/Vomiting Ondansetron HCl (Zofran Odt) 4 mg PO Q6H PRN PRN Reason: Nausea able to take PO Pantoprazole Sodium (Protonix) 40 mg PO ACBREAKFAST [facility] Last Admin: 01/26/20 08:01 Dose: Not Given Documented by: Senna/Docusate Sodium (Senna Plus) 1 tab PO BID PRN PRN Reason: Constipation Tiotropium [place] (Spiriva Respimat) 0 gm INH DAILYRT [facility] Last Admin: 01/26/20 06:58 Dose: Not Given Documented by: Tolterodine Tartrate (Detrol) 2 mg PO BID [facility] Last Admin: 01/26/20 08:11 Dose: 2 mg Documented by: Discontinued Medications Albuterol/Ipratropium (Duoneb 3.0-0.5 Mg/3 Ml) 3 ml NEB ONETIME ONE Stop: 01/25/20 07:02 Last Admin: 01/25/20 07:14 Dose: 3 ml Documented by: Ceftriaxone Sodium 1 gm/ (Sodium Chloride) 50 mls @ 100 mls/hr IV ONETIME ONE Stop: 01/25/20 07:31 Last Admin: 01/25/20 07:18 Dose: 100 mls/hr Documented by: Sodium Chloride (Normal Saline) 1,000 mls @ 1,000 mls/hr IV .BOLUS ONE Stop: 01/25/20 08:47 Last Admin: 01/25/20 08:10 Dose: 1,000 mls/hr Documented by: Levofloxacin/Dextrose 750 mg/ (Premix) 150 mls @ 100 mls/hr IV Q48H [facility] Last Admin: 01/25/20 10:31 Dose: 100 mls/hr Documented by: Doxycycline Hyclate 100 mg/ (Sodium Chloride) 100 mls @ 100 mls/hr IV Q12H [facility] Last Admin: 01/26/20 02:13 Dose: 100 mls/hr Documented by: Insulin Human Lispro (Humalog) 2 unit SUBCUT TIDMEALS [facility] Insulin Human Lispro (Humalog) 20 unit SUBCUT ONETIME ONE Stop: 01/25/20 11:53 Last Admin: 01/25/20 12:15 Dose: Not Given Documented by: Methylprednisolone Sodium Succinate (Solu-Medrol) 125 mg IVPUSH ONETIME ONE Stop: 01/25/20 07:16 Last Admin: 01/25/20 07:14 Dose: 125 mg Documented by: Methylprednisolone Sodium Succinate (Solu-Medrol) 62.5 mg IVPUSH Q8H [facility] Stop: 01/25/20 22:01 Last Admin: 01/25/20 21:21 Dose: 62.5 mg Documented by: Prednisone (Prednisone) 40 mg PO WITHBREAKFAST [facility] Last Admin: 01/26/20 08:05 Dose: 40 mg Documented by: - Exam Quality Assessment: Supplemental Oxygen General: Alert, Oriented, Cooperative, No Acute Distress Lungs: Normal Respiratory Effort, Decreased Breath Sounds (mild diffuse), Crackles (rare left lower lung). No: Wheezing Cardiovascular: Regular Rate, Regular Rhythm GI/Abdominal Exam: Soft, No Distention Extremities: Pedal Edema (mild both ankles ). No: Increased Warmth Skin: Warm, Dry Psy/Mental Status: Alert, Normal Affect Sepsis Event Note - Evaluation Sepsis Screening Result: Sepsis Risk - Focused Exam Vital Signs: Vital Signs Temp Pulse Pulse Resp BP BP BP 01/26/20 11:37 36.9 C 79 20 129/57 L 01/26/20 08:07 98 115/93 H 01/26/20 08:00 36.7 C 98 20 115/93 H 01/26/20 06:58 90 01/26/20 02:10 36.1 C 80 20 130/50 L Pulse Ox 01/26/20 11:37 95 01/26/20 08:07 01/26/20 08:00 91 L 01/26/20 06:58 01/26/20 02:10 91 L - Problem List & Annotations (1) Acute bronchitis SNOMED Code(s): 43258962 Code(s): J20.9 - ACUTE BRONCHITIS, UNSPECIFIED Status: Acute Current Visit: Yes Qualifiers: Bronchitis organism: unspecified organism Qualified Code(s): J20.9 - Acute bronchitis, unspecified (2) COPD exacerbation SNOMED Code(s): 058023171 Code(s): J44.1 - CHRONIC OBSTRUCTIVE PULMONARY DISEASE W (ACUTE) EXACERBATION Status: Acute Current Visit: Yes (3) Diabetes mellitus type 2 SNOMED Code(s): 22708968 Code(s): E11.9 - TYPE 2 DIABETES MELLITUS WITHOUT COMPLICATIONS Status: Chronic Current Visit: No (4) Chronic diastolic (congestive) heart failure SNOMED Code(s): 099043171, 188693059 Code(s): I50.32 - CHRONIC DIASTOLIC (CONGESTIVE) HEART FAILURE Status: Chronic Current Visit: No - Problem List Review Problem List Initiated/Reviewed/Updated: Yes - My Orders Last 24 Hours: My Active Orders 01/25/20 Lunch Consistent Carbohydrate Diet [DIET] Aspirin 81 mg PO DAILY Insulin Glarg,Human.Rec.Analog [LantUS Solostar] 30 units SUBCUT DAILY Losartan [Cozaar] 25 mg PO DAILY Mometasone/Formoterol [Dulera 100-5 MCG] 2 puff IH BIDRT Tiotropium [place] [Spiriva Respimat] 0 gm INH DAILYRT carvediloL [Coreg] 6.25 mg PO BID 01/25/20 17:00 Insulin Lispro [HumaLOG] 0 unit SUBCUT TIDMEALS metFORMIN [Glucophage] 1,000 mg PO BIDMEALS 01/25/20 21:00 Insulin Glarg,Human.Rec.Analog [LantUS Solostar] 15 units SUBCUT BEDTIME Lactobacillus Rhamnosus GG [Culturelle] 1 cap PO BID atorvaSTATin [Lipitor] 40 mg PO BEDTIME 01/26/20 07:30 Pantoprazole [ProTONIX] 40 mg PO ACBREAKFAST 01/26/20 14:00 Doxycycline [Vibramycin] 100 mg PO Q12H 01/26/20 16:30 GLUCOSE POC LAB TO COLLECT JPM [POC] QIDACANDBED 01/26/20 21:00 GLUCOSE POC LAB TO COLLECT JPM [POC] QIDACANDBED 01/27/20 05:00 BASIC METABOLIC PANEL,BMP [CHEM] Timed CBC W/O DIFF,HEMOGRAM [HEME] Timed (1) 01/27/20 07:30 GLUCOSE POC LAB TO COLLECT JPM [POC] QIDACANDBED 01/27/20 09:00 levoFLOXacin [Levaquin] 750 mg PO Q48H 01/27/20 11:30 GLUCOSE POC LAB TO COLLECT JPM [POC] QIDACANDBED 01/27/20 16:30 GLUCOSE POC LAB TO COLLECT JPM [POC] QIDACANDBED 01/27/20 21:00 GLUCOSE POC LAB TO COLLECT JPM [POC] QIDACANDBED 01/28/20 07:30 GLUCOSE POC LAB TO COLLECT JPM [POC] QIDACANDBED 01/28/20 11:30 GLUCOSE POC LAB TO COLLECT JPM [POC] QIDACANDBED 01/28/20 16:30 GLUCOSE POC LAB TO COLLECT JPM [POC] QIDACANDBED 01/28/20 21:00 GLUCOSE POC LAB TO COLLECT JPM [POC] QIDACANDBED 01/29/20 07:30 GLUCOSE POC LAB TO COLLECT JPM [POC] QIDACANDBED 01/29/20 11:30 GLUCOSE POC LAB TO COLLECT JPM [POC] QIDACANDBED 01/29/20 16:30 GLUCOSE POC LAB TO COLLECT JPM [POC] QIDACANDBED 01/29/20 21:00 GLUCOSE POC LAB TO COLLECT JPM [POC] QIDACANDBED 01/30/20 07:30 GLUCOSE POC LAB TO COLLECT JPM [POC] QIDACANDBED 01/30/20 11:30 GLUCOSE POC LAB TO COLLECT JPM [POC] QIDACANDBED 01/30/20 16:30 GLUCOSE POC LAB TO COLLECT JPM [POC] QIDACANDBED - Plan Plan:: ASSESSMENT AND PLAN - Acute bronchitis with acute exacerbation of COPD-clinically getting better with much less wheezing today. Oxygenation is back to baseline. Still short of breath with activity. Respiratory culture pending and with recent abnormal culture findings I think she would benefit from waiting for results tomorrow morning. -Antibiotic coverage with levofloxacin and doxycycline -Patient declines steroids at this time -Supplement oxygen -Follow-up cultures Insulin-dependent diabetes mellitus-moderate elevation of blood sugars in the setting of steroid use. Levels are trending down. -Continue usual dose of long-acting insulin in the morning and evening -Mealtime insulin -High-dose sliding scale insulin Chronic diastolic congestive heart failure-compensated at this time. -Continue medical management Maintenance issues - - DVT prophylaxis -mechanical - GI prophylaxis -PPI - Nutrition -consistent carbohydrates Disposition -I would anticipate discharge home after the hospital stay Primary care physician -Dr. Dajuan De La Cruz M.D.
[2020-01-26] MEDS: Doxycycline 100 MG Cap PO SCH (15:09)
[2020-01-26] MEDS: atorvaSTATin 20 MG Tab PO SCH (21:29)
[2020-01-27] MEDS: Doxycycline 100 MG Cap PO SCH (05:11)
[2020-01-27] MEDS: Albuterol/Ipratropium 3.0-0.5 MG/3 ML Neb Soln NEB SCH (07:22)
[2020-01-27] MEDS: Formoterol/Mometasone 100-5 MCG 8.8 GM Inhaler IH SCH (07:24)
[2020-01-27] MEDS: Tiotropium Bromide 4 GM Inhalation Spray (2.5mcg/1 dose; 10 doses) INH SCH (07:25)
[2020-01-27] MEDS: Insulin Lispro 100 Unit/ML 3 ML KwikPen SUBCUT SCH ×2 (08:00→08:06)
[2020-01-27] MEDS: Tolterodine 2 MG Tab PO SCH (08:02)
[2020-01-27] MEDS: metFORMIN 500 MG Tab PO SCH (08:03)
[2020-01-27] MEDS: Pantoprazole 40 MG Tab.CR PO SCH (08:03)
[2020-01-27] MEDS: Aspirin 81 MG Tab.Chew PO SCH (08:04)
[2020-01-27] MEDS: Losartan 25 MG Tab PO SCH (08:05)
[2020-01-27] MEDS: Carvedilol 6.25 MG Tab PO SCH (08:05)
[2020-01-27] MEDS: Lactobacillus Rhamnosus GG (Probiotic) Cap PO SCH (08:06)
[2020-01-27] MEDS: Insulin Glargine,Human Rec. Analog 100 Units/ML 3 ML Pen SUBCUT SCH (08:07)
[2020-01-27 08:11] VITALS: PULSE 72
[2020-01-27 08:17] VITALS: BP 130/70
--- NOTE | 2020-01-27 08:53 | PCM.DCSUM1 ---
Discharge Summary - Hospital Course Brief History: 79-year-old female with oxygen dependent COPD, insulin-dependent diabetes mellitus who presented with progressive cough, shortness of breath and weakness. She was admitted for management of acute bronchitis with an exacerbation of her COPD. Diagnosis: Stroke: No - Discharge Data Discharge Date: 01/27/20 Discharge Disposition: Home, Self-Care 01 Condition: Good - Referral to Home Health Primary Care Physician: PCP None - Discharge Diagnosis/Problem(s) (1) Acute bronchitis SNOMED Code(s): 19283181 ICD Code: J20.9 - ACUTE BRONCHITIS, UNSPECIFIED Status: Acute Qualifiers: Bronchitis organism: other organism Qualified Code(s): J20.8 - Acute bronchitis due to other specified organisms (2) COPD exacerbation SNOMED Code(s): 632048051 ICD Code: J44.1 - CHRONIC OBSTRUCTIVE PULMONARY DISEASE W (ACUTE) EXACERBATION Status: Acute (3) Diabetes mellitus type 2 SNOMED Code(s): 67762621 ICD Code: E11.9 - TYPE 2 DIABETES MELLITUS WITHOUT COMPLICATIONS Status: Chronic (4) Chronic diastolic (congestive) heart failure SNOMED Code(s): 703984421, 904891669 ICD Code: I50.32 - CHRONIC DIASTOLIC (CONGESTIVE) HEART FAILURE Status: Chronic - Patient Summary/Data Hospital Course: Virginie presented with progressive cough, shortness of breath and sputum production. Work-up in the emergency room suggested a probable bronchitis versus possibly a left lower lobe pneumonia. She was wheezing and not moving very good air at the time of presentation. She was started on steroids and antibiotics and admitted to the hospital for further management. I did review her most recent respiratory culture which grew out Pseudomonas, staph aureus and stenotrophomonas. We elected to utilize levofloxacin initially. She was admitted to the hospital with IV steroids and IV antibiotics. She did produce a sputum sample which showed significant gram-positive cocci shortly after admission so we added doxycycline. Overnight there were no issues other than hyperglycemia. By the morning after admission her cough and shortness of breath were a little better. She did remain stable on her usual supplemental oxygen but was short of breath with any activity. Her wheezing was better by the morning after admission. She still had hyperglycemia because of the steroids but levels were trending down. We continued the levofloxacin and doxycycline another day. On the morning of discharge her urine culture grew out methicillin sensitive staph aureus. This was pansensitive. No other organisms are growing at this time. Clinically she is doing well and wants to go home. I believe she is safe for discharge home at this point. On the plan is for her to go home with doxycycline for 5 more days to complete 7 days of treatment for her bronchitis. Her wheezing has resolved and she would like to be off steroids since they mess with her blood sugars. I believe this is reasonable since she is no longer wheezing. She has early follow-up scheduled with her primary care. - Patient Instructions Diet: Diabetic Diet Activity: As Tolerated Showering/Bathing: May Shower Notify Provider of: Fever, Increased Pain, Nausea and/or Vomiting Other/Special Instructions: 1. You were in the hospital for management of acute bronchitis caused by staph aureus as well as an exacerbation of your COPD. Your condition has been improving with antibiotic therapy and steroid therapy. We did stop the steroid therapy. I do recommend ongoing antibiotic treatment. Please take doxycycline 100 mg twice daily with food for 11 more doses. Your first dose outside of the hospital will be due tonight. You may increase your activity towards normal as tolerated. You should take a probiotic once daily while you are taking the antibiotics. 2. Continue your other home medications as previously prescribed. 3. Follow up with Dr Dajuan Amador as scheduled - Discharge Plan *PRESCRIPTION DRUG MONITORING PROGRAM REVIEWED*: Not Applicable *COPY OF PRESCRIPTION DRUG MONITORING REPORT IN PATIENT LEIGHA: Not Applicable Prescriptions/Med Rec: Doxycycline [Vibramycin] 100 mg PO BID #11 cap Home Medications: Home Meds Albuterol Sulfate [Proair Hfa] 2 puff IH Q4HR PRN 08/12/13 [History] Aspirin [Thelma Chewable Aspirin] 81 mg PO DAILY 08/12/13 [History] Insulin Aspart [Novolog Flexpen] 2 units SQ ASDIRECTED 08/12/13 [History] Insulin Glarg,Human.Rec.Analog [Lantus] 15 unit SUBCUT QPM 08/12/13 [History] Insulin Glarg,Human.Rec.Analog [Lantus] 30 unit SUBCUT QAM 08/12/13 [History] Ipratropium/Albuterol Sulfate [Duoneb 0.5 MG-3 MG/3 ML] 3 ml IH Q6HR PRN 08/12/13 [History] Omeprazole 20 mg PO DAILY 08/12/13 [History] metFORMIN HCl [Metformin ER Osmotic] 1,000 mg PO BID 08/12/13 [History] carvediloL [Coreg] 6.25 mg PO BID 12/20/17 [History] Acetaminophen [Tylenol] 650 mg PO Q4HR PRN 12/23/19 [History] Candesartan [Atacand] 4 mg PO DAILY 12/23/19 [History] Fluticasone Propionate [Flonase] 2 spray IH DAILY 12/23/19 [History] Fluticasone/Umeclidin/Vilanter [Trelegy Ellipta 100-62.5-25] 1 puff IH DAILY 12/23/19 [History] Tolterodine Tartrate [Detrol LA] 4 mg PO DAILY 12/23/19 [History] Triamcinolone Acetonide [Kenalog 0.1% Crm] 1 dose TOP BID 12/23/19 [History] atorvaSTATin [Lipitor] 40 mg PO BEDTIME 12/23/19 [History] predniSONE 10 mg PO DAILY 12/23/19 [History] Doxycycline [Vibramycin] 100 mg PO BID #11 cap 01/27/20 [Rx] Oxygen Therapy Mode: Nasal Cannula Oxygen Flow Rate (L/min): 4 Patient Handouts: Doxycycline tablets or capsules, Acute Bronchitis, Adult Referrals: Dajuan Amador MD [Physician] - 02/01/20 1:00 pm (Arrive 15 minutes early to register for your appointment.) - Discharge Summary/Plan Comment DC Time >30 min.: No - Patient Data Vitals - Most Recent: Last Vital Signs Temp 36.0 C L 01/26/20 21:32 Pulse 72 01/27/20 08:05 Resp 18 01/27/20 07:00 BP 137/70 01/27/20 08:05 Pulse Ox 94 L 01/27/20 07:25 Weight - Most Recent: 78.9 kg I&O - Last 24 hours: Intake & Output 01/26/20 01/27/20 01/27/20 22:59 06:59 14:59 Intake Total 300 Balance 300 Lab Results - Last 24 hrs: Laboratory Results - last 24 hr 01/26/20 01/26/20 01/26/20 Range/Units 11:30 16:52 21:00 WBC (4.5-11.0) K/uL RBC (3.30-5.50) M/uL Hgb (12.0-15.0) g/dL Hct (36.0-48.0) % MCV (80-98) fL MCH (27-31) pg MCHC (32-36) % Plt Count (150-400) K/uL Sodium (140-148) mmol/L Potassium (3.6-5.2) mmol/L Chloride (100-108) mmol/L Carbon Dioxide (21-32) mmol/L Anion Gap (5.0-14.0) mmol/L BUN (7-18) mg/dL Creatinine (0.6-1.0) mg/dL Est Cr Clr Drug Dosing mL/min Estimated GFR (MDRD) (>60) Glucose (74-106) mg/dL POC Glucose 359 H 357 H 370 H (74-106) MG/DL Calcium (8.5-10.1) mg/dL 01/27/20 01/27/20 01/27/20 Range/Units 05:39 05:39 07:30 WBC 24.7 H (4.5-11.0) K/uL RBC 4.31 (3.30-5.50) M/uL Hgb 11.9 L (12.0-15.0) g/dL Hct 38.9 (36.0-48.0) % MCV 90 (80-98) fL MCH 28 (27-31) pg MCHC 31 L (32-36) % Plt Count 278 (150-400) K/uL Sodium 140 (140-148) mmol/L Potassium 4.5 (3.6-5.2) mmol/L Chloride 104 (100-108) mmol/L Carbon Dioxide 30 (21-32) mmol/L Anion Gap 5.7 (5.0-14.0) mmol/L BUN 26 H (7-18) mg/dL Creatinine 0.9 (0.6-1.0) mg/dL Est Cr Clr Drug Dosing 47.03 mL/min Estimated GFR (MDRD) > 60 (>60) Glucose 170 H (74-106) mg/dL POC Glucose 137 H (74-106) MG/DL Calcium 9.5 (8.5-10.1) mg/dL [facility] Results - Last 24 hrs: Microbiology 01/25/20 07:22 Aerobic Blood Culture - Preliminary Blood - Arm, Left NO GROWTH AFTER 2 DAYS Anaerobic Blood Culture - Preliminary NO GROWTH AFTER 2 DAYS 01/25/20 07:22 Aerobic Blood Culture - Preliminary Blood - Arm, Right NO GROWTH AFTER 2 DAYS Anaerobic Blood Culture - Preliminary NO GROWTH AFTER 2 DAYS 01/25/20 11:14 Gram Stain - Final Sputum - Expectorated Respiratory Culture - Final Staphylococcus Aureus 01/25/20 08:11 Urine Culture - Final Urine, Clean Catch MIXED POSITIVE [place] DAY 2 Med Orders - Current: Current Medications Acetaminophen (Tylenol) 650 mg PO Q4H PRN PRN Reason: Pain (Mild 1-3)/fever Albuterol (Proventil Neb Soln) 2.5 mg NEB Q4H PRN PRN Reason: Shortness Of Breath/wheezing Albuterol/Ipratropium (Duoneb 3.0-0.5 Mg/3 Ml) 3 ml NEB QIDRT [facility] Last Admin: 01/27/20 07:22 Dose: 3 ml Documented by: Aspirin (Aspirin) 81 mg PO DAILY [facility] Last Admin: 01/27/20 08:04 Dose: 81 mg Documented by: Atorvastatin Calcium (Lipitor) 40 mg PO BEDTIME [facility] Last Admin: 01/26/20 21:29 Dose: Not Given Documented by: Carvedilol (Coreg) 6.25 mg PO BID [facility] Last Admin: 01/27/20 08:05 Dose: 6.25 mg Documented by: Doxycycline Hyclate (Vibramycin) 100 mg PO Q12H [facility] Last Admin: 01/27/20 05:11 Dose: 100 mg Documented by: Insulin Glargine (Lantus Solostar) 15 units SUBCUT BEDTIME [facility] Last Admin: 01/26/20 21:19 Dose: 15 unit Documented by: Insulin Glargine (Lantus Solostar) 30 units SUBCUT DAILY [facility] Last Admin: 01/27/20 08:07 Dose: 30 unit Documented by: Insulin Human Lispro (Humalog) 0 unit SUBCUT QIDACANDBED [facility]; Protocol Last Admin: 01/27/20 08:00 Dose: Not Given Documented by: Insulin Human Lispro (Humalog) 0 unit SUBCUT TIDMEALS [facility] Last Admin: 01/27/20 08:06 Dose: Not Given Documented by: Lactobacillus Rhamnosus (Culturelle) 1 cap PO BID [facility] Last Admin: 01/27/20 08:06 Dose: 1 cap Documented by: Levofloxacin 250 mg/ (Levofloxacin 500 mg) 750 mg PO Q48H [facility] Last Admin: 01/27/20 08:02 Dose: 750 mg Documented by: Lorazepam (Ativan) 0.5 mg IVPUSH Q4H PRN PRN Reason: Nausea/Vomiting Losartan Potassium (Cozaar) 25 mg PO DAILY [facility] Last Admin: 01/27/20 08:05 Dose: 25 mg Documented by: Magnesium Hydroxide (Milk Of Magnesia) 30 ml PO Q12H PRN PRN Reason: Constipation Melatonin (Melatonin) 9 mg PO BEDTIME PRN PRN Reason: Sleep Metformin HCl (Glucophage) 1,000 mg PO BIDMEALS [facility] Last Admin: 01/27/20 08:03 Dose: 500 mg Documented by: Mometasone Furoate/Formoterol Fumar (Dulera 100-5 Mcg) 2 puff IH BIDRT [facility] Last Admin: 01/27/20 07:24 Dose: Not Given Documented by: Ondansetron HCl (Zofran) 4 mg IV Q6H PRN PRN Reason: Nausea/Vomiting Ondansetron HCl (Zofran Odt) 4 mg PO Q6H PRN PRN Reason: Nausea able to take PO Pantoprazole Sodium (Protonix) 40 mg PO ACBREAKFAST [facility] Last Admin: 01/27/20 08:03 Dose: Not Given Documented by: Senna/Docusate Sodium (Senna Plus) 1 tab PO BID PRN PRN Reason: Constipation Tiotropium [place] (Spiriva Respimat) 0 gm INH DAILYRT [facility] Last Admin: 01/27/20 07:25 Dose: Not Given Documented by: Tolterodine Tartrate (Detrol) 2 mg PO BID [facility] Last Admin: 01/27/20 08:02 Dose: 2 mg Documented by: Discontinued Medications Albuterol/Ipratropium (Duoneb 3.0-0.5 Mg/3 Ml) 3 ml NEB ONETIME ONE Stop: 01/25/20 07:02 Last Admin: 01/25/20 07:14 Dose: 3 ml Documented by: Ceftriaxone Sodium 1 gm/ (Sodium Chloride) 50 mls @ 100 mls/hr IV ONETIME ONE Stop: 01/25/20 07:31 Last Admin: 01/25/20 07:18 Dose: 100 mls/hr Documented by: Sodium Chloride (Normal Saline) 1,000 mls @ 1,000 mls/hr IV .BOLUS ONE Stop: 01/25/20 08:47 Last Admin: 01/25/20 08:10 Dose: 1,000 mls/hr Documented by: Levofloxacin/Dextrose 750 mg/ (Premix) 150 mls @ 100 mls/hr IV Q48H [facility] Last Admin: 01/25/20 10:31 Dose: 100 mls/hr Documented by: Doxycycline Hyclate 100 mg/ (Sodium Chloride) 100 mls @ 100 mls/hr IV Q12H [facility] Last Admin: 01/26/20 02:13 Dose: 100 mls/hr Documented by: Insulin Human Lispro (Humalog) 2 unit SUBCUT TIDMEALS [facility] Insulin Human Lispro (Humalog) 20 unit SUBCUT ONETIME ONE Stop: 01/25/20 11:53 Last Admin: 01/25/20 12:15 Dose: Not Given Documented by: Methylprednisolone Sodium Succinate (Solu-Medrol) 125 mg IVPUSH ONETIME ONE Stop: 01/25/20 07:16 Last Admin: 01/25/20 07:14 Dose: 125 mg Documented by: Methylprednisolone Sodium Succinate (Solu-Medrol) 62.5 mg IVPUSH Q8H [facility] Stop: 01/25/20 22:01 Last Admin: 01/25/20 21:21 Dose: 62.5 mg Documented by: Prednisone (Prednisone) 40 mg PO WITHBREAKFAST [facility] Last Admin: 01/26/20 08:05 Dose: 40 mg Documented by:
[2020-01-27] MEDS ORDERED: Levofloxacin 500 MG Tab PO SCH (09:00)
== END 2020-01-27 09:39 | disposition home or self-care (01) | DRG 178 ==
LOC: JP.ED 06:28 → JP.MS 10:18
PROVIDERS: ADMIT Internal Medicine; ATTEND Internal Medicine
DX: J15.211 Pneumonia due to Methicillin susceptible Staphylococcus aureus (principal); R09.02 Hypoxemia; J44.0 Chronic obstructive pulmonary disease with (acute) lower respiratory infection; I50.9 Heart failure, unspecified; I73.9 Peripheral vascular disease, unspecified; K21.9 Gastro-esophageal reflux disease without esophagitis; R32 Unspecified urinary incontinence; I50.32 Chronic diastolic (congestive) heart failure; J44.1 Chronic obstructive pulmonary disease with (acute) exacerbation; E11.9 Type 2 diabetes mellitus without complications; L40.9 Psoriasis, unspecified; J20.8 Acute bronchitis due to other specified organisms; Z98.49 Cataract extraction status, unspecified eye; Z20.828 Contact with and (suspected) exposure to other viral communicable diseases; I11.0 Hypertensive heart disease with heart failure; M54.9 Dorsalgia, unspecified; Z79.899 Other long term (current) drug therapy; G89.29 Other chronic pain; Z66 Do not resuscitate; E11.65 Type 2 diabetes mellitus with hyperglycemia; Z79.82 Long term (current) use of aspirin; Z79.52 Long term (current) use of systemic steroids; Z87.891 Personal history of nicotine dependence
CPT/HCPCS: 36600; 71046 ×2; 80048; 81001; 82803; 83605; 83880; 84484; 85027; 87040 ×2; 87086; 94640; J0696; J2930; J7030; J7050; U0002; 36415; 82962; 87070; 87077; 87186; 87205; 96361; 96365; 96375; 99222-AI; 99232; 99238; 99284; 99285-25; A9270-GY; J1815; J1815-GY; J1956; J3490; J7512; J7620-GY

== ENCOUNTER 2020-05-14 19:33 | Emergency (ER) | payer MEDICARE, MEDICAID ==
[2020-05-14] MEDS ORDERED: Albuterol/Ipratropium 3.0-0.5 MG/3 ML Neb Soln NEB ONE (19:48)
[2020-05-14] MEDS ORDERED: Sodium Chloride 0.9% 10 ML Syringe FLUSH PRN ×2 (19:48→20:15)
[2020-05-14] MEDS ORDERED: Bacitracin Oint 1 GM U/D Packet TOP ONE (19:55)
--- NOTE | 2020-05-14 19:55 | EDM.PDOC ---
ED HPI GENERAL MEDICAL PROBLEM - General Chief Complaint: Respiratory Problem Stated Complaint: MED[facility] Time Seen by Provider: 05/14/20 19:35 Source of Information: Reports: Patient, Family, Old Records, RN History Limitations: Reports: No Limitations - History of Present Illness INITIAL COMMENTS - FREE TEXT/NARRATIVE: 79 yo female who lives alone and has known COPD presents via EMS for weakness and low BP. Is on oxygen at 4 liters/min/nc around the clock. Her son says she complained of not feeling well already this morning. She ended up uninjured on her floor about 6 pm unable to get up so EMS responded. She denies black or bloody stools, chest pain, urinary sx's. She did vomit at least once. Is mildly diaphoretic on arrival. BS en route per EMS was OK. Says her stomach was upset today and she slept a lot more than usual. Onset: Today, Gradual Onset Date: 05/14/20 Duration: Hour(s):, Constant Location: Reports: Generalized Quality: Reports: Other (pain not reported) Severity: Moderate Improves with: Reports: None Worsens with: Reports: Other (unsure) Context: Reports: Other (See HPI) Associated Symptoms: Reports: Diaphoresis, Malaise, Nausea/Vomiting, Shortness of Breath (chronic), Weakness. 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) (none) Denies pain Pain Score (Numeric/FACES): 0 - Related Data Allergies Allergy/AdvReac Type Severity Reaction Status Date / Time No Known Allergies Allergy Verified 05/14/20 19:35 Home Meds: Home Meds Albuterol Sulfate [Proair Hfa] 2 puff IH Q4HR PRN 08/12/13 [History] Aspirin [Thelma Chewable Aspirin] 81 mg PO DAILY 08/12/13 [History] Insulin Aspart [Novolog Flexpen] 2 units SQ ASDIRECTED 08/12/13 [History] Insulin Glarg,Human.Rec.Analog [Lantus] 15 unit SUBCUT QPM 08/12/13 [History] Insulin Glarg,Human.Rec.Analog [Lantus] 30 unit SUBCUT QAM 08/12/13 [History] Ipratropium/Albuterol Sulfate [Duoneb 0.5 MG-3 MG/3 ML] 3 ml IH Q6HR PRN 08/12/13 [History] Omeprazole 20 mg PO DAILY 08/12/13 [History] metFORMIN HCl [Metformin ER Osmotic] 1,000 mg PO BID 08/12/13 [History] carvediloL [Coreg] 6.25 mg PO BID 12/20/17 [History] Acetaminophen [Tylenol] 650 mg PO Q4HR PRN 12/23/19 [History] Candesartan [Atacand] 4 mg PO DAILY 12/23/19 [History] Fluticasone Propionate [Flonase] 2 spray IH DAILY 12/23/19 [History] Fluticasone/Umeclidin/Vilanter [Trelegy Ellipta 100-62.5-25] 1 puff IH DAILY 12/23/19 [History] Tolterodine Tartrate [Detrol LA] 4 mg PO DAILY 12/23/19 [History] Triamcinolone Acetonide [Kenalog 0.1% Crm] 1 dose TOP BID 12/23/19 [History] atorvaSTATin [Lipitor] 40 mg PO BEDTIME 12/23/19 [History] predniSONE 10 mg PO DAILY 12/23/19 [History] Doxycycline [Vibramycin] 100 mg PO BID #11 cap 01/27/20 [Rx] Past Medical History HEENT History: Reports: Cataract Cardiovascular History: Reports: Heart Failure, Hypertension Other Cardiovascular History: PAD Respiratory History: Reports: Bronchitis, Recurrent, COPD, Other (See Below) Other Respiratory History: Plural plaque Gastrointestinal History: Reports: GERD Genitourinary History: Reports: Urinary Incontinence 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: Musculoskeletal History: Reports: Back Pain, Chronic Endocrine/Metabolic History: Reports: Diabetes, Type II Dermatologic History: Reports: Psoriasis - Infectious Disease History Infectious Disease History: Reports: Chicken Pox, Measles, Mumps - Past Surgical History HEENT Surgical History: Reports: Cataract Surgery Social & Family History - Family History Endocrine/Metabolic: Reports: Diabetes, type II - Caffeine Use Caffeine Use: Reports: Soda ED ROS GENERAL - Review of Systems Review Of Systems: See Below Constitutional: Reports: Malaise, Weakness, Diaphoresis HEENT: Reports: No Symptoms Respiratory: Reports: Shortness of Breath (chronic) Cardiovascular: Reports: No Symptoms. Denies: Chest Pain Endocrine: Reports: No Symptoms GI/Abdominal: Reports: Flatus, Nausea, Vomiting. Denies: Black Stool, Bloody Stool, Constipation, Diarrhea, Distension, Hematemesis, Hematochezia, Melena : Reports: No Symptoms Musculoskeletal: Reports: No Symptoms Skin: Reports: No Symptoms Neurological: Reports: No Symptoms Psychiatric: Reports: No Symptoms ED EXAM, GENERAL - Physical Exam Exam: See Below Exam Limited By: No Limitations General Appearance: Alert, WD/WN, Mild Distress, Obese Eye Exam: Bilateral Eye: Conjunctival Injection, Normal Inspection Ears: Normal External Exam, Normal Canal, Hearing Grossly Normal Ear Exam: Bilateral Ear: Auricle Normal, Canal Normal Nose: Normal Inspection, No Blood Throat/Mouth: Normal Inspection, Normal Lips, Normal Oropharynx, Normal Voice, No Airway Compromise Head: Atraumatic, Normocephalic Neck: Normal Inspection Respiratory/Chest: Lungs Clear, Decreased Breath Sounds. No: Normal Breath Sounds, Wheezing, Stridor, Retractions Cardiovascular: Regular Rate, Rhythm, No Edema GI/Abdominal: Normal Bowel Sounds, Soft, No Distention, Other (minimal RUQ tenderness only with palpation) Back Exam: Normal Inspection. No: CVA Tenderness (R), CVA Tenderness (L) Extremities: Normal Inspection, Normal Range of Motion, Non-Tender, No Pedal Edema Neurological: Alert, Oriented, CN II-XII Intact, Normal Cognition, No Motor/Sensory Deficits Psychiatric: Normal Affect, Normal Mood Skin Exam: Warm, Intact, Normal Color, No Rash, Diaphoretic (mild) #1 Interpretation EKG Date: 05/14/20 Time: 19:55 Rhythm: NSR Rate (Beats/Min): 101 [place]: Normal P-Wave: Present QRS: Normal ST-T: Normal QT: Normal Comparison: Change From Previous EKG (ST and T wave changes have resolved since last EKG) Course - Vital Signs Text/Narrative:: Dr. Calix called @ , Dr. De La Cruz called @ Last Recorded V/S: Last Vital Signs Temp 37.7 C 05/14/20 23:05 Pulse 114 H 05/14/20 23:05 Resp 31 H 05/14/20 23:05 BP 71/36 L 05/14/20 23:05 Pulse Ox 95 05/14/20 23:05 - Orders/Labs/Meds Orders: Active Orders 24 hr Category Date Time Status Cardiac Monitoring [RC] .As Directed Care 05/14/20 19:47 Active EKG Documentation Completion [RC] ASDIRECTED Care 05/14/20 19:48 Active Austin Catheter Insertion [Insert Urinary Catheter] [OM. Care 05/14/20 20:45 Ordered PC] Q24H RT Aerosol Therapy [RC] ASDIRECTED Care 05/14/20 19:48 Active Urinary Catheter Assessment [RC] ASDIRECTED Care 05/14/20 20:34 Active Chest 1V Frontal [CR] Stat Exams 05/14/20 19:56 Taken Chest Abdomen Pelvis wo Cont [CT] Stat Exams 05/14/20 22:13 Taken CULTURE BLOOD [BC] Stat Lab 05/14/20 20:49 Received CULTURE BLOOD [BC] Stat Lab 05/14/20 20:49 Received Lactated Ringers [Ringers, Lactated] 1,000 ml Med 05/14/20 20:00 Active IV ASDIRECTED Norepinephrine [Levophed] 4 mg Med 05/14/20 21:15 Active Dextrose 5% in Water 246 ml IV TITRATE Sodium Chloride 0.9% [Normal Saline] 1,000 ml Med 05/14/20 20:30 Active IV ASDIRECTED Sodium Chloride 0.9% [Saline Flush] Med 05/14/20 19:48 Active 10 ml FLUSH ASDIRECTED PRN Sodium Chloride 0.9% [Saline Flush] Med 05/14/20 20:15 Active 10 ml FLUSH ASDIRECTED PRN Saline Lock Insert [OM.PC] Routine Oth 05/14/20 19:48 Ordered Saline Lock Insert [OM.PC] Routine Oth 05/14/20 20:15 Ordered EKG 12 Lead [EK] Routine Ther 05/14/20 19:47 Ordered Medication Orders Lactated Ringer's (Ringers, Lactated) 1,000 mls @ 1,000 mls/hr IV ASDIRECTED TETE Last Admin: 05/14/20 20:05 Dose: 1,000 mls/hr Documented by: DESMOND Sodium Chloride (Normal Saline) 1,000 mls @ 150 mls/hr IV ASDIRECTED TETE Last Infusion: 05/14/20 20:33 Dose: 999 mls/hr Documented by: Admin: 05/14/20 20:31 Dose: 150 mls/hr Documented by: DESMOND Norepinephrine Bitartrate 4 mg (/ Dextrose/Water) 250 mls @ 7.5 mls/hr IV TITRATE TETE; Protocol Last Titration: 05/14/20 23:30 Dose: 8 mcg/min, 30 mls/hr Documented by: Titration: 05/14/20 22:42 Dose: 6 mcg/min, 22.5 mls/hr Documented by: Titration: 05/14/20 21:55 Dose: 4 mcg/min, 15 mls/hr Documented by: Admin: 05/14/20 21:39 Dose: 2 mcg/min, 7.5 mls/hr Documented by: DESMOND Sodium Chloride (Saline Flush) 10 ml FLUSH ASDIRECTED PRN PRN Reason: Keep Vein Open Last Admin: 05/14/20 20:13 Dose: 10 ml Documented by: DESMOND Sodium Chloride (Saline Flush) 10 ml FLUSH ASDIRECTED PRN PRN Reason: Keep Vein Open Last Admin: 05/14/20 20:33 Dose: 10 ml Documented by: DESMOND Labs: Laboratory Tests 05/14/20 05/14/20 05/14/20 Range/Units 19:52 19:52 19:52 WBC 23.7 H (4.5-11.0) K/uL RBC 5.11 (3.30-5.50) M/uL Hgb 13.9 D (12.0-15.0) g/dL Hct 45.3 (36.0-48.0) % MCV 89 (80-98) fL MCH 27 (27-31) pg MCHC 31 L (32-36) % Plt Count 12 L* (150-400) K/uL D-Dimer, Quantitative (0.0-500.0) ng/mL Sodium 132 L (140-148) mmol/L Potassium 5.3 H (3.6-5.2) mmol/L Chloride 97 L (100-108) mmol/L Carbon Dioxide 22 (21-32) mmol/L Anion Gap 18.3 H (5.0-14.0) mmol/L BUN 33 H (7-18) mg/dL Creatinine 2.0 H D (0.6-1.0) mg/dL Est Cr Clr Drug Dosing 22.05 mL/min Estimated GFR (MDRD) 24 L (>60) Glucose 160 H (74-106) mg/dL Lactic Acid (0.4-2.0) mmol/L Calcium 9.2 (8.5-10.1) mg/dL Troponin I < 0.017 (0.000-0.056) ng/mL C-Reactive Protein 7.83 H (0.0-0.3) mg/dL Urine Color (YELLOW) Urine Appearance (CLEAR) Urine pH (5.0-8.0) Ur Specific [place] (1.008-1.030) Urine Protein (NEGATIVE) mg/dL Urine Glucose (UA) (NEGATIVE) mg/dL Urine Ketones (NEGATIVE) mg/dL Urine Occult Blood (NEGATIVE) Urine Nitrite (NEGATIVE) Urine Bilirubin (NEGATIVE) Urine Urobilinogen (0.2-1.0) EU/dL Ur Leukocyte Esterase (NEGATIVE) Urine RBC (0-5) Urine WBC (0-5) Ur Epithelial Cells Amorphous Sediment Urine Bacteria Urine Mucus SARS CoV-2 RNA Rapid REJI 05/14/20 05/14/20 05/14/20 Range/Units 20:34 21:12 21:17 WBC (4.5-11.0) K/uL RBC (3.30-5.50) M/uL Hgb (12.0-15.0) g/dL Hct (36.0-48.0) % MCV (80-98) fL MCH (27-31) pg MCHC (32-36) % Plt Count (150-400) K/uL D-Dimer, Quantitative (0.0-500.0) ng/mL Sodium (140-148) mmol/L Potassium (3.6-5.2) mmol/L Chloride (100-108) mmol/L Carbon Dioxide (21-32) mmol/L Anion Gap (5.0-14.0) mmol/L BUN (7-18) mg/dL Creatinine (0.6-1.0) mg/dL Est Cr Clr Drug Dosing mL/min Estimated GFR (MDRD) (>60) Glucose (74-106) mg/dL Lactic Acid 4.6 H (0.4-2.0) mmol/L Calcium (8.5-10.1) mg/dL Troponin I (0.000-0.056) ng/mL C-Reactive Protein (0.0-0.3) mg/dL Urine Color [place] A (YELLOW) Urine Appearance Cloudy A (CLEAR) Urine pH 5.0 (5.0-8.0) Ur Specific [place] >= 1.030 (1.008-1.030) Urine Protein 100 H (NEGATIVE) mg/dL Urine Glucose (UA) Negative (NEGATIVE) mg/dL Urine Ketones Negative (NEGATIVE) mg/dL Urine Occult Blood Moderate H (NEGATIVE) Urine Nitrite Negative (NEGATIVE) Urine Bilirubin Small H (NEGATIVE) Urine Urobilinogen 0.2 (0.2-1.0) EU/dL Ur Leukocyte Esterase Negative (NEGATIVE) Urine RBC 0-5 (0-5) Urine WBC 0-5 (0-5) Ur Epithelial Cells Not seen Amorphous Sediment Many Urine Bacteria Not seen Urine Mucus Not seen SARS CoV-2 RNA Rapid REJI Negative 05/14/20 Range/Units 21:36 WBC (4.5-11.0) K/uL RBC (3.30-5.50) M/uL Hgb (12.0-15.0) g/dL Hct (36.0-48.0) % MCV (80-98) fL MCH (27-31) pg MCHC (32-36) % Plt Count (150-400) K/uL D-Dimer, Quantitative 3248.38 H (0.0-500.0) ng/mL Sodium (140-148) mmol/L Potassium (3.6-5.2) mmol/L Chloride (100-108) mmol/L Carbon Dioxide (21-32) mmol/L Anion Gap (5.0-14.0) mmol/L BUN (7-18) mg/dL Creatinine (0.6-1.0) mg/dL Est Cr Clr Drug Dosing mL/min Estimated GFR (MDRD) (>60) Glucose (74-106) mg/dL Lactic Acid (0.4-2.0) mmol/L Calcium (8.5-10.1) mg/dL Troponin I (0.000-0.056) ng/mL C-Reactive Protein (0.0-0.3) mg/dL Urine Color (YELLOW) Urine Appearance (CLEAR) Urine pH (5.0-8.0) Ur Specific [place] (1.008-1.030) Urine Protein (NEGATIVE) mg/dL Urine Glucose (UA) (NEGATIVE) mg/dL Urine Ketones (NEGATIVE) mg/dL Urine Occult Blood (NEGATIVE) Urine Nitrite (NEGATIVE) Urine Bilirubin (NEGATIVE) Urine Urobilinogen (0.2-1.0) EU/dL Ur Leukocyte Esterase (NEGATIVE) Urine RBC (0-5) Urine WBC (0-5) Ur Epithelial Cells Amorphous Sediment Urine Bacteria Urine Mucus SARS CoV-2 RNA Rapid REJI Meds: Medications Generic Name Dose Route Start Last Admin Trade Name Danilo PRN Reason Stop Dose Admin Lactated Ringer's 1,000 mls @ 1,000 mls/hr 05/14/20 20:00 05/14/20 20:05 Ringers, Lactated IV 1,000 mls/hr ASDIRECTED TETE Administration Sodium Chloride 1,000 mls @ 150 mls/hr 05/14/20 20:30 05/14/20 20:33 Normal Saline IV 999 mls/hr ASDIRECTED TETE Infusion Norepinephrine Bitartrate 4 mg 250 mls @ 7.5 mls/hr 05/14/20 21:15 05/14/20 23:30 / Dextrose/Water IV 8 mcg/min TITRATE TETE 30 mls/hr Titration Protocol 2 MCG/MIN Sodium Chloride 10 ml 05/14/20 19:48 05/14/20 20:13 Saline Flush FLUSH 10 ml ASDIRECTED PRN Administration Keep Vein Open Sodium Chloride 10 ml 05/14/20 20:15 05/14/20 20:33 Saline Flush FLUSH 10 ml ASDIRECTED PRN Administration Keep Vein Open Discontinued Medications Generic Name Dose Route Start Last Admin Trade Name Danilo PRN Reason Stop Dose Admin Acetaminophen 1,000 mg 05/14/20 23:05 Tylenol Extra Strength PO 05/14/20 23:06 ONETIME ONE Albuterol/Ipratropium 3 ml 05/14/20 19:48 05/14/20 20:02 Duoneb 3.0-0.5 Mg/3 Ml NEB 05/14/20 19:49 3 ml ONETIME ONE Administration Bacitracin 1 dose 05/14/20 19:55 05/14/20 20:03 Bacitracin Oint 1 Gm TOP 05/14/20 19:56 1 dose ONETIME ONE Administration Ceftriaxone Sodium 1 gm/ 50 mls @ 100 mls/hr 05/14/20 21:02 05/14/20 21:32 Sodium Chloride IV 05/14/20 21:31 100 mls/hr ONETIME ONE Administration - Radiology Interpretation Free Text/Narrative:: CXR-nothing acute CT abd/chest- IMPRESSION: Moderate distention of the gallbladder. Consider right upper quadrant ultrasound for further evaluation if clinically indicated. Subcutaneous fat stranding overlying the left hip and proximal left upper thigh, incompletely visualized. This could represent soft tissue contusion. Correlate with pain or tenderness at this site. Left lower lobe pulmonary nodule. Recommend follow-up per Fleischner society guidelines, as listed below. Pleural calcifications. This can be seen with asbestos related pleural disease. Coronary artery disease. Nonobstructive bilateral nephrolithiasis. Colonic diverticulosis. FLEISCHNER SOCIETY GUIDELINES - SOLID NODULES: SINGLE LOW RISK - nodule less than 6 mm: No routine follow-up. - nodule 6-8 mm: CT at 6-12 months, then consider CT at 18-24 months. - nodule greater than 8 mm: Consider CT at 3 months, PET/CT or tissue sampling. SINGLE HIGH RISK - nodule less than 6 mm: Optional CT at 12 months. - nodule 6-8 mm: CT at 6-12 months, then CT at 18-24 months. - nodule greater than 8 mm: Consider CT at 3 months, PET/CT or tissue sampling. Please note that all CT scans at this facility use dose modulation, iterative reconstruction, and/or weight-based dosing when appropriate to reduce radiation dose to as low as reasonably achievable. Dictated by Shawnee Manzanares MD @ May 14 2020 11:39PM (Electronic Signature) Departure - Departure Time of Disposition: 23:55 Disposition: DC/Tfer to Acute Hospital 02 Condition: Critical Clinical Impression: Chronic neutrophilia, Elevated lactic acid level, Thrombocytopenia Hypotension Qualifiers: Hypotension type: unspecified hypotension type Qualified Code(s): I95.9 - Hypotension, unspecified CRF (chronic renal failure) Qualifiers: Chronic kidney disease stage: stage 4 (severe) Qualified Code(s): N18.4 - Chronic kidney disease, stage 4 (severe) - Discharge Information Referrals: Dajuan Amador MD [Primary Care Provider] - Forms: ED Department Discharge Sepsis Event Note (ED) - Evaluation Sepsis Screening Result: No Definite Risk - Focused Exam Vital Signs: Vital Signs Temp Pulse Resp BP Pulse Ox 05/14/20 23:05 37.7 C 114 H 31 H 71/36 L 95 05/14/20 22:16 96 85/41 L 98 05/14/20 22:00 37.4 C 96 30 H 73/37 L 93 L 05/14/20 21:55 37.4 C 96 33 H 54/26 L 92 L 05/14/20 21:33 95 32 H 69/22 L 94 L 05/14/20 20:47 36.8 C 93 22 H 69/27 L 95 05/14/20 20:32 89 34 H 61/30 L 94 L 05/14/20 20:15 93 32 H 67/33 L 94 L 05/14/20 20:02 96 23 H 65/33 L 99 05/14/20 19:38 35.9 C L 101 H 24 H 89/52 L 90 L 05/14/20 19:35 35.9 C L 101 H 24 H 89/52 L 90 L - My Orders Last 24 Hours: My Active Orders 05/14/20 19:47 Cardiac Monitoring [RC] .As Directed EKG 12 Lead [EK] Routine 05/14/20 19:48 EKG Documentation Completion [RC] ASDIRECTED RT Aerosol Therapy [RC] ASDIRECTED Sodium Chloride 0.9% [Saline Flush] 10 ml FLUSH ASDIRECTED PRN Saline Lock Insert [OM.PC] Routine 05/14/20 19:56 Chest 1V Frontal [CR] Stat 05/14/20 20:00 Lactated Ringers [Ringers, Lactated] 1,000 ml IV ASDIRECTED 05/14/20 20:15 Sodium Chloride 0.9% [Saline Flush] 10 ml FLUSH ASDIRECTED PRN Saline Lock Insert [OM.PC] Routine 05/14/20 20:30 Sodium Chloride 0.9% [Normal Saline] 1,000 ml IV ASDIRECTED 05/14/20 20:34 Urinary Catheter Assessment [RC] ASDIRECTED 05/14/20 20:45 Austin Catheter Insertion [Insert Urinary Catheter] [OM.PC] Q24H 05/14/20 20:49 CULTURE BLOOD [BC] Stat CULTURE BLOOD [BC] Stat 05/14/20 21:15 Norepinephrine [Levophed] 4 mg Dextrose 5% in Water 246 ml IV TITRATE 05/14/20 22:13 Chest Abdomen Pelvis wo Cont [CT] Stat - Assessment/Plan Last 24 Hours: My Active Orders 05/14/20 19:47 Cardiac Monitoring [RC] .As Directed EKG 12 Lead [EK] Routine 05/14/20 19:48 EKG Documentation Completion [RC] ASDIRECTED RT Aerosol Therapy [RC] ASDIRECTED Sodium Chloride 0.9% [Saline Flush] 10 ml FLUSH ASDIRECTED PRN Saline Lock Insert [OM.PC] Routine 05/14/20 19:56 Chest 1V Frontal [CR] Stat 05/14/20 20:00 Lactated Ringers [Ringers, Lactated] 1,000 ml IV ASDIRECTED 05/14/20 20:15 Sodium Chloride 0.9% [Saline Flush] 10 ml FLUSH ASDIRECTED PRN Saline Lock Insert [OM.PC] Routine 05/14/20 20:30 Sodium Chloride 0.9% [Normal Saline] 1,000 ml IV ASDIRECTED 05/14/20 20:34 Urinary Catheter Assessment [RC] ASDIRECTED 05/14/20 20:45 Austin Catheter Insertion [Insert Urinary Catheter] [OM.PC] Q24H 05/14/20 20:49 CULTURE BLOOD [BC] Stat CULTURE BLOOD [BC] Stat 05/14/20 21:15 Norepinephrine [Levophed] 4 mg Dextrose 5% in Water 246 ml IV TITRATE 05/14/20 22:13 Chest Abdomen Pelvis wo Cont [CT] Stat
[2020-05-14] MEDS ORDERED: Lactated Ringers 1,000 ML IV SCH (20:00)
[2020-05-14] MEDS ORDERED: Sodium Chloride 0.9% 1,000 ML IV SCH (20:30)
[2020-05-14] MEDS ORDERED: cefTRIAXone 1 GM in Sodium Chloride 0.9% 50 ML IV ONE (21:02)
[2020-05-14] MEDS ORDERED: Norepinephrine 4 MG in Dextrose 5% in Water 246 ML IV SCH ×2 (21:15)
[2020-05-14] MEDS ORDERED: Acetaminophen 500 MG Tab PO ONE (23:05)
[2020-05-15 00:20] VITALS: BP 95/45; PULSE 101
--- NOTE | 2020-05-15 07:43 | CRLCT ---
Final Report: INDICATION: Hypotension TECHNIQUE: CT chest, abdomen and pelvis acquired without IV contrast. COMPARISON: None. FINDINGS: Images are degraded by patient motion artifact. Chest: Cardiovascular structures: Heart size is normal. Coronary artery calcifications. Thoracic aorta and main pulmonary artery are normal in caliber. Mediastinum and christos: No mass or adenopathy. Lungs: 4 mm subpleural pulmonary nodule left lower lobe image 60 series 3. Pleura and pericardium: No effusions. There are pleural calcifications. Chest wall and axilla: No mass or adenopathy. Bones: Increased kyphosis of the thoracic spine with ankylosis of the mid thoracic spine. Abdomen and Pelvis: Liver: Unremarkable. Spleen: Unremarkable. Pancreas: Unremarkable. Gallbladder and bile ducts: The gallbladder is distended. Adrenal glands: Unremarkable. Kidneys: Nonobstructive bilateral nephrolithiasis. GI tract: Colonic diverticulosis. Vascular structures: Moderate atherosclerotic disease. Lymph nodes: Unremarkable. Miscellaneous: Subcutaneous fat stranding overlying the left hip and proximal upper thigh, incompletely visualized. No free air or significant free fluid. Pelvic Organs: Austin catheter decompresses the urinary bladder. Bones: Unremarkable for age. IMPRESSION: Moderate distention of the gallbladder. Consider right upper quadrant ultrasound for further evaluation if clinically indicated. Subcutaneous fat stranding overlying the left hip and proximal left upper thigh, incompletely visualized. This could represent soft tissue contusion. Correlate with pain or tenderness at this site. Left lower lobe pulmonary nodule. Recommend follow-up per Fleischner society guidelines, as listed below. Pleural calcifications. This can be seen with asbestos related pleural disease. Coronary artery disease. Nonobstructive bilateral nephrolithiasis. Colonic diverticulosis. FLEISCHNER SOCIETY GUIDELINES - SOLID NODULES: SINGLE LOW RISK - nodule less than 6 mm: No routine follow-up. - nodule 6-8 mm: CT at 6-12 months, then consider CT at 18-24 months. - nodule greater than 8 mm: Consider CT at 3 months, PET/CT or tissue sampling. SINGLE HIGH RISK - nodule less than 6 mm: Optional CT at 12 months. - nodule 6-8 mm: CT at 6-12 months, then CT at 18-24 months. - nodule greater than 8 mm: Consider CT at 3 months, PET/CT or tissue sampling. Please note that all CT scans at this facility use dose modulation, iterative reconstruction, and/or weight-based dosing when appropriate to reduce radiation dose to as low as reasonably achievable. Dictated by Shawnee Manzanares MD @ May 14 2020 11:39PM (Electronic Signature) MTDD
--- NOTE | 2020-05-15 09:25 | CR ---
CHEST: Portable 05/14/2020 at 8:52 PM CLINICAL HISTORY:SOB, weakness COMPARISON:01/25/2020 FINDINGS: Heart size and pulmonary vascularity are normal. No infiltrates are seen There is some diffuse calcified pleural plaque. There are atherosclerotic changes in the aorta.. Lungs are hyperaerated. IMPRESSION: No acute cardiopulmonary process Chronic lung changes Calcified pleural plaque consistent with previous asbestos exposure
== END 2020-05-15 00:30 ==
LOC: JP.ED 19:33
DX: I95.9 Hypotension, unspecified (principal); R74.8 Abnormal levels of other serum enzymes; D69.6 Thrombocytopenia, unspecified; D72.828 Other elevated white blood cell count; I13.0 Hypertensive heart and chronic kidney disease with heart failure and stage 1 through stage 4 chronic kidney disease, or unspecified chronic kidney disease; E11.22 Type 2 diabetes mellitus with diabetic chronic kidney disease; N18.4 Chronic kidney disease, stage 4 (severe); I50.9 Heart failure, unspecified; J44.9 Chronic obstructive pulmonary disease, unspecified; K21.9 Gastro-esophageal reflux disease without esophagitis; Z79.82 Long term (current) use of aspirin; Z79.4 Long term (current) use of insulin; Z79.899 Other long term (current) drug therapy; Z20.828 Contact with and (suspected) exposure to other viral communicable diseases
CPT/HCPCS: 36415; 51702; 71045; 71250; 74176; 80048; 81001; 83605; 84484; 85027; 85379; 86140; 87040; 93005; 94640; 96365; 96366; 96367; 99285; A9270; J0696; J7030; J7050; J7060; J7120; U0002; J7620-GY

== ENCOUNTER 2020-12-19 08:22 | Emergency (ER) | payer MEDICARE, MEDICAID ==
[2020-12-19 08:32] VITALS: BP 81/61; PULSE 96
--- NOTE | 2020-12-19 08:40 | EDM.PDOC ---
ED HPI GENERAL MEDICAL PROBLEM - General Chief Complaint: General Stated Complaint: MED VIA [facility] Time Seen by Provider: 12/19/20 08:40 Source of Information: Reports: Patient, EMS, RN Notes Reviewed History Limitations: Reports: No Limitations - History of Present Illness INITIAL COMMENTS - FREE TEXT/NARRATIVE: 79-year-old female with COPD and cardiac disease and diabetes apparently tripped and fell 2 days ago landing on her right chest wall and her right knee. She was able to get up and has moved about since then but notes discomfort now in her right knee and in the right chest under the breast when she takes a deep breath. No change in her pulmonary status but she is on supplemental oxygen at home for her COPD and lung problems. 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 She typically walks with a walker because of instability in the right leg but was not using one at the time of the fall. She has no other new complaints but any of her other system problems - Related Data Allergies Allergy/AdvReac Type Severity Reaction Status Date / Time No Known Allergies Allergy Verified 12/19/20 08:25 Home Meds: Home Meds Albuterol Sulfate [Proair Hfa] 2 puff IH Q4HR PRN 08/12/13 [History] Aspirin [Thelma Chewable Aspirin] 81 mg PO DAILY 08/12/13 [History] Insulin Aspart [Novolog Flexpen] 2 units SQ ASDIRECTED 08/12/13 [History] Insulin Glarg,Human.Rec.Analog [Lantus] 15 unit SUBCUT QPM 08/12/13 [History] Insulin Glarg,Human.Rec.Analog [Lantus] 30 unit SUBCUT QAM 08/12/13 [History] Ipratropium/Albuterol Sulfate [Duoneb 0.5 MG-3 MG/3 ML] 3 ml IH Q6HR PRN 08/12/13 [History] Omeprazole 20 mg PO DAILY 08/12/13 [History] metFORMIN HCl [Metformin ER Osmotic] 1,000 mg PO BID 08/12/13 [History] carvediloL [Coreg] 6.25 mg PO BID 12/20/17 [History] Acetaminophen [Tylenol] 650 mg PO Q4HR PRN 12/23/19 [History] Candesartan [Atacand] 4 mg PO DAILY 12/23/19 [History] Fluticasone Propionate [Flonase] 2 spray IH DAILY 12/23/19 [History] Fluticasone/Umeclidin/Vilanter [Trelegy Ellipta 100-62.5-25] 1 puff IH DAILY 12/23/19 [History] Tolterodine Tartrate [Detrol LA] 4 mg PO DAILY 12/23/19 [History] atorvaSTATin [Lipitor] 40 mg PO BEDTIME 12/23/19 [History] predniSONE 10 mg PO DAILY 12/23/19 [History] Past Medical History HEENT History: Reports: Cataract Cardiovascular History: Reports: Heart Failure, Hypertension, Other (See Below) Other Cardiovascular History: PAD Respiratory History: Reports: Bronchitis, Recurrent, COPD, Other (See Below) Other Respiratory History: Plural plaque Gastrointestinal History: Reports: GERD Genitourinary History: Reports: Urinary Incontinence 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: Musculoskeletal History: Reports: Back Pain, Chronic Endocrine/Metabolic History: Reports: Diabetes, Type II Hematologic History: Reports: Idiopathic Thrombocytopenia Dermatologic History: Reports: Psoriasis - Infectious Disease History Infectious Disease History: Reports: Chicken Pox, Measles, Mumps - Past Surgical History HEENT Surgical History: Reports: Cataract Surgery GI Surgical History: Reports: Appendectomy Musculoskeletal Surgical History: Reports: Arthroscopic Knee Social & Family History - Family History Endocrine/Metabolic: Reports: Diabetes, type II - Caffeine Use Caffeine Use: Reports: Soda ED ROS GENERAL - Review of Systems Review Of Systems: Comprehensive ROS is negative, except as noted in HPI. ED EXAM, GENERAL - Physical Exam Exam: See Below Free Text/Narrative:: 79-year-old female with good vital signs sitting on the gurney with supplemental oxygen not appearing to be in any great distress. HEENT shows eyes ears nose and throat appear to be okay. She is edentulous when seen. There is no evidence of injury to the head Neck is supple normal range of motion Chest has distant breath sounds. She appears a regular rhythm. She has bruising to the right breast with ecchymosis. She has tenderness under the breast at about the ninth or 10th rib laterally but no ecchymosis there. Abdomen soft active bowel sounds nontender extremities without deformity or edema with the exception that she has abrasions over the right patella. She has lateral medial stability no tenderness over the medial or lateral collaterals. She has a negative drawer sign. Patella moves about seemly without pain although she has an abrasion over the surface. Other extremities appear to be normal with good range of motion Skin as described with some abrasions Neurologic physiologic tone and coordination she is able to walk Exam Limited By: No Limitations Course - Vital Signs Text/Narrative:: Chest x-ray shows some pulmonary disease but no evidence of fractured ribs on my review and the radiologist has not reported any either. X-ray of the knee however does show a superior pole fracture of the right patella with some effusion per radiologist interpretation Ortho recommends a knee immobilizer in order to keep pressure off the patella and follow-up with Ortho in 2 weeks The patient is unable to tolerate a knee immobilizer as she will be able to get to the toilet on her own or do adult daily living activities. She does not really complain of pain in that knee either her pain is primarily in the ribs. I like to try with just an Huy wrap and see how she does and follow with Ortho in 2 weeks as planned Last Recorded V/S: Last Vital Signs Temp 36.4 C 12/19/20 08:33 Pulse 96 12/19/20 08:33 Resp 20 12/19/20 08:33 BP 81/61 L 12/19/20 08:33 Pulse Ox 88 L 12/19/20 08:33 - Orders/Labs/Meds Orders: Active Orders 24 hr Category Date Time Status RT Post Treatment Assessment [RC] Click to Edit Care 12/19/20 09:13 Active Ribs 2V w Chest Rt [CR] Stat Exams 12/19/20 09:12 Taken Albuterol [Ventolin HFA] Med 12/19/20 09:12 Active See Dose Instructions INH Q4H PRN Medication Orders Albuterol (Albuterol 8 Gm Inhaler) 0 gm INH Q4H PRN PRN Reason: Cough Last Admin: 12/19/20 09:40 Dose: 2 puff Documented by: PAU Meds: Medications Generic Name Dose Route Start Last Admin Trade Name Freq PRN Reason Stop Dose Admin Albuterol 0 gm 12/19/20 09:12 12/19/20 09:40 Albuterol 8 Gm Inhaler INH 2 puff Q4H PRN Administration Cough Discontinued Medications Generic Name Dose Route Start Last Admin Trade Name Freq PRN Reason Stop Dose Admin Albuterol Confirm 12/19/20 09:12 Albuterol 8 Gm Inhaler Administered 12/19/20 09:13 Dose 8 gm INH .STK-MED ONE Departure - Departure Time of Disposition: 11:00 Disposition: Home, Self-Care 01 Clinical Impression: Contusion of rib on right side, Chest pain made worse by breathing, Knee injury, Fracture of patella, right, closed - Discharge Information Referrals: PCP,None [Primary Care Provider] - Forms: ED Department Discharge Additional Instructions: Appointment set for follow-up in orthopedic clinic in 2 weeks according to the [facility] Sepsis Event Note (ED) - Focused Exam Vital Signs: Vital Signs Temp Pulse Resp BP Pulse Ox 12/19/20 08:33 36.4 C 96 20 81/61 L 88 L 12/19/20 08:27 36.4 C 96 20 81/61 L 88 L - My Orders Last 24 Hours: My Active Orders 12/19/20 09:12 Ribs 2V w Chest Rt [CR] Stat Albuterol [Ventolin HFA] See Dose Instructions INH Q4H PRN 12/19/20 09:13 RT Post Treatment Assessment [RC] Click to Edit - Assessment/Plan Last 24 Hours: My Active Orders 12/19/20 09:12 Ribs 2V w Chest Rt [CR] Stat Albuterol [Ventolin HFA] See Dose Instructions INH Q4H PRN 12/19/20 09:13 RT Post Treatment Assessment [RC] Click to Edit
[2020-12-19] MEDS ORDERED: Albuterol 8 GM Inhaler INH ONE (09:12)
[2020-12-19] MEDS ORDERED: Albuterol 8 GM Inhaler INH PRN (09:12)
--- NOTE | 2020-12-19 10:07 | CRLCR ---
For Patients: As a result of the Cures Act, medical imaging exams and procedure reports are released immediately into your electronic medical record. You may view this report before your referring provider. If you have questions, please contact your health care provider. INDICATION: Trauma. Fall. The patient fell 2 days ago. TECHNIQUE: Two views of the right knee. FINDINGS: Acute nondisplaced fracture superior pole right patella best appreciate on the lateral view with soft tissue swelling and a suprapatellar effusion. Skeletal demineralization. IMPRESSION: Nondisplaced fracture superior right patella seen on the lateral view with soft tissue swelling/hematoma and a suprapatellar effusion. Dictated by Yehuda Lopez MD @ 12/19/2020 10:05:[address] Yehuda Lopez @ Dec 19 2020 10:05AM
--- NOTE | 2020-12-19 10:40 | CRLCR ---
For Patients: As a result of the Cures Act, medical imaging exams and procedure reports are released immediately into your electronic medical record. You may view this report before your referring provider. If you have questions, please contact your health care provider. INDICATION: Trauma, fall TECHNIQUE: Chest and right ribs 3 views. COMPARISON: Chest x-ray May 14, 2020 FINDINGS: Cardiovascular and mediastinum: Heart size and vasculature are normal in caliber and appearance. Mediastinum is within normal limits. Lungs and pleural spaces: Small ill-defined opacity is in the left lung base. Remainder of the lungs and pleural spaces are clear. No pneumothorax. Bones and soft tissues: Detailed oblique images of the right ribs demonstrate no fractures or bone lesions. IMPRESSION: No sign of acute injury. No rib fracture visualized. Small pneumonia suspected in the left lung base. Dictated by Terry Larson MD @ 12/19/2020 10:40:[address] Terry Larson @ Dec 19 2020 10:40AM
== END 2020-12-19 11:35 | disposition home or self-care (01) ==
LOC: JP.ED 08:22
DX: S82.091A Other fracture of right patella, initial encounter for closed fracture (principal); S20.211A Contusion of right front wall of thorax, initial encounter; J44.9 Chronic obstructive pulmonary disease, unspecified; I11.0 Hypertensive heart disease with heart failure; I50.9 Heart failure, unspecified; K21.9 Gastro-esophageal reflux disease without esophagitis; E11.9 Type 2 diabetes mellitus without complications; Z79.82 Long term (current) use of aspirin; Z79.4 Long term (current) use of insulin; Z79.899 Other long term (current) drug therapy; W18.39XA Other fall on same level, initial encounter; Y92.009 Unspecified place in unspecified non-institutional (private) residence as the place of occurrence of the external cause
CPT/HCPCS: 71101; 73560; 94640; 99284; A9270

== ENCOUNTER 2020-12-20 08:45 | Emergency (ER) | payer MEDICARE, MEDICAID ==
[2020-12-20] MEDS ORDERED: Morphine 2 MG/ML SYRINGE IVPUSH ONE (09:35)
--- NOTE | 2020-12-20 09:48 | EDM.PDOC ---
ED HPI GENERAL MEDICAL PROBLEM - General Chief Complaint: Cardiovascular Problem Stated Complaint: LOW BLOOD PRESSURE Time Seen by Provider: 12/20/20 09:28 Source of Information: Reports: Patient, Family, Old Records, RN Notes Reviewed History Limitations: Reports: No Limitations - History of Present Illness INITIAL COMMENTS - FREE TEXT/NARRATIVE: 79-year-old female presents emergency department today complaint of ongoing chest and knee pain as well as low blood pressure. The low blood pressure may be related to her wrist cuff that she has at home as blood pressure taken here by nursing staff is within normal limits. She did have a fall couple days ago was evaluated in the ED yesterday found to have nondisplaced fracture of the superior pole of the patella was recommended to use a knee immobilizer unfortunately she cannot tolerate this she has significant COPD does have significant bruising to her right side of her chest she has not been taking any pain medications and feels very fatigued. Has not had any fevers at home no nausea or vomiting - Related Data Allergies Allergy/AdvReac Type Severity Reaction Status Date / Time No Known Allergies Allergy Verified 12/19/20 08:25 Home Meds: Home Meds Albuterol Sulfate [Proair Hfa] 2 puff IH Q4HR PRN 08/12/13 [History] Aspirin [Thelma Chewable Aspirin] 81 mg PO DAILY 08/12/13 [History] Insulin Aspart [Novolog Flexpen] 2 units SQ ASDIRECTED 08/12/13 [History] Insulin Glarg,Human.Rec.Analog [Lantus] 15 unit SUBCUT QPM 08/12/13 [History] Insulin Glarg,Human.Rec.Analog [Lantus] 30 unit SUBCUT QAM 08/12/13 [History] Ipratropium/Albuterol Sulfate [Duoneb 0.5 MG-3 MG/3 ML] 3 ml IH Q6HR PRN 08/12/13 [History] Omeprazole 20 mg PO DAILY 08/12/13 [History] metFORMIN HCl [Metformin ER Osmotic] 1,000 mg PO BID 08/12/13 [History] carvediloL [Coreg] 6.25 mg PO BID 12/20/17 [History] Acetaminophen [Tylenol] 650 mg PO Q4HR PRN 12/23/19 [History] Candesartan [Atacand] 4 mg PO DAILY 12/23/19 [History] Fluticasone Propionate [Flonase] 2 spray IH DAILY 12/23/19 [History] Fluticasone/Umeclidin/Vilanter [Trelegy Ellipta 100-62.5-25] 1 puff IH DAILY 12/23/19 [History] Tolterodine Tartrate [Detrol LA] 4 mg PO DAILY 12/23/19 [History] atorvaSTATin [Lipitor] 40 mg PO BEDTIME 12/23/19 [History] predniSONE 10 mg PO DAILY 12/23/19 [History] Past Medical History HEENT History: Reports: Cataract Cardiovascular History: Reports: Heart Failure, Hypertension, Other (See Below) Other Cardiovascular History: PAD Respiratory History: Reports: Bronchitis, Recurrent, COPD, Other (See Below) Other Respiratory History: Plural plaque Gastrointestinal History: Reports: GERD Genitourinary History: Reports: Urinary Incontinence 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: Musculoskeletal History: Reports: Back Pain, Chronic Endocrine/Metabolic History: Reports: Diabetes, Type II Hematologic History: Reports: Idiopathic Thrombocytopenia Dermatologic History: Reports: Psoriasis - Infectious Disease History Infectious Disease History: Reports: Chicken Pox, Measles, Mumps - Past Surgical History Head Surgeries/Procedures: Reports: None HEENT Surgical History: Reports: Cataract Surgery Cardiovascular Surgical History: Reports: None Respiratory Surgical History: Reports: None GI Surgical History: Reports: Appendectomy Endocrine Surgical History: Reports: None Musculoskeletal Surgical History: Reports: Arthroscopic Knee Dermatological Surgical History: Reports: None Social & Family History - Family History Endocrine/Metabolic: Reports: Diabetes, type II - Tobacco Use Tobacco Use Status *Q: Former Tobacco User Used Tobacco, but Quit: Yes Month/Year Tobacco Last Used: 2004 Second Hand Smoke Exposure: No - Caffeine Use Caffeine Use: Reports: Soda - Recreational Drug Use Recreational Drug Use: No ED ROS GENERAL - Review of Systems Review Of Systems: See Below Constitutional: Reports: No Symptoms HEENT: Reports: No Symptoms Respiratory: Reports: Shortness of Breath Cardiovascular: Reports: Chest Pain, Dyspnea on Exertion Musculoskeletal: Reports: Joint Pain (knee pain) Skin: Reports: Bruising ED EXAM, GENERAL - Physical Exam Exam: See Below Exam Limited By: No Limitations General Appearance: Alert, WD/WN, No Apparent Distress Respiratory/Chest: Decreased Breath Sounds, Other (Significant bruising appreciated over right breast area). No: Crackles, Rales, Rhonchi Cardiovascular: Regular Rate, Rhythm, No Murmur #1 Interpretation EKG Date: 12/20/20 Time: 12:12 Rhythm: NSR Hammond: Normal P-Wave: Present QRS: Normal ST-T: Normal QT: Normal Comparison: No Change Course - Vital Signs Last Recorded V/S: Last Vital Signs Temp 97.4 F 12/20/20 09:00 Pulse 93 12/20/20 09:00 Resp 25 H 12/20/20 09:00 BP 140/56 L 12/20/20 09:00 Pulse Ox 90 L 12/20/20 09:00 - Orders/Labs/Meds Orders: Active Orders 24 hr Category Date Time Status EKG Documentation Completion [RC] ASDIRECTED Care 12/20/20 10:59 Active RT Aerosol Therapy [RC] ASDIRECTED Care 12/20/20 11:17 Active Vital Signs [RC] Q1H Care 12/20/20 10:03 Active CORONAVIRUS COVID-19, REJI Urgent Lab 12/20/20 14:28 Ordered CULTURE BLOOD [BC] Urgent Lab 12/20/20 10:16 Received CULTURE BLOOD [BC] Urgent Lab 12/20/20 10:25 Received UA W/MICROSCOPIC [URIN] Routine Lab 12/20/20 10:03 Ordered Dextrose 50% in Water Med 12/20/20 11:16 Active 50 ml IVPUSH ASDIRECTED PRN Glucagon,Human Recombinant [GlucaGen] Med 12/20/20 11:16 Active 1 mg IM ASDIRECTED PRN Sodium Chloride 0.9% [Normal Saline] 1,000 ml Med 12/20/20 14:30 Ordered IV ASDIRECTED Blood Culture x2 Reflex Set [OM.PC] Urgent Oth 12/20/20 10:03 Ordered EKG 12 Lead [EK] Stat Ther 12/20/20 10:59 Ordered Medication Orders Dextrose/Water (50% Dextrose In Water 50 Ml Syringe) 50 ml IVPUSH ASDIRECTED PRN PRN Reason: Hypoglycemia Glucagon (Glucagon,Human Recombinant 1 Mg Vial) 1 mg IM ASDIRECTED PRN PRN Reason: Hypoglycemia Sodium Chloride (Normal Saline) 1,000 mls @ 500 mls/hr IV ASDIRECTED TETE Labs: Laboratory Tests 12/20/20 12/20/20 12/20/20 Range/Units 10:30 10:30 10:30 WBC 27.1 H (4.5-11.0) K/uL RBC 4.30 (3.30-5.50) M/uL Hgb 11.7 L D (12.0-15.0) g/dL Hct 37.8 (36.0-48.0) % MCV 88 (80-98) fL MCH 27 (27-31) pg MCHC 31 L (32-36) % Plt Count 340 (150-400) K/uL Neut % (Auto) 88.1 H (36-66) % Lymph % (Auto) 6.2 L (24-44) % Sullivan % (Auto) 5.5 (2-6) % Eos % (Auto) 0.0 L (2-4) % Baso % (Auto) 0.2 (0-1) % Sodium 131 L (140-148) mmol/L Potassium 6.3 H* (3.6-5.2) mmol/L Chloride 94 L (100-108) mmol/L Carbon Dioxide 24 (21-32) mmol/L Anion Gap 19.3 H (5.0-14.0) mmol/L BUN 49 H (7-18) mg/dL Creatinine 3.0 H (0.6-1.0) mg/dL Est Cr Clr Drug Dosing 14.13 mL/min Estimated GFR (MDRD) 15 L (>60) Glucose 367 H (74-106) mg/dL Lactic Acid 3.3 H (0.4-2.0) mmol/L Calcium 8.4 L (8.5-10.1) mg/dL Total Bilirubin 0.7 (0.2-1.0) mg/dL AST 18 (15-37) U/L ALT 15 (12-78) U/L Alkaline Phosphatase 96 (46-116) U/L C-Reactive Protein 13.82 H (0.0-0.3) mg/dL Total Protein 6.6 (6.4-8.2) g/dL Albumin 2.4 L (3.4-5.0) g/dL Globulin 4.2 H (2.3-3.5) g/dL Albumin/Globulin Ratio 0.6 L (1.2-2.2) Procalcitonin ng/mL 12/20/20 12/20/20 12/20/20 Range/Units 10:30 13:18 13:21 WBC (4.5-11.0) K/uL RBC (3.30-5.50) M/uL Hgb (12.0-15.0) g/dL Hct (36.0-48.0) % MCV (80-98) fL MCH (27-31) pg MCHC (32-36) % Plt Count (150-400) K/uL Neut % (Auto) (36-66) % Lymph % (Auto) (24-44) % Sullivan % (Auto) (2-6) % Eos % (Auto) (2-4) % Baso % (Auto) (0-1) % Sodium (140-148) mmol/L Potassium 5.7 H (3.6-5.2) mmol/L Chloride (100-108) mmol/L Carbon Dioxide (21-32) mmol/L Anion Gap (5.0-14.0) mmol/L BUN (7-18) mg/dL Creatinine (0.6-1.0) mg/dL Est Cr Clr Drug Dosing mL/min Estimated GFR (MDRD) (>60) Glucose (74-106) mg/dL Lactic Acid 3.5 H (0.4-2.0) mmol/L Calcium (8.5-10.1) mg/dL Total Bilirubin (0.2-1.0) mg/dL AST (15-37) U/L ALT (12-78) U/L Alkaline Phosphatase (46-116) U/L C-Reactive Protein (0.0-0.3) mg/dL Total Protein (6.4-8.2) g/dL Albumin (3.4-5.0) g/dL Globulin (2.3-3.5) g/dL Albumin/Globulin Ratio (1.2-2.2) Procalcitonin 0.71 ng/mL Meds: Medications Generic Name Dose Route Start Last Admin Trade Name Freq PRN Reason Stop Dose Admin Dextrose/Water 50 ml 12/20/20 11:16 50% Dextrose In Water 50 Ml Syringe IVPUSH ASDIRECTED PRN Hypoglycemia Glucagon 1 mg 12/20/20 11:16 Glucagon,Human Recombinant 1 Mg Vial IM ASDIRECTED PRN Hypoglycemia Sodium Chloride 1,000 mls @ 500 mls/hr 12/20/20 14:30 Normal Saline IV ASDIRECTED TETE Discontinued Medications Generic Name Dose Route Start Last Admin Trade Name Freavelino PRN Reason Stop Dose Admin Albuterol/Ipratropium 3 ml 12/20/20 11:16 12/20/20 11:31 Albuterol/Ipratropium 3.0-0.5 Mg/3 Ml Neb Soln NEB 12/20/20 11:17 3 ml ONETIME ONE Administration Dextrose/Water 50 ml 12/20/20 11:16 12/20/20 11:45 50% Dextrose In Water 50 Ml Syringe IVPUSH 12/20/20 11:17 50 ml ONETIME ONE Administration Furosemide 20 mg 12/20/20 11:17 12/20/20 11:42 Furosemide 20 Mg/2 Ml Vial IVPUSH 12/20/20 11:18 20 mg ONETIME ONE Administration Ceftriaxone Sodium 1 gm/ 50 mls @ 100 mls/hr 12/20/20 12:15 12/20/20 12:17 Sodium Chloride IV 12/20/20 12:44 100 mls/hr ONETIME ONE Administration Doxycycline Hyclate 100 mg/ 100 mls @ 100 mls/hr 12/20/20 12:45 12/20/20 12:18 Sodium Chloride IV 12/20/20 13:44 100 mls/hr ONETIME ONE Administration Insulin Human Regular 5 unit 12/20/20 11:16 12/20/20 11:29 Insulin Regular, Human 100 Units/Ml 3 Ml Vial IVPUSH 12/20/20 11:17 5 units ONETIME ONE Administration Morphine Sulfate 2 mg 12/20/20 09:35 12/20/20 09:44 Morphine 2 Mg/Ml Syringe IVPUSH 12/20/20 09:36 2 mg ONETIME ONE Administration Sodium Bicarbonate 50 meq 12/20/20 11:19 12/20/20 11:35 Sodium Bicarbonate 8.4% 50 Meq/50 Ml Syringe IVPUSH 12/20/20 11:20 50 meq ONETIME ONE Administration Departure - Departure Time of Disposition: 14:45 Disposition: DC/Tfer to [facility] 02 Reason for Transfer *Q: Other Condition: Poor Clinical Impression: Sepsis Qualifiers: Sepsis type: sepsis due to unspecified organism Sepsis acute organ dysfunction status: with acute organ dysfunction Severe sepsis acute organ dysfunction type: acute renal failure Acute renal failure type: unspecified Left lower lobe pneumonia Qualifiers: Pneumonia type: due to unspecified organism Qualified Code(s): J18.9 - Pneumonia, unspecified organism Referrals: PCP,Unknown [Primary Care Provider] - Forms: ED Department Discharge Critical Care Note - Critical Care Note Total Time (mins): 35 Sepsis Event Note (ED) - Evaluation Sepsis Screening Result: Possible Sepsis Risk - Focused Exam Vital Signs: Vital Signs Temp Pulse Resp BP Pulse Ox 12/20/20 09:00 97.4 F 93 25 H 140/56 L 90 L 12/20/20 08:52 97.4 F 93 25 H 140/56 L 90 L - My Orders Last 24 Hours: My Active Orders 12/20/20 10:03 Vital Signs [RC] Q1H UA W/MICROSCOPIC [URIN] Routine Blood Culture x2 Reflex Set [OM.PC] Urgent 12/20/20 10:16 CULTURE BLOOD [BC] Urgent 12/20/20 10:25 CULTURE BLOOD [BC] Urgent 12/20/20 10:59 EKG Documentation Completion [RC] ASDIRECTED EKG 12 Lead [EK] Stat 12/20/20 11:16 Dextrose 50% in Water 50 ml IVPUSH ASDIRECTED PRN Glucagon,Human Recombinant [GlucaGen] 1 mg IM ASDIRECTED PRN 12/20/20 11:17 RT Aerosol Therapy [RC] ASDIRECTED 12/20/20 14:28 CORONAVIRUS COVID-19, REJI Urgent 12/20/20 14:30 Sodium Chloride 0.9% [Normal Saline] 1,000 ml IV ASDIRECTED - Assessment/Plan Last 24 Hours: My Active Orders 12/20/20 10:03 Vital Signs [RC] Q1H UA W/MICROSCOPIC [URIN] Routine Blood Culture x2 Reflex Set [OM.PC] Urgent 12/20/20 10:16 CULTURE BLOOD [BC] Urgent 12/20/20 10:25 CULTURE BLOOD [BC] Urgent 12/20/20 10:59 EKG Documentation Completion [RC] ASDIRECTED EKG 12 Lead [EK] Stat 12/20/20 11:16 Dextrose 50% in Water 50 ml IVPUSH ASDIRECTED PRN Glucagon,Human Recombinant [GlucaGen] 1 mg IM ASDIRECTED PRN 12/20/20 11:17 RT Aerosol Therapy [RC] ASDIRECTED 12/20/20 14:28 CORONAVIRUS COVID-19, REJI Urgent 12/20/20 14:30 Sodium Chloride 0.9% [Normal Saline] 1,000 ml IV ASDIRECTED Plan: Assessment Acuity = acute Site and laterality = community-acquired pneumonia concern for early sepsis Etiology = probable bacterial cause Manifestations = dyspnea Location of injury = Home Lab values = WBC elevated 27.1 consistent leukocytosis sodium low at 131 consistent hyponatremia potassium markedly elevated 6.3 initially and after treatment 5.7 consistent with hyperkalemia, creatinine elevated 3.0 consistent with acute renal failure stage G4 glucose elevated 367 consistent hyperglycemia lactic acid initially 3.3 and then 3 hours later 3.5 consistent with lactic acidosis CRP 13.87 procalcitonin 0.71 chest x-ray shows no left lower lobe infiltrate concerning for pneumonia EKG demonstrates a sinus rhythm no stenosis ST elevations or depressions Plan Call discussed case with Dr. Hadley emergency room physician at [facility] 1430 kindly excepted patient in transport will be transported via EMS ground, blood cultures have been done 1 g Rocephin 100 mg Rocephin initiated gentle fluids 1 L has been initiated. This note was dictated using [employer] voice recognition software please call with any questions on syntax or grammar.
[2020-12-20] MEDS ORDERED: Insulin Regular, Human 100 Units/ML 3 ML Vial IVPUSH ONE (11:16)
[2020-12-20] MEDS ORDERED: Glucagon,Human Recombinant 1 MG Vial IM PRN (11:16)
[2020-12-20] MEDS ORDERED: 50% Dextrose in Water 50 ML Syringe IVPUSH ONE (11:16)
[2020-12-20] MEDS ORDERED: 50% Dextrose in Water 50 ML Syringe IVPUSH PRN (11:16)
[2020-12-20] MEDS ORDERED: Albuterol/Ipratropium 3.0-0.5 MG/3 ML Neb Soln NEB ONE (11:16)
[2020-12-20] MEDS ORDERED: Furosemide 20 MG/2 ML VIAL IVPUSH ONE (11:17)
[2020-12-20] MEDS ORDERED: Sodium Bicarbonate 8.4% 50 MEQ/50 ML Syringe IVPUSH ONE (11:19)
[2020-12-20] MEDS ORDERED: cefTRIAXone 1 GM in Sodium Chloride 0.9% 50 ML IV ONE ×2 (11:24→12:15)
[2020-12-20] MEDS ORDERED: Doxycycline 100 MG in Sodium Chloride 0.9% 100 ML IV ONE ×2 (11:24→12:45)
[2020-12-20] MEDS ORDERED: Insulin Regular, Human 100 Units/ML 3 ML Vial SUBCUT ONE (11:29)
--- NOTE | 2020-12-20 11:47 | CR ---
CHEST: 2 view CLINICAL HISTORY:SOB COMPARISON:12/19/2020 FINDINGS: Heart size and pulmonary vascularity are normal. There are atherosclerotic changes in the aorta.. Lungs are generally hyperaerated. There is patchy density in the left lower lobe similar to prior study. There are pleural calcifications. There is some ankylosis of the upper thoracic spine IMPRESSION: Patchy left lower lobe density similar to prior study. There is some underlying chronic pleural parenchymal scarring. Superimposed infiltrate is suspected Slight pleural plaque consistent with previous asbestos exposure Emphysematous changes
[2020-12-20] MEDS ORDERED: Sodium Chloride 0.9% 1,000 ML IV SCH (14:30)
[2020-12-20 15:13] VITALS: BP 99/39; PULSE 89
== END 2020-12-20 15:58 ==
LOC: JP.ED 08:45
DX: A41.9 Sepsis, unspecified organism (principal); R65.21 Severe sepsis with septic shock; N17.9 Acute kidney failure, unspecified; J18.9 Pneumonia, unspecified organism; I11.0 Hypertensive heart disease with heart failure; I50.9 Heart failure, unspecified; J44.9 Chronic obstructive pulmonary disease, unspecified; K21.9 Gastro-esophageal reflux disease without esophagitis; E11.9 Type 2 diabetes mellitus without complications; Z79.899 Other long term (current) drug therapy; Z79.4 Long term (current) use of insulin; Z79.82 Long term (current) use of aspirin; Z87.891 Personal history of nicotine dependence
CPT/HCPCS: 36415; 71046; 80053; 83605; 84132; 84145; 85025; 86140; 87040; 93005; 94640; 96365; 96368; 96375; 99285; J0696; J1815; J1940; J2270; J3490; J7030; U0002; J7620-GY